=== PATIENT | female | born 1940 | race African-American/Black ===

== ENCOUNTER 2019-07-19 17:11 | Emergency (ER) | payer MEDICARE, OTHER ==
[~2019-07-19] VITALS: Ht 172.7 cm; Wt 99.8 kg
[~2019-07-19 17:11] MED LIST: APIX5TAB PO; ASPI-498 PO; ATOR20TA PO; CHOL400C10 PO; DRON400T PO; FURO1TAB33 PO; GABA300C10 PO; IBUP600T27 PO
[2019-07-19] MEDS ORDERED: cloNIDine HCL 0.1 MG TAB PO ONE (18:45)
[2019-07-19 19:08] LABS: Basophils # (auto) 0 uL; Basophils % (auto) 0.7 % (0.0-2.0); Eosinophils # (auto) 0.1 uL; Eosinophils % (auto) 2.3 % (0.0-7.0); Hematocrit 44.2 % (36.0-46.0); Hemoglobin 14.2 g/dL (12.2-16.2); Lymphocytes # (auto) 1.9 uL; Lymphocytes % (auto) 32.5 % (10.0-50.0); Mean Corpuscular Hemoglobin 28.9 pg (28.0-32.0); Mean Corpuscular Hgb Conc. 32.2 g/dL (32.0-36.0); Mean Corpuscular Volume 89.7 fL (80.0-100.0); Monocytes % (auto) 16.9 % (0.0-12.0); Neutrophils # (auto) 2.8 uL; Neutrophils % (auto) 47.6 % (37.0-80.0); Nucleated Red Blood Cells % 0.1 %; Platelet Count (auto) 178 10^3/uL (140-450); Red Blood Cells 4.92 10^6/uL (4.0-5.20); Red Cell Distribution Width 16.4 % (11.8-14.3)
[2019-07-19 19:22] LABS: Alanine Aminotransferase 14 U/L (13-56); Albumin 3.5 g/dL (3.4-5.0); Anion Gap 5 (5-15); Aspartate Aminotransferase 13 U/L (15-37); BUN/Creatinine Ratio 10.7; Blood Urea Nitrogen 11 mg/dL (7-18); Calcium 8.8 mg/dL (8.5-10.1); Carbon Dioxide 30 mmol/L (21-32); Chloride 104 mmol/L (98-107); GFR African American 67 mL/min; GFR Non-African American 55 mL/min; Glucose 83 mg/dL (74-106); Potassium 3.9 mmol/L (3.5-5.1); Sodium 139 mmol/L (136-145)
[2019-07-19 19:26] LABS: Alkaline Phosphatase 85 U/L (45-117); Bilirubin, Total 0.5 mg/dL (0.2-1.0); Total Protein 8.4 g/dL (6.4-8.2)
[2019-07-19 21:31] VITALS: BP 143/56
== END 2019-07-19 21:53 | disposition home or self-care (01) ==
LOC: ER 17:11
DX: R55 Syncope and collapse (principal); R07.9 Chest pain, unspecified; I10 Essential (primary) hypertension; I67.82 Cerebral ischemia; I48.91 Unspecified atrial fibrillation; E78.00 Pure hypercholesterolemia, unspecified; Z90.710 Acquired absence of both cervix and uterus
CPT/HCPCS: 36415; 70450; 71045; 80053; 83735; 84484; 85025; 93005; 94761

== ENCOUNTER 2020-04-16 15:20 | Inpatient (IN) | payer MEDICARE, OTHER ==
[~2020-04-16] VITALS: Ht 172.7 cm; Wt 96.6 kg
[2020-04-16] MEDS ORDERED: SOTA80TA62 PO (15:28)
[2020-04-16] MEDS ORDERED: IBUP800T24 PO (15:28)
[2020-04-16] MEDS ORDERED: POTA10TA75 PO (15:28)
[2020-04-16] MEDS ORDERED: FUR20T PO (15:28)
[2020-04-16] MEDS ORDERED: HYDR-2691 PO (15:28)
[2020-04-16 15:53] LABS: Basophils # (auto) 0 10 ^3/uL (0-0.2); Basophils % (auto) 0.8 % (0.0-2.0); Eosinophils # (auto) 0.3 10 ^3/uL (0-0.8); Eosinophils % (auto) 7.1 % (0.0-7.0); Hematocrit 41.1 % (36.0-46.0); Hemoglobin 12.9 g/dL (12.2-16.2); Lymphocytes # (auto) 1.5 10 ^3/uL (0.4-5.4); Lymphocytes % (auto) 32.4 % (10.0-50.0); Mean Corpuscular Hgb Conc. 31.5 g/dL (32.0-36.0); Mean Corpuscular Volume 88.9 fL (80.0-100.0); Monocytes # (auto) 0.8 10 ^3/uL (0-1.3); Monocytes % (auto) 17.3 % (0.0-12.0); Neutrophils % (auto) 42.4 % (37.0-80.0); Nucleated Red Blood Cells % 0.1 %; Platelet Count (auto) 204 10^3/uL (140-450); Red Blood Cells 4.62 10^6/uL (4.0-5.20); Red Cell Distribution Width 17.8 % (11.8-14.3); White Blood Cell 4.6 10^3/uL (4.4-10.8)
[2020-04-16 16:07] LABS: Alanine Aminotransferase 15 U/L (13-56); Albumin 3.6 g/dL (3.4-5.0); Anion Gap 7 (5-15); Aspartate Aminotransferase 11 U/L (15-37); BUN/Creatinine Ratio 15.2; Blood Urea Nitrogen 17 mg/dL (7-18); Calcium 8.6 mg/dL (8.5-10.1); Carbon Dioxide 29 mmol/L (21-32); Chloride 106 mmol/L (98-107); GFR African American 61 mL/min; GFR Non-African American 50 mL/min; Glucose 108 mg/dL (74-106); Sodium 142 mmol/L (136-145)
[2020-04-16 16:12] LABS: Alkaline Phosphatase 92 U/L (45-117); Bilirubin, Total 0.4 mg/dL (0.2-1.0); Total Protein 8.2 g/dL (6.4-8.2)
[2020-04-16 16:30] LABS: INR 1.03 (0.9-1.15); Partial Thromboplastin Time 29.7 sec (23.0-31.2)
[2020-04-16] MEDS ORDERED: DOPamine 1600MCG/ML D5W 250 ML IV ONE (17:15)
[2020-04-16] MEDS ORDERED: IBUPROFEN 600 MG TAB PO PRN (18:30)
[2020-04-16] MEDS ORDERED: NITROGLYCERIN 0.4 MG SL TAB SL PRN (18:30)
[2020-04-16] MEDS ORDERED: MORPHINE SULF INJ 2 MG/ML SYRINGE 1ML IV PRN (18:30)
[2020-04-16] MEDS ORDERED: ONDANSETRON HCL 4 MG/2 ML VIAL IV PRN (18:30)
[2020-04-16 19:09] LABS: Urine WBC None Seen /hpf (0 - 5)
[2020-04-16 20:13] LABS: Urine Bacteria NONE SEEN /hpf (None Seen); Urine Blood TRACE /uL (Negative); Urine Specific Gravity 1.011 (1.001-1.035)
[2020-04-16] MEDS ORDERED: DOPamine 1600MCG/ML D5W 250 ML IV SCH (21:10)
--- NOTE | 2020-04-16 22:15 | NUR ---
Telemetry admit from LIZETTE KAUR admitted to Telemetry unit after SBAR received. Patient oriented to Taylor Teresa, primary RN, unit, room, bed, and unit policies regarding patient care and visiting hours. Patient now on continuous telemetry monitoring, tele box # [id number] and telemetry reading on arrival to unit is bradycardia. Patient placed on bedside oxygen, weighed by bedscale and encouraged to call if they need something. All questions and concerns addressed, patient verbalized understanding.
[2020-04-16] MEDS: POTASSIUM CHL 10 Meq TABLET PO SCH (22:44)
[2020-04-16] MEDS: APIXABAN 5 MG TAB PO SCH (22:45)
[2020-04-16] MEDS: GABAPENTIN 300 MG CAP PO SCH (22:45)
[2020-04-16] MEDS: hydrALAZINE HCL 25 MG TAB PO SCH (22:46)
[2020-04-16] MEDS: HYDROcodone-ACET 5/325MG TAB PO PRN (22:46)
--- NOTE | 2020-04-16 22:46 | NUR ---
Patient complains of headache at 03/20, [place] PO given, will continue to monitor.
--- NOTE | 2020-04-16 23:50 | NUR ---
Latest pain level is 3/10, will continue care.
[2020-04-17 05:00] VITALS: BP 116/67
[2020-04-17 06:19] LABS: Hematocrit 41.7 % (36.0-46.0); Hemoglobin 13.1 g/dL (12.2-16.2); Mean Corpuscular Hemoglobin 28.2 pg (28.0-32.0); Mean Corpuscular Hgb Conc. 31.5 g/dL (32.0-36.0); Mean Corpuscular Volume 89.6 fL (80.0-100.0); Platelet Count (auto) 178 10^3/uL (140-450); Red Blood Cells 4.66 10^6/uL (4.0-5.20); Red Cell Distribution Width 17.8 % (11.8-14.3)
[2020-04-17 06:25] LABS: Band Neutrophils % (manual) 0; Basophils % (manual) 0 (0.0-2.0); Blast Cells 0; Metamyelocytes % 0; Myelocytes % 0; Promyelocytes % 0; Reactive Lymphocytes 0
[2020-04-17 06:34] LABS: Albumin 3.2 g/dL (3.4-5.0); Anion Gap 4 (5-15); Blood Urea Nitrogen 14 mg/dL (7-18); Calcium 8.4 mg/dL (8.5-10.1); Carbon Dioxide 28 mmol/L (21-32); Chloride 108 mmol/L (98-107); Glucose 97 mg/dL (74-106); Potassium 3.8 mmol/L (3.5-5.1); Sodium 140 mmol/L (136-145)
[2020-04-17 06:39] LABS: Alanine Aminotransferase 12 U/L (13-56); Alkaline Phosphatase 80 U/L (45-117); Aspartate Aminotransferase 12 U/L (15-37); BUN/Creatinine Ratio 17.5; Bilirubin, Total 0.4 mg/dL (0.2-1.0); GFR African American 89 mL/min; GFR Non-African American 74 mL/min; Total Protein 7.2 g/dL (6.4-8.2)
[2020-04-17 07:21] LABS: Lymphocytes % (manual) 36 (10.0-50.0)
[2020-04-17 07:22] LABS: Eosinophils % (manual) 9 (0-7); Monocytes % (manual) 16 (0-12)
--- NOTE | 2020-04-17 07:30 | NUR ---
Opening shift note Assumed care of patient from NOC RN. Patient is AOx4, no s/s of distress noted. Bed is in lowest locked position, side rails up x2, and call light is within reach. Updated patient on plan of care and patient ,educated patient to call for assistance as needed. verbalized understanding. Will continue to monitor q1hr and PRN.
[2020-04-17 09:00] VITALS: BP 140/80
[2020-04-17] MEDS ORDERED: ATORVASTATIN 20 MG TAB PO SCH (10:00)
[2020-04-17] MEDS ORDERED: CHOLECALCIFEROL (VITD3) 1,000UNIT=25mCg TAB PO SCH (10:00)
[2020-04-17] MEDS ORDERED: ASPirin-EC 81 mg tab PO SCH (10:00)
[2020-04-17] MEDS ORDERED: CHOLECALCIFEROL 1000 UNIT PO SCH (10:00)
[2020-04-17] MEDS ORDERED: FUROSEMIDE 20 MG TAB PO SCH (10:00)
[2020-04-17] MEDS: APIXABAN 5 MG TAB PO SCH (10:21)
[2020-04-17] MEDS: GABAPENTIN 300 MG CAP PO SCH (10:21)
[2020-04-17] MEDS: POTASSIUM CHL 10 Meq TABLET PO SCH (10:22)
[2020-04-17] MEDS: HYDROcodone-ACET 5/325MG TAB PO PRN ×2 (10:23→15:35)
[2020-04-17] MEDS: hydrALAZINE HCL 25 MG TAB PO SCH (10:23)
--- NOTE | 2020-04-17 11:35 | NUR ---
Physician rounding Dr. Turner at bedside. Updated MD on patient status. Per MD patient can be DC/'d if cleared by cardio. No new orders received. Will continue care.
[2020-04-17 12:41] VITALS: BP 136/78
--- NOTE | 2020-04-17 14:24 | NUR ---
Physician rounding Dr. Walker at nurses station. Updated him on patient status, per MD patient can be D/C'd today. Will notify Dr. Turner. Will continue care.
[2020-04-17 16:11] VITALS: BP 138/63
[2020-04-17 17:00] VITALS: BP 142/80
--- NOTE | 2020-04-17 17:00 | NUR ---
Discharge note Discharge instructions given as ordered. Encourage to follow up with PMD as instructed. All questions and concerns addressed. Patient verbalized understanding. IV removed with catheter intact, pressure dressing applied. Telemetry unit returned to ICU. Patient stated "I would like to walk down to the lobby and wait for my ride. Patient ambulated to main lobby with all personal belongings, accompanied by staff member. No distress noted at time of departure.
== END 2020-04-17 17:00 | disposition home or self-care (01) | DRG 311 ==
LOC: ER 15:20 → TELE 15:21 → TELE-WESTW 22:15
PROVIDERS: ADMIT Specialist; ATTEND Specialist
DX: I24.9 Acute ischemic heart disease, unspecified (principal); I25.110 Atherosclerotic heart disease of native coronary artery with unstable angina pectoris; I11.0 Hypertensive heart disease with heart failure; R00.1 Bradycardia, unspecified; E78.5 Hyperlipidemia, unspecified; I27.20 Pulmonary hypertension, unspecified; I48.0 Paroxysmal atrial fibrillation; J43.9 Emphysema, unspecified; Z79.01 Long term (current) use of anticoagulants; Z82.49 Family history of ischemic heart disease and other diseases of the circulatory system; Z90.710 Acquired absence of both cervix and uterus; Z87.891 Personal history of nicotine dependence; Z98.51 Tubal ligation status; I50.9 Heart failure, unspecified
CPT/HCPCS: 36415; 71045; 80053; 81001; 84484; 85007; 85025; 85027; 85610; 85730; 93005; 99291; G0378

== ENCOUNTER 2021-01-21 22:17 | Inpatient (IN) | payer MEDICARE, OTHER ==
[~2021-01-21] VITALS: Ht 172.7 cm; Wt 96.6 kg
[~2021-01-21 22:17] MED LIST changes: +FUR20T PO; +HYDR25TA87 PO; +IBUP800T26 PO; +POTA-264 PO; +SOTA80TA62 PO
[2021-01-21 23:27] LABS: Basophils # (auto) 0 10 ^3/uL (0-0.2); Basophils % (auto) 0.5 % (0.0-2.0); Eosinophils # (auto) 0.3 10 ^3/uL (0-0.8); Eosinophils % (auto) 3.7 % (0.0-7.0); Hematocrit 40.4 % (36.0-46.0); Hemoglobin 13.6 g/dL (12.2-16.2); Lymphocytes # (auto) 1.6 10 ^3/uL (0.4-5.4); Lymphocytes % (auto) 23.7 % (10.0-50.0); Mean Corpuscular Hemoglobin 29.9 pg (28.0-32.0); Mean Corpuscular Hgb Conc. 33.6 g/dL (32.0-36.0); Mean Corpuscular Volume 89.1 fL (80.0-100.0); Monocytes # (auto) 0.7 10 ^3/uL (0-1.3); Monocytes % (auto) 10.4 % (0.0-12.0); Neutrophils # (auto) 4.3 10 ^3/uL (1.6-8.6); Neutrophils % (auto) 61.7 % (37.0-80.0); Nucleated Red Blood Cells % 0.1 %; Platelet Count (auto) 198 10^3/uL (140-450); Red Blood Cells 4.53 10^6/uL (4.0-5.20); Red Cell Distribution Width 17.3 % (11.8-14.3)
[2021-01-21 23:45] LABS: Albumin 3.8 g/dL (3.4-5.0); BUN/Creatinine Ratio 12.5; Calcium 8.7 mg/dL (8.5-10.1); Magnesium 2.1 mg/dL (1.6-2.6); Potassium 3.9 mmol/L (3.5-5.1)
[2021-01-21 23:50] LABS: Bilirubin, Total 0.5 mg/dL (0.2-1.0); Total Protein 8.1 g/dL (6.4-8.2)
[2021-01-21 23:57] LABS: INR 0.99 (0.9-1.15)
[2021-01-22] MEDS ORDERED: ASPirin 81 mg TAB PO ONE (00:30)
[2021-01-22] MEDS ORDERED: ONDANSETRON HCL 4 MG/2 ML VIAL IV ONE (01:00)
[2021-01-22] MEDS ORDERED: MORPHINE SULF INJ 2 MG/ML SYRINGE 1ML IV ONE (01:00)
[2021-01-22] MEDS ORDERED: NITROGLYCERIN 0.4 MG SL TAB SL PRN (03:45)
[2021-01-22] MEDS ORDERED: MORPHINE SULF INJ 2 MG/ML SYRINGE 1ML IV PRN ×2 (03:45)
[2021-01-22] MEDS ORDERED: BACLOFEN 10 MG TAB PO PRN (03:45)
[2021-01-22] MEDS ORDERED: ONDANSETRON HCL 4 MG/2 ML VIAL IV PRN (03:45)
[2021-01-22] MEDS ORDERED: ENOXAPARIN SOD 100 MG/1 ML SYRINGE SC ONE (04:30)
[2021-01-22 05:27] VITALS: BP 156/68
[2021-01-22] MEDS ORDERED: FURO20TA3 PO (06:22)
[2021-01-22] MEDS ORDERED: BACL10TA PO (06:26)
[2021-01-22] MEDS ORDERED: ACET-1156 PO (06:26)
[2021-01-22 07:30] LABS: Basophils # (auto) 0 10 ^3/uL (0-0.2); Basophils % (auto) 0.6 % (0.0-2.0); Eosinophils # (auto) 0 10 ^3/uL (0-0.8); Eosinophils % (auto) 0.6 % (0.0-7.0); Hematocrit 40.7 % (36.0-46.0); Hemoglobin 13.2 g/dL (12.2-16.2); Lymphocytes # (auto) 1.8 10 ^3/uL (0.4-5.4); Mean Corpuscular Hemoglobin 28.8 pg (28.0-32.0); Mean Corpuscular Hgb Conc. 32.4 g/dL (32.0-36.0); Mean Corpuscular Volume 88.9 fL (80.0-100.0); Monocytes # (auto) 0.9 10 ^3/uL (0-1.3); Monocytes % (auto) 12.3 % (0.0-12.0); Neutrophils # (auto) 4.5 10 ^3/uL (1.6-8.6); Neutrophils % (auto) 61.5 % (37.0-80.0); Nucleated Red Blood Cells % 0.1 %; Platelet Count (auto) 187 10^3/uL (140-450); Red Blood Cells 4.58 10^6/uL (4.0-5.20); Red Cell Distribution Width 16.7 % (11.8-14.3); White Blood Cell 7.3 10^3/uL (4.4-10.8)
[2021-01-22 07:47] LABS: Albumin 3.2 g/dL (3.4-5.0); Calcium 8.4 mg/dL (8.5-10.1); Potassium 3.9 mmol/L (3.5-5.1)
[2021-01-22 07:52] LABS: Bilirubin, Total 0.6 mg/dL (0.2-1.0); Total Protein 7.3 g/dL (6.4-8.2)
[2021-01-22 09:00] VITALS: BP 141/68
[2021-01-22] MEDS: SOTALOL HCL 80 MG TAB PO SCH ×2 (09:54→21:53)
[2021-01-22] MEDS: FUROSEMIDE 20 MG TAB PO SCH (09:55)
[2021-01-22] MEDS: GABAPENTIN 300 MG CAP PO SCH ×2 (09:55→21:53)
[2021-01-22] MEDS: ATORVASTATIN 20 MG TAB PO SCH (09:56)
[2021-01-22] MEDS: APIXABAN 5 MG TAB PO SCH ×2 (09:56→21:53)
[2021-01-22] MEDS: hydrALAZINE HCL 25 MG TAB PO SCH ×2 (09:56→21:54)
[2021-01-22] MEDS: POTASSIUM CHL 10 Meq TABLET PO SCH ×2 (09:57→21:54)
[2021-01-22] MEDS ORDERED: ISOSORBIDE MONONITRATE ER 60 MG TAB PO SCH (10:00)
[2021-01-22 13:00] VITALS: BP 115/58
[2021-01-22 16:51] VITALS: BP 92/58
[2021-01-22 21:54] VITALS: BP 113/55
[2021-01-23 05:00] VITALS: BP 103/56
[2021-01-23 05:21] LABS: Basophils # (auto) 0 10 ^3/uL (0-0.2); Basophils % (auto) 0.4 % (0.0-2.0); Eosinophils # (auto) 0.2 10 ^3/uL (0-0.8); Eosinophils % (auto) 3.6 % (0.0-7.0); Hematocrit 37.2 % (36.0-46.0); Hemoglobin 12.6 g/dL (12.2-16.2); Lymphocytes # (auto) 2.6 10 ^3/uL (0.4-5.4); Lymphocytes % (auto) 44.1 % (10.0-50.0); Mean Corpuscular Hemoglobin 29.9 pg (28.0-32.0); Mean Corpuscular Hgb Conc. 33.9 g/dL (32.0-36.0); Mean Corpuscular Volume 88.4 fL (80.0-100.0); Monocytes % (auto) 17.1 % (0.0-12.0); Neutrophils # (auto) 2.1 10 ^3/uL (1.6-8.6); Neutrophils % (auto) 34.8 % (37.0-80.0); Nucleated Red Blood Cells % 0.1 %; Platelet Count (auto) 160 10^3/uL (140-450); Red Blood Cells 4.21 10^6/uL (4.0-5.20); Red Cell Distribution Width 16.7 % (11.8-14.3); White Blood Cell 5.9 10^3/uL (4.4-10.8)
[2021-01-23 05:31] LABS: Calcium 8.2 mg/dL (8.5-10.1); Potassium 4.1 mmol/L (3.5-5.1)
[2021-01-23 05:36] LABS: BUN/Creatinine Ratio 15.7; Bilirubin, Total 0.5 mg/dL (0.2-1.0); Total Protein 6.6 g/dL (6.4-8.2)
[2021-01-23 09:00] VITALS: BP 127/73
[2021-01-23] MEDS: ATORVASTATIN 20 MG TAB PO SCH (09:07)
[2021-01-23] MEDS: APIXABAN 5 MG TAB PO SCH ×2 (09:07→22:27)
[2021-01-23] MEDS: SOTALOL HCL 80 MG TAB PO SCH ×2 (09:07→22:00)
[2021-01-23] MEDS: ISOSORBIDE MONONITRATE ER 60 MG TAB PO SCH (09:09)
[2021-01-23] MEDS: POTASSIUM CHL 10 Meq TABLET PO SCH ×2 (09:10→22:27)
[2021-01-23] MEDS: FUROSEMIDE 20 MG TAB PO SCH (09:11)
[2021-01-23] MEDS: GABAPENTIN 300 MG CAP PO SCH ×2 (09:11→22:28)
[2021-01-23] MEDS: hydrALAZINE HCL 25 MG TAB PO SCH ×2 (09:11→22:26)
[2021-01-23 13:00] VITALS: BP 118/64
[2021-01-23] MEDS: IBUPROFEN 600 MG TAB PO PRN (15:51)
[2021-01-23 16:27] VITALS: BP 139/71
[2021-01-23 22:00] VITALS: BP 142/78
[2021-01-24 05:00] VITALS: BP 126/73
[2021-01-24] MEDS: IBUPROFEN 600 MG TAB PO PRN ×2 (06:47→22:37)
[2021-01-24 08:51] VITALS: BP 127/55
[2021-01-24] MEDS: FUROSEMIDE 20 MG TAB PO SCH (09:19)
[2021-01-24] MEDS: APIXABAN 5 MG TAB PO SCH ×2 (09:20→21:53)
[2021-01-24] MEDS: ATORVASTATIN 20 MG TAB PO SCH (09:20)
[2021-01-24] MEDS: GABAPENTIN 300 MG CAP PO SCH ×2 (09:20→21:54)
[2021-01-24] MEDS: POTASSIUM CHL 10 Meq TABLET PO SCH ×2 (09:20→21:54)
[2021-01-24] MEDS: hydrALAZINE HCL 25 MG TAB PO SCH ×2 (09:21→21:53)
[2021-01-24] MEDS: SOTALOL HCL 80 MG TAB PO SCH ×2 (09:22→22:00)
[2021-01-24] MEDS: ISOSORBIDE MONONITRATE ER 60 MG TAB PO SCH (09:22)
[2021-01-24 12:48] VITALS: BP 117/57
[2021-01-24 16:48] VITALS: BP 103/53
[2021-01-24 22:00] VITALS: BP 124/73
[2021-01-25 05:00] VITALS: BP 122/53
[2021-01-25 08:00] VITALS: BP 124/73
[2021-01-25] MEDS: hydrALAZINE HCL 25 MG TAB PO SCH (08:46)
[2021-01-25] MEDS: SOTALOL HCL 80 MG TAB PO SCH (08:47)
[2021-01-25] MEDS: ISOSORBIDE MONONITRATE ER 60 MG TAB PO SCH (08:47)
[2021-01-25] MEDS: APIXABAN 5 MG TAB PO SCH (08:47)
[2021-01-25] MEDS: POTASSIUM CHL 10 Meq TABLET PO SCH (08:48)
[2021-01-25] MEDS: ATORVASTATIN 20 MG TAB PO SCH (08:48)
[2021-01-25] MEDS: FUROSEMIDE 20 MG TAB PO SCH (08:48)
[2021-01-25] MEDS: GABAPENTIN 300 MG CAP PO SCH (08:48)
[2021-01-25 09:12] VITALS: BP 122/98
[2021-01-25 09:29] VITALS: BP 122/98
== END 2021-01-25 11:47 | disposition home or self-care (01) | DRG 282 ==
LOC: ER 22:18 → TELE 01-22 03:36 → TELE-WESTW 01-22 05:21
PROVIDERS: ADMIT Internal Medicine; ATTEND Internal Medicine
DX: I21.4 Non-ST elevation (NSTEMI) myocardial infarction (principal); I25.110 Atherosclerotic heart disease of native coronary artery with unstable angina pectoris; E78.5 Hyperlipidemia, unspecified; I10 Essential (primary) hypertension; I27.20 Pulmonary hypertension, unspecified; I48.0 Paroxysmal atrial fibrillation; Z20.822 Contact with and (suspected) exposure to COVID-19; J43.9 Emphysema, unspecified; Z79.01 Long term (current) use of anticoagulants; Z79.899 Other long term (current) drug therapy; Z82.49 Family history of ischemic heart disease and other diseases of the circulatory system; Z87.891 Personal history of nicotine dependence; Z90.710 Acquired absence of both cervix and uterus
CPT/HCPCS: 36415; 71045; 80053; 83735; 83880; 84484; 85025; 85610; 87426; 93005; 93306; 96372; 96374; 96375; G0378; J2405

== ENCOUNTER 2023-09-06 13:04 | Inpatient (IN) | payer MEDICARE, OTHER ==
[~2023-09-06] VITALS: Ht 172.7 cm; Wt 72.5 kg
[~2023-09-06 13:04] MED LIST changes: +ACET-1881 PO; -ASPI-498 PO; +BACL10TA PO; -CHOL400C10 PO; -DRON400T PO; -FUR20T PO; -FURO1TAB33 PO; +FURO20TA3 PO; +GABA-1250 PO; -GABA300C10 PO; +IBUP-1454 PO; -IBUP600T27 PO; -IBUP800T26 PO
[2023-09-06 14:05] LABS: Basophils # (auto) 0 10 ^3/uL (0-0.2); Basophils % (auto) 0.7 % (0.0-2.0); Eosinophils # (auto) 0.1 10 ^3/uL (0-0.8); Eosinophils % (auto) 2.1 % (0.0-7.0); Hemoglobin 14.2 g/dL (12.2-16.2); Lymphocytes % (auto) 32.7 % (10.0-50.0); Mean Corpuscular Hemoglobin 29.4 pg (28.0-32.0); Mean Corpuscular Hgb Conc. 32.3 g/dL (32.0-36.0); Mean Corpuscular Volume 90.9 fL (80.0-100.0); Monocytes # (auto) 0.8 10 ^3/uL (0-1.3); Monocytes % (auto) 13.8 % (0.0-12.0); Neutrophils # (auto) 3.1 10 ^3/uL (1.6-8.6); Neutrophils % (auto) 50.7 % (37.0-80.0); Nucleated Red Blood Cells % 0.2 %; Red Blood Cells 4.84 10^6/uL (4.0-5.20)
[2023-09-06 14:10] LABS: Alkaline Phosphatase 84 U/L (46-116); Anion Gap 12 (5-15); Aspartate Aminotransferase 19 U/L (13-40); BUN/Creatinine Ratio 16.3 (10.0-20.0); Bilirubin, Total 0.8 mg/dL (0.2-1.0); Blood Urea Nitrogen 14 mg/dL (9-23); Carbon Dioxide 22 mmol/L (20-30); Chloride 106 mmol/L (98-107); Glucose 121 mg/dL (74-106); Potassium 3.9 mmol/L (3.5-5.1); Sodium 140 mmol/L (136-145); Total Protein 7.1 g/dL (5.7-8.2)
[2023-09-06 14:15] LABS: Alanine Aminotransferase 9 U/L (7-40)
[2023-09-06] MEDS ORDERED: SODIUM CHLORIDE 0.9% 1,000 ML IV ONE ×2 (14:15→18:00)
[2023-09-06 14:17] VITALS: PULSE 122; RESP 19; O2SAT 100
[2023-09-06] MEDS ORDERED: METOPROLOL TARTRATE 1MG/1ML-5ML VIAL IV ONE ×2 (15:00→16:30)
[2023-09-06 15:16] VITALS: PULSE 113; RESP 19; O2SAT 98
[2023-09-06 16:23] LABS: Lactic Acid w/Reflex 2.1 mmol/L (0.4-2.0)
[2023-09-06] MEDS ORDERED: dilTIAZem 125mg/125ml BAG KIT 125 ML IV ONE (17:15)
[2023-09-06] MEDS ORDERED: FUROSEMIDE 40 MG/4 ML VIAL IV ONE (18:00)
[2023-09-06] MEDS ORDERED: PIPERACILLIN-TAZOB 3.375GM 100 ML IV ONE (18:00)
[2023-09-06 18:56] LABS: Urine Bacteria NONE SEEN /hpf (None Seen); Urine Blood 2+ /uL (Negative); Urine Clarity Clear (Clear); Urine Color Yellow (Yellow); Urine Hyaline Cast FEW /lpf (0 - 2); Urine Mucus FEW (None Seen); Urine Protein, UAD 1+ (Negative); Urine Specific Gravity 1.014 (1.001-1.035); Urine Urobilinogen Normal (Negative); Urine WBC 1 /hpf (0 - 5)
[2023-09-06 19:30] VITALS: PULSE 97; RESP 18; O2SAT 98
[2023-09-06] MEDS ORDERED: dilTIAZem 125mg/125ml BAG KIT 125 ML IV SCH (21:00)
[2023-09-06] MEDS ORDERED: MORPHINE SULFATE INJ 2 MG/ml SYRG IV PRN (21:00)
[2023-09-06] MEDS ORDERED: NITROGLYCERIN 0.4 MG SL TAB SL PRN (21:00)
[2023-09-06] MEDS ORDERED: ONDANSETRON HCL 4 MG/2 ML VIAL IV PRN (21:00)
[2023-09-06 21:55] VITALS: PULSE 157; RESP 17; O2SAT 99
[2023-09-06] MEDS: APIXABAN 5 MG TAB PO SCH (22:05)
[2023-09-06] MEDS: ATORVASTATIN 20 MG TAB PO SCH (22:05)
[2023-09-07] VITALS (67 sets, daily range): BP systolic 90–154; BP diastolic 55–97; PULSE 70–160; RESP 13–32; TEMP 97.6–98.5; O2SAT 76–100
[2023-09-07] MEDS ORDERED: ACETAMINOPHEN 325 MG TAB PO ONE (06:00)
[2023-09-07 07:42] LABS: Hematocrit 40.3 % (36.0-46.0); Hemoglobin 12.7 g/dL (12.2-16.2); Mean Corpuscular Hemoglobin 29.4 pg (28.0-32.0); Mean Corpuscular Hgb Conc. 31.6 g/dL (32.0-36.0); Mean Corpuscular Volume 92.9 fL (80.0-100.0); Red Blood Cells 4.33 10^6/uL (4.0-5.20); Red Cell Distribution Width 17.3 % (11.8-14.3); White Blood Cell 5.5 10^3/uL (4.4-10.8)
[2023-09-07 08:01] LABS: Basophils % (manual) 0 (0.0-2.0); Blast Cells 0; Metamyelocytes % 0; Myelocytes % 0; Promyelocytes % 0; Reactive Lymphocytes 0
[2023-09-07 08:07] LABS: Alkaline Phosphatase 73 U/L (46-116); Anion Gap 10 (5-15); Calcium 8.7 mg/dL (8.5-10.1); Carbon Dioxide 26 mmol/L (20-30); Chloride 107 mmol/L (98-107); Glucose 125 mg/dL (74-106); Potassium 3.2 mmol/L (3.5-5.1); Sodium 143 mmol/L (136-145)
[2023-09-07 08:08] LABS: Albumin 3.7 g/dL (3.2-4.8); Aspartate Aminotransferase 14 U/L (13-40); BUN/Creatinine Ratio 11.9 (10.0-20.0); Bilirubin, Total 0.5 mg/dL (0.2-1.0); Blood Urea Nitrogen 10 mg/dL (9-23); Total Protein 6.8 g/dL (5.7-8.2)
[2023-09-07 08:14] LABS: Alanine Aminotransferase < 9 U/L (7-40)
[2023-09-07 08:30] LABS: Band Neutrophils % (manual) 1; Lymphocytes % (manual) 30 (10.0-50.0)
[2023-09-07 08:31] LABS: Anisocytosis Slight; Eosinophils % (manual) 2 (0-7); Hypochromia Slight; Monocytes % (manual) 17 (0-12)
[2023-09-07 08:32] LABS: Platelet Estimate Adequate
[2023-09-07] MEDS: APIXABAN 5 MG TAB PO SCH ×2 (08:54→22:42)
[2023-09-07] MEDS ORDERED: POTASSIUM CHL 20MEQ/100ML 100 ML IV SCH (09:00)
[2023-09-07] MEDS ORDERED: POTASSIUM EFFERVESENT TAB 25 MEQ PO ONE (09:15)
[2023-09-07] MEDS: dilTIAZem HCL 60 MG TAB PO SCH ×3 (09:32→17:37)
[2023-09-07] MEDS: POTASSIUM CHL 10 Meq TABLET PO SCH (10:00)
[2023-09-07] MEDS ORDERED: SOTALOL HCL 80 MG TAB PO SCH ×2 (10:00→22:00)
[2023-09-07] MEDS ORDERED: hydroCHLOROthiazide 25 MG TAB PO SCH (10:00)
[2023-09-07] MEDS ORDERED: DIGOXIN 0.25 MG TAB PO ONE (20:15)
[2023-09-07] MEDS: IBUPROFEN 400 MG TAB PO PRN (20:58)
[2023-09-07] MEDS: ATORVASTATIN 20 MG TAB PO SCH (22:42)
[2023-09-08] VITALS (53 sets, daily range): BP systolic 85–130; BP diastolic 52–72; PULSE 54–109; RESP 11–29; TEMP 97.1–98.4; O2SAT 63–100
[2023-09-08] MEDS ORDERED: DIGOXIN 0.25 MG TAB PO ONE ×3 (02:00→15:00)
[2023-09-08 04:03] LABS: Chloride 108 mmol/L (98-107); Hemoglobin 12.3 g/dL (12.2-16.2); Mean Corpuscular Hgb Conc. 33.1 g/dL (32.0-36.0); Mean Corpuscular Volume 90.7 fL (80.0-100.0); Potassium 3.6 mmol/L (3.5-5.1); Red Blood Cells 4.08 10^6/uL (4.0-5.20); Red Cell Distribution Width 17.2 % (11.8-14.3); Sodium 140 mmol/L (136-145); White Blood Cell 4.6 10^3/uL (4.4-10.8)
[2023-09-08 04:04] LABS: Anion Gap 5 (5-15); Carbon Dioxide 27 mmol/L (20-30)
[2023-09-08 04:05] LABS: Calcium 8.4 mg/dL (8.7-10.4)
[2023-09-08 04:09] LABS: Glucose 93 mg/dL (74-106)
[2023-09-08 04:10] LABS: BUN/Creatinine Ratio 9.7 (10.0-20.0); Blood Urea Nitrogen 7 mg/dL (9-23)
[2023-09-08 04:13] LABS: Basophils % (manual) 0 (0.0-2.0); Blast Cells 0; Promyelocytes % 0; Reactive Lymphocytes 0
[2023-09-08] MEDS: dilTIAZem HCL 60 MG TAB PO SCH ×5 (06:00→23:54)
[2023-09-08 07:48] LABS: Band Neutrophils % (manual) 6; Eosinophils % (manual) 5 (0-7); Lymphocytes % (manual) 26 (10.0-50.0); Metamyelocytes % 7; Monocytes % (manual) 14 (0-12); Myelocytes % 11; Platelet Estimate Adequate
[2023-09-08] MEDS: POTASSIUM CHL 10 Meq TABLET PO SCH (09:31)
[2023-09-08] MEDS: APIXABAN 5 MG TAB PO SCH ×2 (09:31→21:20)
[2023-09-08] MEDS: IBUPROFEN 400 MG TAB PO PRN (11:48)
[2023-09-08] MEDS: SOTALOL HCL 80 MG TAB PO SCH ×2 (13:52→21:20)
[2023-09-08] MEDS: ATORVASTATIN 20 MG TAB PO SCH (21:20)
[2023-09-09] VITALS (10 sets, daily range): BP systolic 95–149; BP diastolic 57–80; PULSE 52–86; RESP 17–22; TEMP 97.5–98.4; O2SAT 94–99
[2023-09-09] MEDS: IBUPROFEN 400 MG TAB PO PRN ×3 (02:02→21:41)
[2023-09-09 05:38] LABS: Hematocrit 37.4 % (36.0-46.0); Hemoglobin 11.9 g/dL (12.2-16.2); Mean Corpuscular Hemoglobin 29.1 pg (28.0-32.0); Mean Corpuscular Hgb Conc. 31.9 g/dL (32.0-36.0); Mean Corpuscular Volume 91.2 fL (80.0-100.0); Red Cell Distribution Width 16.8 % (11.8-14.3); White Blood Cell 5.4 10^3/uL (4.4-10.8)
[2023-09-09 05:39] LABS: Anion Gap 6 (5-15); Carbon Dioxide 25 mmol/L (20-30); Chloride 107 mmol/L (98-107); Potassium 3.6 mmol/L (3.5-5.1); Sodium 138 mmol/L (136-145)
[2023-09-09 05:40] LABS: Calcium 8.4 mg/dL (8.7-10.4)
[2023-09-09 05:45] LABS: BUN/Creatinine Ratio 10.3 (10.0-20.0); Blood Urea Nitrogen 8 mg/dL (9-23); Glucose 95 mg/dL (74-106)
[2023-09-09] MEDS: SOTALOL HCL 80 MG TAB PO SCH ×3 (06:09→21:40)
[2023-09-09] MEDS: dilTIAZem HCL 60 MG TAB PO SCH ×2 (06:09→12:41)
[2023-09-09 06:18] LABS: Basophils % (manual) 0 (0.0-2.0); Blast Cells 0; Metamyelocytes % 0; Myelocytes % 0; Promyelocytes % 0; Reactive Lymphocytes 0
[2023-09-09 08:30] LABS: Band Neutrophils % (manual) 1; Eosinophils % (manual) 3 (0-7); Lymphocytes % (manual) 35 (10.0-50.0); Monocytes % (manual) 19 (0-12)
[2023-09-09 08:31] LABS: Anisocytosis Slight; Hypochromia Slight; Platelet Estimate Adequate
[2023-09-09] MEDS: POTASSIUM CHL 10 Meq TABLET PO SCH (10:08)
[2023-09-09] MEDS: APIXABAN 5 MG TAB PO SCH ×2 (10:08→21:40)
[2023-09-09] MEDS ORDERED: SOTA80TA20 PO (13:05)
[2023-09-09] MEDS ORDERED: DILT180C62 PO (13:05)
[2023-09-09] MEDS ORDERED: DIGO0.12 PO (13:05)
[2023-09-09] MEDS: ATORVASTATIN 20 MG TAB PO SCH (21:40)
[2023-09-10 05:00] VITALS: BP 121/73; PULSE 65; RESP 18; TEMP 98.2; O2SAT 92
[2023-09-10] MEDS: SOTALOL HCL 80 MG TAB PO SCH ×2 (06:08→14:00)
[2023-09-10] MEDS: IBUPROFEN 400 MG TAB PO PRN (06:11)
[2023-09-10 08:00] VITALS: PULSE 87
[2023-09-10 09:00] VITALS: BP 116/71; PULSE 60; RESP 20; TEMP 98.4; O2SAT 94
[2023-09-10] MEDS: POTASSIUM CHL 10 Meq TABLET PO SCH (09:48)
[2023-09-10] MEDS: APIXABAN 5 MG TAB PO SCH (09:50)
[2023-09-10] MEDS ORDERED: DIGOXIN 0.125 MG TAB PO SCH (10:00)
[2023-09-10] MEDS ORDERED: dilTIAZem HCL 180MG ER CAP PO SCH (10:00)
[2023-09-10 13:00] VITALS: BP 119/71; PULSE 73; RESP 16; TEMP 97.9; O2SAT 97
[2023-09-10] MEDS ORDERED: DILT-102 PO (13:14)
[2023-09-10] MEDS ORDERED: SOTA80TA62 PO (13:14)
[2023-09-10] MEDS ORDERED: DIGO1TAB48 PO (13:14)
[2023-09-10] MEDS ORDERED: APIX5TAB PO (13:14)
[2023-09-10] MEDS ORDERED: ATOR20TA50 PO (13:14)
== END 2023-09-10 16:01 | disposition home or self-care (01) | DRG 309 ==
LOC: ER 13:04 → TELE 21:04 → ICU WEST 09-07 04:04 → TELE-WESTW 09-09 01:08
PROVIDERS: ADMIT Internal Medicine; ATTEND Internal Medicine
DX: I48.20 Chronic atrial fibrillation, unspecified (principal); D68.9 Coagulation defect, unspecified; E78.5 Hyperlipidemia, unspecified; J43.9 Emphysema, unspecified; E66.9 Obesity, unspecified; I27.20 Pulmonary hypertension, unspecified; E11.42 Type 2 diabetes mellitus with diabetic polyneuropathy; K21.9 Gastro-esophageal reflux disease without esophagitis; R00.1 Bradycardia, unspecified; I08.1 Rheumatic disorders of both mitral and tricuspid valves; E87.6 Hypokalemia; Z79.899 Other long term (current) drug therapy; Z82.49 Family history of ischemic heart disease and other diseases of the circulatory system; Z87.891 Personal history of nicotine dependence; Z90.710 Acquired absence of both cervix and uterus; Z68.24 Body mass index [BMI] 24.0-24.9, adult; Z98.51 Tubal ligation status
CPT/HCPCS: 36415; 71045; 80048; 80053; 81001; 83036; 83605; 83735; 83880; 84443; 84484; 85007; 85025; 85027; 87040; 87081; 93005; 93306; 97163; 99291; G0378; J2543

== ENCOUNTER 2024-02-20 14:53 | Inpatient (IN) | payer MEDICARE, OTHER ==
[~2024-02-20] VITALS: Ht 172.7 cm; Wt 89.4 kg
[~2024-02-20 14:53] MED LIST changes: +ATOR20TA50 PO; +DIGO0.12 PO; +DIGO1TAB48 PO; +DILT-102 PO; +DILT180C62 PO; -HYDR25TA87 PO; -IBUP-1454 PO; +SOTA80TA20 PO
[2024-02-20 16:00] LABS: Basophils # (auto) 0 10 ^3/uL (0-0.2); Basophils % (auto) 0.6 % (0.0-2.0); Eosinophils # (auto) 0.3 10 ^3/uL (0-0.8); Eosinophils % (auto) 5.1 % (0.0-7.0); Hemoglobin 13.8 g/dL (12.2-16.2); Lymphocytes % (auto) 32.9 % (10.0-50.0); Mean Corpuscular Hgb Conc. 32.1 g/dL (32.0-36.0); Mean Corpuscular Volume 90.3 fL (80.0-100.0); Monocytes # (auto) 0.7 10 ^3/uL (0-1.3); Monocytes % (auto) 11.3 % (0.0-12.0); Neutrophils % (auto) 50.1 % (37.0-80.0); Nucleated Red Blood Cells % 0.1 %; Red Blood Cells 4.77 10^6/uL (4.0-5.20); Red Cell Distribution Width 18.7 % (11.8-14.3)
[2024-02-20 16:11] LABS: Calcium 8.9 mg/dL (8.5-10.1); Carbon Dioxide 26 mmol/L (20-30)
[2024-02-20 16:16] LABS: Blood Urea Nitrogen 13 mg/dL (9-23); Glucose 125 mg/dL (74-106)
[2024-02-20 16:25] LABS: Anion Gap 6 (5-15); Chloride 108 mmol/L (98-107); Potassium 3.9 mmol/L (3.5-5.1); Sodium 140 mmol/L (136-145)
[2024-02-20] MEDS ORDERED: MORPHINE SULFATE INJ 2 MG/ml SYRG IV PRN ×2 (18:00)
[2024-02-20] MEDS: dilTIAZem 25 MG/5 ML VIAL IV ONE (18:00)
[2024-02-20] MEDS: IPRATROPIUM BROM 0.5 MG/2.5ML INH SOL NEB SCH (18:00)
[2024-02-20] MEDS ORDERED: HYDROcodone-ACET 5/325MG TAB PO PRN (18:00)
[2024-02-20] MEDS ORDERED: NITROGLYCERIN 0.4 MG SL TAB SL PRN (18:00)
[2024-02-20] MEDS ORDERED: DOCUSATE SOD 100 MG CAP PO PRN (18:00)
[2024-02-20] MEDS ORDERED: ONDANSETRON HCL 4 MG/2 ML VIAL IV PRN (18:00)
[2024-02-20] MEDS: LEVALBUTEROL HCL 1.25 MG/3 ML NEB NEB SCH (18:00)
[2024-02-20] MEDS ORDERED: SILD20TA41 PO (18:13)
[2024-02-20 19:30] VITALS: PULSE 82; RESP 18; O2SAT 93; O2SAT 98
[2024-02-20] MEDS: methylPREDNISolone SOD SUCC 125 MG/2 ML VL IV ONE (19:37)
[2024-02-20 20:01] LABS: Urine Bacteria None Seen /hpf (None Seen)
[2024-02-20 20:16] LABS: Urine Blood 1+ /uL (Negative); Urine Budding Yeast OCCASIONAL /hpf (None Seen); Urine Clarity Clear (Clear); Urine Color Yellow (Yellow); Urine Mucus FEW (None Seen); Urine Protein, UAD TRACE (Negative); Urine Specific Gravity 1.021 (1.001-1.035); Urine Urobilinogen Normal (Negative); Urine WBC 1 /hpf (0 - 5); Urine pH 5.5 (5.0-9.0)
[2024-02-20 20:34] LABS: COVID19 ANTIGEN SOFIA FIA NEGATIVE (NEGATIVE); Rapid Influenza A Negative (Negative); Rapid Influenza B Negative (Negative)
[2024-02-20] MEDS: ACETAMINOPHEN 325 MG TAB PO PRN (20:42)
[2024-02-20] MEDS: ATORVASTATIN 20 MG TAB PO SCH (22:04)
[2024-02-20] MEDS: APIXABAN 5 MG TAB PO SCH (22:04)
[2024-02-20] MEDS: SOTALOL HCL 80 MG TAB PO SCH (22:06)
[2024-02-20 23:14] VITALS: BP 139/104; PULSE 118; RESP 18; TEMP 97.8; O2SAT 99
[2024-02-20] MEDS ORDERED: BETA0.0534 TOP (23:18)
[2024-02-20] MEDS ORDERED: TACR0.1O7 TOP (23:18)
[2024-02-20] MEDS ORDERED: FUR20T PO (23:18)
[2024-02-20] MEDS ORDERED: CELE1CAP29 PO (23:18)
[2024-02-20] MEDS ORDERED: SOTA80TA PO (23:18)
[2024-02-20] MEDS ORDERED: SILD20TA PO (23:18)
[2024-02-21] VITALS (18 sets, daily range): BP systolic 90–145; BP diastolic 56–90; PULSE 68–124; RESP 16–20; TEMP 97.5–98; O2SAT 94–99
[2024-02-21 07:04] LABS: Basophils # (auto) 0 10 ^3/uL (0-0.2); Basophils % (auto) 0.1 % (0.0-2.0); Eosinophils # (auto) 0 10 ^3/uL (0-0.8); Eosinophils % (auto) 0.1 % (0.0-7.0); Hematocrit 39.9 % (36.0-46.0); Hemoglobin 12.9 g/dL (12.2-16.2); Lymphocytes % (auto) 18.7 % (10.0-50.0); Mean Corpuscular Hemoglobin 29.1 pg (28.0-32.0); Mean Corpuscular Hgb Conc. 32.3 g/dL (32.0-36.0); Monocytes # (auto) 0.1 10 ^3/uL (0-1.3); Monocytes % (auto) 2.5 % (0.0-12.0); Neutrophils # (auto) 4.4 10 ^3/uL (1.6-8.6); Neutrophils % (auto) 78.6 % (37.0-80.0); Red Blood Cells 4.43 10^6/uL (4.0-5.20); Red Cell Distribution Width 18.7 % (11.8-14.3); White Blood Cell 5.6 10^3/uL (4.4-10.8)
[2024-02-21 07:31] LABS: Alanine Aminotransferase 10 U/L (7-40); Alkaline Phosphatase 86 U/L (46-116); Anion Gap 5 (5-15); BUN/Creatinine Ratio 16.7 (10.0-20.0); Blood Urea Nitrogen 15 mg/dL (9-23); Calcium 8.9 mg/dL (8.5-10.1); Carbon Dioxide 28 mmol/L (20-30); Chloride 107 mmol/L (98-107); Glucose 170 mg/dL (74-106); Potassium 3.9 mmol/L (3.5-5.1); Sodium 140 mmol/L (136-145)
[2024-02-21 07:32] LABS: Albumin 3.6 g/dL (3.2-4.8); Aspartate Aminotransferase 11 U/L (13-40); Bilirubin, Total 0.3 mg/dL (0.2-1.0)
[2024-02-21] MEDS: dilTIAZem HCL 180MG ER CAP PO SCH (09:03)
[2024-02-21] MEDS: FUROSEMIDE 20 MG/2 ML VIAL IV SCH (09:04)
[2024-02-21] MEDS ORDERED: DIGOXIN 0.125 MG TAB PO SCH (10:00)
[2024-02-21] MEDS: SILDENAFIL CITRATE 20 MG TAB PO SCH (10:56)
[2024-02-21] MEDS: DIGOXIN 0.125 MG TAB PO SCH (10:57)
[2024-02-21] MEDS: AZITHROMYCIN 500MG/ 250ML 250 ML IV ONE (17:04)
[2024-02-21] MEDS: SODIUM CHLORIDE 0.9% 1,000 ML IV SCH (17:04)
[2024-02-22] VITALS (8 sets, daily range): BP systolic 91–114; BP diastolic 55–69; PULSE 61–117; RESP 16–18; TEMP 36.7; O2SAT 90–100
[2024-02-22 06:49] LABS: Anion Gap 6 (5-15); Carbon Dioxide 24 mmol/L (20-30); Chloride 109 mmol/L (98-107); Potassium 4.1 mmol/L (3.5-5.1); Sodium 139 mmol/L (136-145)
[2024-02-22 06:51] LABS: Calcium 8.9 mg/dL (8.5-10.1)
[2024-02-22 06:55] LABS: Glucose 99 mg/dL (74-106)
[2024-02-22 06:56] LABS: BUN/Creatinine Ratio 15.9 (10.0-20.0); Blood Urea Nitrogen 13 mg/dL (9-23); Magnesium 1.9 mg/dL (1.6-2.6)
[2024-02-22 07:03] LABS: Basophils # (auto) 0 10 ^3/uL (0-0.2); Basophils % (auto) 0.1 % (0.0-2.0); Eosinophils # (auto) 0 10 ^3/uL (0-0.8); Eosinophils % (auto) 0.2 % (0.0-7.0); Hematocrit 39.5 % (36.0-46.0); Hemoglobin 12.4 g/dL (12.2-16.2); Lymphocytes # (auto) 2.5 10 ^3/uL (0.4-5.4); Lymphocytes % (auto) 18.7 % (10.0-50.0); Mean Corpuscular Hemoglobin 29.1 pg (28.0-32.0); Mean Corpuscular Hgb Conc. 31.3 g/dL (32.0-36.0); Mean Corpuscular Volume 92.8 fL (80.0-100.0); Monocytes # (auto) 1.6 10 ^3/uL (0-1.3); Monocytes % (auto) 11.7 % (0.0-12.0); Neutrophils # (auto) 9.2 10 ^3/uL (1.6-8.6); Neutrophils % (auto) 69.3 % (37.0-80.0); Red Blood Cells 4.26 10^6/uL (4.0-5.20); Red Cell Distribution Width 19.1 % (11.8-14.3); White Blood Cell 13.3 10^3/uL (4.4-10.8)
[2024-02-22] MEDS: DIGOXIN 0.125 MG TAB PO SCH (10:00)
[2024-02-22] MEDS: AZITHROMYCIN 500MG/ 250ML 250 ML IV SCH (10:00)
[2024-02-22] MEDS ORDERED: AZIT-74 PO (10:50)
[2024-02-22] MEDS ORDERED: HYD1TP TOP (14:59)
== END 2024-02-22 17:44 | disposition home or self-care (01) | DRG 177 ==
LOC: ER 14:53 → TELE 17:52 → TELE-EAST 23:00
PROVIDERS: ADMIT Nurse Practitioner Family; ATTEND Internal Medicine
DX: J15.69 Pneumonia due to other Gram-negative bacteria (principal); I50.33 Acute on chronic diastolic (congestive) heart failure; J96.01 Acute respiratory failure with hypoxia; D68.9 Coagulation defect, unspecified; D68.69 Other thrombophilia; I48.92 Unspecified atrial flutter; J15.9 Unspecified bacterial pneumonia; I11.0 Hypertensive heart disease with heart failure; I27.20 Pulmonary hypertension, unspecified; E78.5 Hyperlipidemia, unspecified; G35 Multiple sclerosis; I08.1 Rheumatic disorders of both mitral and tricuspid valves; I70.0 Atherosclerosis of aorta; I48.91 Unspecified atrial fibrillation; G62.9 Polyneuropathy, unspecified; Z20.822 Contact with and (suspected) exposure to COVID-19; K21.9 Gastro-esophageal reflux disease without esophagitis; E66.9 Obesity, unspecified; Z90.710 Acquired absence of both cervix and uterus; Z87.891 Personal history of nicotine dependence; Z82.49 Family history of ischemic heart disease and other diseases of the circulatory system; Z79.1 Long term (current) use of non-steroidal anti-inflammatories (NSAID); Z79.899 Other long term (current) drug therapy; Z79.01 Long term (current) use of anticoagulants; Z68.30 Body mass index [BMI] 30.0-30.9, adult
CPT/HCPCS: 36415; 71045; 80048; 80053; 80162; 81001; 83605; 83735; 83880; 84484; 85025; 85379; 87040; 87426; 87804; 93005; 93306; 94640; 96374; G0378

== ENCOUNTER 2024-08-05 11:13 | Inpatient (IN) | payer MEDICARE, OTHER ==
[~2024-08-05] VITALS: Ht 172.7 cm; Wt 89.0 kg
[~2024-08-05 11:13] MED LIST changes: +AMIO100T3 PO; +AUG875T PO; +AZIT-74 PO; +BENZ200C64 PO; +BETA0.0534 TOP; +CELE1CAP29 PO; +CLOB0.055 TOP; -DIGO1TAB48 PO; -DILT180C62 PO; +DOCU-265 PO; -FURO20TA3 PO; +FURO20TA4 PO; +HYD1TP TOP; +KETO2SHA5 EX; +MONT-8 PO; +SILD20TA41 PO; +SOTA80TA PO; -SOTA80TA62 PO; +TACR0.1O7 TOP
--- NOTE | 2024-08-05 11:20 | ECG ---
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
[2024-08-05 11:47] LABS: Hemoglobin 12.8 g/dL (12.2-16.2); Mean Corpuscular Hemoglobin 29.5 pg (28.0-32.0); Mean Corpuscular Volume 92.3 fL (80.0-100.0); Platelet Count (auto) 183 10^3/uL (140-450); Red Blood Cells 4.34 10^6/uL (4.0-5.20); Red Cell Distribution Width 18.3 % (11.8-14.3); White Blood Cell 4.8 10^3/uL (4.4-10.8)
[2024-08-05 11:59] LABS: Band Neutrophils % (manual) 0; Basophils % (manual) 0 (0.0-2.0); Blast Cells 0; Metamyelocytes % 0; Myelocytes % 0; Promyelocytes % 0; Reactive Lymphocytes 0
[2024-08-05 12:04] LABS: Alanine Aminotransferase 11 U/L (7-40); Alkaline Phosphatase 90 U/L (46-116); Anion Gap 6 (5-15); Aspartate Aminotransferase 16 U/L (13-40); BUN/Creatinine Ratio 12.7 (10.0-20.0); Blood Urea Nitrogen 13 mg/dL (9-23); Calcium 9.5 mg/dL (8.7-10.4); Carbon Dioxide 29 mmol/L (20-31); Chloride 107 mmol/L (98-107); Glucose 119 mg/dL (74-106); Magnesium 2.1 mg/dL (1.6-2.6); Potassium 4.2 mmol/L (3.5-5.1); Sodium 142 mmol/L (136-145)
--- NOTE | 2024-08-05 12:04 | ED.PDOC ---
HPI Comments 84-year-old female with past medical history of hypertension and atrial fibrillation presented with complaint of chest pain. Her pain woke her up from the morning, had around 1100 hours, which was substernal, pressure and cramping life, slightly relieved by rest, did not take any medication to relief, not related with activity, not increased on deep inspiration. She mentioned neck pain, that is generalized, but does not mentioned that it is related to chest pain. She mentioned she has been having chest pain on and off for last 10 days, but this time it was severe and woke her from sleep. She also has episodes of epistaxis for last 10 days, last one was yesterday. She has been having symptoms of nasal congestion, cough and sputum for last 10 days, was prescribed Augmentin by Dr. Hernandez but did not relieve her symptoms. She Also mentioned associated diarrhea that started after antibiotics. And also complaints of dizziness. Currently she is not mentioning any chest pain. She did not take any medications today. 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 She denied any complaints of nausea, vomiting, abdominal pain, acid reflux, headache, any motor deficits, any sensory deficit, slurred speech, generalized weakness, fever, chills, shortness of breath, orthopnea Past medical history Atrial fibrillation, hypertension Past surgical history denied Medication history Amiodarone, atorvastatin, betamethasone cream, Eliquis, celecoxib, fish oil, furosemide Social history Quit smoking 20 years ago, smoked for 40 years for that No alcohol intake Occasional marijuana intake Denied any drug intake Family history Not significant Allergic history No known allergies Review of system As described in HPI Examination General Appearance: Alert, Oriented X3, Cooperative, No acute distress Respiratory: Clear to auscultation, Normal air movement Cardiovascular: Regular rate, Normal S1, Normal S2 Abdominal: Soft, nondistended Extremities: No cyanosis, No edema, Normal pulses, No tenderness/swelling Skin: No rashes, No breakdown Neuro: Normal speech and tone Attestation note: Dr. Arteaga: I was the supervising attending for this ED encounter. Please see the resident's notes. I was available for questions and consultations. Differential diagnosis: Ddx include but not limitied to gastritis, musculoskeletal pain, radiculopathy, atypical chest pain, dissection, aneurysm, ACS, unstable angina, hiatal hernia, GERD, anxiety, costochondritis, PE, pneumothroax, neoplasm, cardiac ischemia, drug abuse, anemia. MDM: Patient presented with the above HPI.---cardiac--workup was initiated. patient was found with the above mentioned diagnosis. Patient was given: Aspirin Patient ED course and VS have been stabilized. Patient has been reassessed in the ED and remained in a stable condition. Pertinent incidental findings were discussed with the patient and/or family. Patient/family voices understanding and is agreeable with plan. Patient has been observed in the ED adequate length of time to insure improvement/stability. patient was admitted to the medicine team for further evaluation and treatment of their presentation. All the reports of any imaging studies that were ordered by myself were reviewed by myself. Chief Complaint: Chest Pain Time Seen by MD: 11:26 Primary Care Provider: SAMEER Reviewed Notes: Nurses Notes, Medications, Allergies Allergies: Coded Allergies: NO KNOWN ALLERGIES (Unverified , 07/10/10) Home Meds Active Scripts Diltiazem HCl (Diltiazem Hydrochloride E) 180 Mg Cap, 180 MG PO DAILY for 30 Days, #30 CAP 11 Refills Prov:PRASANTH VELA DO 09/10/23 Digoxin (Digoxin) 125 Mcg Tab, 125 MCG PO DAILY for 30 Days, #30 TAB 2 Refills Prov:KASHMIR SHAW MD 09/09/23 Reported Medications Ketoconazole (Ketoconazole) 2 % Sha, 1 APPLIC EX UD for 30 Days, #120 APPLY TO THE AFFECTED AREA FOR 5 MINUTES THEN WASH OFF. USE 3 TIMES WEEKLY. 08/07/24 Clobetasol Propionate (Clobetasol Propionate) 0.05 % Cre, 1 APPLIC TOP BID for 30 Days, #50 08/07/24 Atorvastatin Calcium (Lipitor) 20 Mg Tab, 1 TAB PO DAILY for 90 Days, #90 08/07/24 Benzonatate (Benzonatate) 200 Mg Cap, 1 CAP PO TID PRN for COUGH for 7 Days, #21 08/07/24 Montelukast Sodium (MONTELUKAST SODIUM) 10 Mg Tab, 1 TAB PO DAILY for 90 Days, #90 08/07/24 Docusate Sodium (Docusate Sodium) 100 Mg Cap, 1 CAP PO BID for 30 Days, #60 08/07/24 Amiodarone Hcl (AMIODARONE HCL) 100 Mg Tab, 1 TAB PO DAILY for 30 Days, #30 08/07/24 Sotalol Hcl (Sotalol Hcl) 80 Mg Tab, 1 TAB PO TID for 90 Days, #270 08/07/24 Celecoxib (Celecoxib) 200 Mg Cap, 1 CAP PO DAILY for 90 Days, #90 02/20/24 Furosemide (Furosemide) 20 Mg Tab, 1 TAB PO BID for 90 Days, #180 02/20/24 Betamethasone Dipropionate (Betamethasone Dipropionat) 0.05 % Oin, 1 APPLIC TOP BID for 20 Days, #45 APPLY TO AFFECTED AREA TWO TIMES A DAY FOR 14 DAYS, THEN 2 WEEKS OFF. 02/20/24 Sildenafil Citrate (Sildenafil Citrate) 20 Mg Tab, 1 TAB PO BID for 90 Days, #180 02/20/24 Acetaminophen (Acetaminophen) 325 Mg Tab, 325 MG PO Q4HP PRN for MILD PAIN for 30 Days, MG 0 Refills 01/22/21 Baclofen (Baclofen) 10 Mg Tab, 10 MG PO BID for 30 Days, MG 01/22/21 Potassium Chloride (K-Tabs) 10 Meq Tab, 1 TAB PO BID for 90 Days, #180 04/16/20 Apixaban Base (ELIQUIS) 5 Mg Tab, 1 TAB PO BID for 90 Days, #180 10/24/18 Gabapentin (Gabapentin) 300 Mg Cap, 1 CAP PO DAILY 10/24/18 Discontinued Reported Medications Amoxicillin & Pot Clavulanate (AUGMENTIN TABLET) 875 Mg Tb, 1 TAB PO BID for 10 Days, #20 08/07/24 Mode of Arrival: Ambulatory Was a procedure done? Was a procedure done?: No CP Differential Dx Differential Diagnosis: Electrolyte Disorder, Heart Failure, AL Differential Diagnosis: HTN Essential Differential Diagnosis: Angina, Aortic dissection, Chest Wall Pain, Costochondritis, Esophageal reflux/spasm, Gastritis, Myocardial Infarction, Pe ricarditis, Pneumonia X-Ray, Labs, Meds, VS Vital Signs Date Time Temp Pulse Resp B/P (MAP) Pulse Ox O2 Delivery O2 Flow Rate FiO2 08/05/24 12:22 98.0 88 16 161/59 (93) 95 98.0 08/05/24 12:22 88 18 95 Room Air* 0 21 08/05/24 12:11 58 08/05/24 11:25 98.4 83 18 155/85 (108) 94 08/05/24 11:18 98 Lab Test 08/05/24 12:23 08/05/24 11:30 Range/Units Magnesium Level 2.1 2.1 1.6-2.6 mg/dL Troponin I High Sensitivity 15 15 </=34 ng/L Thyroid Stimulating Hormone (TSH) 3.07 0.55-4.78 uIU/mL White Blood Count 4.8 4.4-10.8 10^3/uL Red Blood Count 4.34 4.0-5.20 10^6/uL Hemoglobin 12.8 12.2-16.2 g/dL Hematocrit 40.0 36.0-46.0 % Mean Corpuscular Volume 92.3 80.0-100.0 fL Mean Corpuscular Hemoglobin 29.5 28.0-32.0 pg Mean Corpuscular Hemoglobin Concent 32.0 32.0-36.0 g/dL Red Cell Distribution Width 18.3 H 11.8-14.3 % Platelet Count 183 140-450 10^3/uL Mean Platelet Volume 8.6 6.9-10.8 fL Neutrophils (%) (Auto) 37.0-80.0 % Lymphocytes (%) (Auto) 10.0-50.0 % Monocytes (%) (Auto) 0.0-12.0 % Basophils (%) (Auto) 0.0-2.0 % Neutrophils # (Auto) 1.6-8.6 10 ^3/uL Lymphocytes # (Auto) 0.4-5.4 10 ^3/uL Monocytes # (Auto) 0-1.3 10 ^3/uL Differential Total Cells Counted 100.0 100 Neutrophils % (Manual) 49 37.0-80.0 Band Neutrophils % (Manual) 0 Lymphocytes % (Manual) 34 10.0-50.0 Monocytes % (Manual) 13 H 0-12 Eosinophils % (Manual) 4 0-7 Basophils % (Manual) 0 0.0-2.0 Metamyelocytes % (manual) 0 Myelocytes % (Manual) 0 Promyelocytes % (Manual) 0 Blast Cells % (Manual) 0 Reactive Lymphocytes 0 Platelet Estimate Adequate Red Blood Cell Morphology Normal Prothrombin Time 11.3 9.3-11.8 sec Prothrombin Time INR 1.07 0.9-1.15 Activated Partial Thromboplast Time 28.8 24.5-34.5 SEC Sodium Level 142 136-145 mmol/L Potassium Level 4.2 3.5-5.1 mmol/L Chloride Level 107 98-107 mmol/L Carbon Dioxide Level 29 20-31 mmol/L Anion Gap 6 5-15 Blood Urea Nitrogen 13 9-23 mg/dL Creatinine 1.02 0.550-1.02 mg/dL Glomerular Filtration Rate Calc 55 >90 mL/min BUN/Creatinine Ratio 12.7 10.0-20.0 Serum Glucose 119 H 74-106 mg/dL Calcium Level 9.5 8.7-10.4 mg/dL Total Bilirubin 0.7 0.2-1.0 mg/dL Aspartate Amino Transferase (AST) 16 13-40 U/L Alanine Aminotransferase (ALT) 11 7-40 U/L Alkaline Phosphatase 90 46-116 U/L B-Type Natriuretic Peptide 45.95 0-100 pg/mL Total Protein 7.4 5.7-8.2 g/dL Albumin 4.0 3.2-4.8 g/dL [place] [id number] Ph: [phone] DIAGNOSTIC IMAGING Diagnostic Imaging Report : [id number] Signed PATIENT: LIZETTE PATEL ACCT: [id number] UNIT: [id number] : 1940 LOC: [facility] ROOM / BED: [facility] / A AGE / SEX: 84 / F ADM STATUS: ADM IN SERVICE 1134 ORDERING PHYSICIAN: VERNA ARTEAGA DO PROCEDURE(s): CXRP - CHEST PORTABLE REASON: CP ORDER NUMBER(s): [id number], ACCESSION NUMBER(s): [id number] AP portable chest REASON FOR EXAM: CP INDICATION: CP FINDINGS: Heart size is enlarged. Aorta is tortuous. There are no infiltrates or effusions. Degenerative changes in the thoracic spine. IMPRESSION: 1. Cardiomegaly. No acute cardiopulmonary pathology. ATED BY: IRAM HOFFMANN MD DICTATED DATE/TIME: 08/05/241201 SIGNED BY: IRAM HOFFMANN MD SIGNED DATE/TIME: 08/05/241201 CC: Time of 1ST Reevaluation: 12:03 Reevaluation 1ST: Unchanged Patient Education/Counseling: Diagnosis, Treatment Family Education/Counseling: No Family Present Comments MDM Patient presented with the chest pain, dizziness, workup was initiated. Patient was given: Aspirin 325mg once Patient ED course and VS have been stabilized. Patient has been reassessed in the ED and remained in a stable condition. Pertinent incidental findings were discussed with the patient and/or family. Patient/family voices understanding and is agreeable with plan. Patient has been observed in the ED adequate length of time to insure improvement/stability. patient was admitted to the medicine team for further evaluation and treatment of their presentation. All the reports of any imaging studies that were ordered by myself were reviewed by myself. Departure 1 Departure Time of Disposition: 12:03 Impression: Primary Impression: Chest pain Additional Impressions: Atrial fibrillation Hyperlipidemia Dizziness Disposition: 09 ADMITTED INPATIENT Admit to: [facility] Condition: Guarded Discharged With: Self Critical Care Note Critical Care Time?: No Heart Score Heart Score: Heart Score Response (Comments) Value History Moderate Suspicious 1 EKG Normal 0 Age >65 2 Risk Factors >3 or Hx ASHD 2 Troponin Normal limit 0 Total 5 SHAYNA LAU RESIDENT Aug 05, 2024 12:04 VERNA ARTEAGA DO Aug 14, 2024 02:55
[2024-08-05 12:05] LABS: Bilirubin, Total 0.7 mg/dL (0.2-1.0); Total Protein 7.4 g/dL (5.7-8.2)
--- NOTE | 2024-08-05 12:05 | DVH ---
AP portable chest REASON FOR EXAM: CP INDICATION: CP FINDINGS: Heart size is enlarged. Aorta is tortuous. There are no infiltrates or effusions. Degenera tive changes in the thoracic spine. IMPRESSION: 1. Cardiomegaly. No acute cardiopulmonary pathology.
[2024-08-05 12:12] LABS: INR 1.07 (0.9-1.15); Partial Thromboplastin Time 28.8 SEC (24.5-34.5); Prothrombin Time 11.3 sec (9.3-11.8)
[2024-08-05 12:15] LABS: Eosinophils % (manual) 4 (0-7); Lymphocytes % (manual) 34 (10.0-50.0); Monocytes % (manual) 13 (0-12); Platelet Estimate Adequate
[2024-08-05 12:16] LABS: RBC Morphology Normal
[2024-08-05 12:22] VITALS: PULSE 88; RESP 18; O2SAT 95
[2024-08-05] MEDS: ASPirin 325 MG TAB PO ONE (12:23)
--- NOTE | 2024-08-05 12:31 | DVHHP2 ---
History of Present Illness Reason for Visit: Chest pain History of Present Illness 82-year-old female with a past medical history of hypertension AFib comes to the ED with complaints of on and off intermittent chest pain for the past 10 days patient states that the pain was severe enough to wake her up from her sleep while she was trying to rest mid day today the pain proceeded to become worse patient does have a stated history again of hypertension and AFib which are rate controlled and takes medications and follows up on an outpatient basis patient states that her PCP had recently given her antibiotics for the treatment of outpatient walking pneumonia which she took Augmentin for about 10 days after co mpleting the Augmentin she did not note any acute changes at all other than noting that she had chest pain but denies having any type of allergies to any known medications at this point in time patient was recommended by the ED to be admitted for further evaluation and management Cardiovascular: AFIB, HTN Review of Systems Constitutional: Yes: Weakness; No: Fever, Chills, Sweats, Malaise, Other Eyes: No: Pain, Vision change, Conjunctivae inflammation, Eyelid inflammation, Other, Redness ENT: No: Ear pain, Ear discharge, Nose pain, Nose discharge, Nose congestion, Mouth pain, Mouth swelling, Throat pain, Throat swelling, Other Respiratory: No: Cough, Dry, Shortness of breath, SOB with excertion, Wheezing, Hemoptysis, Pleuritic Pain, Sputum, Wheezing, Other Cardiovascular: Chest Pain, Palpitations; No: Orthopnea, Paroxysmal Noc. Dyspnea, Edema, Lt Headedness, Other Gastrointestinal: No: Nausea, Vomiting, Abdominal Pain, Diarrhea, Constipation, Melena, Hematochezia, Other Musculoskeletal: No: other, neck pain, shoulder pain, arm pain, back pain, hand pain, leg pain, foot pain Skin: No: Rash, Lesions, Jaundice, Bruising, Other Neurological: No: Weakness, Numbness, Incoordination, Change in speech, Confusion, Seizures, Other Allergies: Coded Allergies: NO KNOWN ALLERGIES (Unverified , 08/05/24) Exam Vital Signs Vital Signs Date Time Temp Pulse Resp B/P (MAP) Pulse Ox O2 Delivery O2 Flow Rate FiO2 08/05/24 12:22 98.0 88 16 161/59 (93) 95 98.0 08/05/24 12:22 Room Air* 0 21 General Appearance: Alert, Oriented X3, Cooperative, mild distress HEENT: Atraumatic, PERRLA, EOMI Respiratory: Clear to auscultation, Normal air movement Cardiovascular: Regular rate, Normal S1 Abdominal: Normal bowel sounds Extremities: No clubbing, No cyanosis Skin: No rashes, No breakdown Neuro: Normal gait, Normal speech Psych/Mental Status: Mood NL Labs/Xrays Labs Test 08/05/24 11:30 Range/Units White Blood Count 4.8 4.4-10.8 10^3/uL Red Blood Count 4.34 4.0-5.20 10^6/uL Hemoglobin 12.8 12.2-16.2 g/dL Hematocrit 40.0 36.0-46.0 % Mean Corpuscular Volume 92.3 80.0-100.0 fL Mean Corpuscular Hemoglobin 29.5 28.0-32.0 pg Mean Corpuscular Hemoglobin Concent 32.0 32.0-36.0 g/dL Red Cell Distribution Width 18.3 H 11.8-14.3 % Platelet Count 183 140-450 10^3/uL Mean Platelet Volume 8.6 6.9-10.8 fL Neutrophils (%) (Auto) 37.0-80.0 % Lymphocytes (%) (Auto) 10.0-50.0 % Monocytes (%) (Auto) 0.0-12.0 % Basophils (%) (Auto) 0.0-2.0 % Neutrophils # (Auto) 1.6-8.6 10 ^3/uL Lymphocytes # (Auto) 0.4-5.4 10 ^3/uL Monocytes # (Auto) 0-1.3 10 ^3/uL Differential Total Cells Counted 100.0 100 Neutrophils % (Manual) 49 37.0-80.0 Band Neutrophils % (Manual) 0 Lymphocytes % (Manual) 34 10.0-50.0 Monocytes % (Manual) 13 H 0-12 Eosinophils % (Manual) 4 0-7 Basophils % (Manual) 0 0.0-2.0 Metamyelocytes % (manual) 0 Myelocytes % (Manual) 0 Promyelocytes % (Manual) 0 Blast Cells % (Manual) 0 Reactive Lymphocytes 0 Platelet Estimate Adequate Red Blood Cell Morphology Normal Prothrombin Time 11.3 9.3-11.8 sec Prothrombin Time INR 1.07 0.9-1.15 Activated Partial Thromboplast Time 28.8 24.5-34.5 SEC Sodium Level 142 136-145 mmol/L Potassium Level 4.2 3.5-5.1 mmol/L Chloride Level 107 98-107 mmol/L Carbon Dioxide Level 29 20-31 mmol/L Anion Gap 6 5-15 Blood Urea Nitrogen 13 9-23 mg/dL Creatinine 1.02 0.550-1.02 mg/dL Glomerular Filtration Rate Calc 55 >90 mL/min BUN/Creatinine Ratio 12.7 10.0-20.0 Serum Glucose 119 H 74-106 mg/dL Calcium Level 9.5 8.7-10.4 mg/dL Magnesium Level 2.1 1.6-2.6 mg/dL Total Bilirubin 0.7 0.2-1.0 mg/dL Aspartate Amino Transferase (AST) 16 13-40 U/L Alanine Aminotransferase (ALT) 11 7-40 U/L Alkaline Phosphatase 90 46-116 U/L Troponin I High Sensitivity 15 </=34 ng/L B-Type Natriuretic Peptide 45.95 0-100 pg/mL Total Protein 7.4 5.7-8.2 g/dL Albumin 4.0 3.2-4.8 g/dL Assessment/Plan Assessment/Plan To med surge Chest pain With a history of hypertension and AFib Chest pain protocol and evaluation Troponins x3 for evaluation current sharp negative No history of stated congestive heart failure BNP was completed no acute signs of fluid overload at this time Patient's chest x-ray was also completed no acute abnormalities noted at this point in time Patient had labs completed also to rule out acute signs of infection Admit for chest pain evaluation and acute coronary syndrome rule out Continue patient's home medications for the management of AFib and hypertension monitor BP And monitor for acute signs of palpations or arrhythmias as needed Plan discussed with: Patient Date of Service: Aug 05, 2024 Billing Provider: DUKE MORAN MD Common Visit Codes: 12608-[id number] INP/OBS CARE (HIGH) DUKE MORAN MD Aug 05, 2024 12:31
[2024-08-05] MEDS ORDERED: ONDANSETRON HCL 4 MG/2 ML VIAL IV PRN (12:45)
[2024-08-05] MEDS ORDERED: NITROGLYCERIN 0.4 MG SL TAB SL PRN (12:45)
[2024-08-05] MEDS: MAALOX PLUS or MAALOX 30 ML PO ONE (14:46)
[2024-08-05] MEDS: hydrALAZINE HCL 10 MG TAB PO SCH (14:50)
[2024-08-05] MEDS: InsuLIN REG 1unit/0.01ml Soln (100units/ml) SC SCH (16:00)
[2024-08-05] MEDS: ACCU-CHEK COMFORT CURVE STRIP VI SCH (16:19)
[2024-08-05 17:43] VITALS: PULSE 66; RESP 17; O2SAT 97
[2024-08-05] MEDS: DEXTROSE (50%) 50ML SYRG IV PRN (18:23)
[2024-08-05 19:46] VITALS: PULSE 81; RESP 21
[2024-08-05 21:23] VITALS: BP_SYST 133; BP_DIAS 70; BP_DIAS 90; PULSE 56; RESP 17; TEMP 97.5; O2SAT 94
[2024-08-05 21:27] LABS: Urine Bacteria None Seen /hpf (None Seen)
[2024-08-05 21:37] LABS: Urine Blood Negative /uL (Negative); Urine Clarity Clear (Clear); Urine Color Light-Yellow (Yellow); Urine Hyaline Cast FEW /lpf (0 - 2); Urine Protein, UAD Negative (Negative); Urine Specific Gravity 1.015 (1.001-1.035); Urine Urobilinogen Normal (Negative); Urine WBC 1 /hpf (0 - 5); Urine pH 5.5 (5.0-9.0)
[2024-08-05 22:00] VITALS: BP 130/70; PULSE 53; RESP 16; TEMP 97.1; O2SAT 94
[2024-08-05] MEDS: ATORVASTATIN 20 MG TAB PO SCH (22:08)
[2024-08-05] MEDS: CARVEDILOL 3.125 MG TAB PO SCH (22:09)
[2024-08-05] MEDS: ACETAMINOPHEN 325 MG TAB PO PRN (23:35)
[2024-08-06] VITALS (7 sets, daily range): BP systolic 101–124; BP diastolic 51–75; PULSE 50–72; RESP 16–20; TEMP 97.5–98.8; O2SAT 94–100
[2024-08-06 05:35] LABS: Hematocrit 35.5 % (36.0-46.0); Hemoglobin 11.9 g/dL (12.2-16.2); Mean Corpuscular Hemoglobin 30.6 pg (28.0-32.0); Mean Corpuscular Hgb Conc. 33.6 g/dL (32.0-36.0); Mean Corpuscular Volume 91.1 fL (80.0-100.0); Platelet Count (auto) 144 10^3/uL (140-450); Red Blood Cells 3.89 10^6/uL (4.0-5.20); Red Cell Distribution Width 17.5 % (11.8-14.3); White Blood Cell 5.1 10^3/uL (4.4-10.8)
[2024-08-06 05:51] LABS: Basophils % (manual) 0 (0.0-2.0); Blast Cells 0; Metamyelocytes % 0; Myelocytes % 0; Promyelocytes % 0; Reactive Lymphocytes 0
[2024-08-06 05:52] LABS: Anion Gap 6 (5-15); Carbon Dioxide 27 mmol/L (20-31); Chloride 108 mmol/L (98-107); Potassium 4.2 mmol/L (3.5-5.1); Sodium 141 mmol/L (136-145)
[2024-08-06 05:53] LABS: Calcium 8.8 mg/dL (8.7-10.4)
[2024-08-06 05:58] LABS: BUN/Creatinine Ratio 14.4 (10.0-20.0); Blood Urea Nitrogen 13 mg/dL (9-23); Glucose 86 mg/dL (74-106)
--- NOTE | 2024-08-06 07:20 | ECG ---
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
--- NOTE | 2024-08-06 07:20 | ECG ---
[facility] Test Date: 2024-08-05 Test Time: 12:11:22 Pat Name: LIZETTE PATEL Department: er Room: 0239 A Gender: F Optical Assistant: dr ANN: 1940 Requested By: VERNA ARTEAGA Order Number: [id number] Reading MD: Jaylon Partida Measurements Intervals [place] Rate: 58 P: 83 AL: 201 QRS: -74 QRSD: 82 T: 96 QT: 435 QTc: 428 Interpretive Statements Sinus rhythm Multiple premature complexes, vent & supraven Left anterior fascicular block Nonspecific T abnormalities, lateral leads Electronically Signed On 08-06-2024 8:27:41 PST by Jaylon Partida Please click the below link to view image of tracing.
[2024-08-06 08:45] LABS: Eosinophils % (manual) 7 (0-7); Lymphocytes % (manual) 24 (10.0-50.0); Monocytes % (manual) 22 (0-12)
[2024-08-06 08:47] LABS: Platelet Estimate Decreased
[2024-08-06 08:50] LABS: Band Neutrophils % (manual) 0
[2024-08-06] MEDS: ASPirin 81 mg TAB PO SCH (09:02)
[2024-08-06] MEDS: DOCUSATE SOD 100 MG CAP PO SCH (09:03)
[2024-08-06] MEDS: LISINOPRIL 5 MG TAB PO SCH (09:03)
[2024-08-06] MEDS: CLOPIDOGREL BISULFATE 75 MG TAB PO SCH (09:03)
--- NOTE | 2024-08-06 10:25 | DVHINCON2 ---
Date of service: Aug 06, 2024 History of Present Illness HPI Patient is a 84-year-old female who presented with chest discomfort. Chest discomfort started around 10 days ago accompanied with cough/co ngestion/occasional nosebleed. She has been on antibiotics (Augmentin) for URI. She did have occasional diarrhea also. She is known to our practice from outside. Cardiology is involved for cardiac aspects of care. She does have a separate medical record: [id number] Home Meds Active Scripts Azithromycin (Zithromax) 250 Mg Tab, 250 MG PO DAILY for 5 Days, #5 TAB Prov:KASHMIR SHAW MD 02/22/24 Diltiazem HCl (Diltiazem Hydrochloride E) 180 Mg Cap, 180 MG PO DAILY for 30 Days, #30 CAP 11 Refills Prov:PRASANTH VELA DO 09/10/23 Atorvastatin Calcium (ATORVASTATIN CALCIUM) 20 Mg Tab, 20 MG PO HS for 30 Days, #30 TAB 11 Refills Prov:PRASANTH VELA DO 09/10/23 Digoxin (Digoxin) 125 Mcg Tab, 125 MCG PO DAILY for 30 Days, #30 TAB 2 Refills Prov:KASHMIR SHAW MD 09/09/23 Sotalol Hcl (Betapace) 80 Mg Tab, 80 MG PO TID for 30 Days, #90 TAB 2 Refills Prov:KASHMIR SHAW MD 09/09/23 Reported Medications Hydrocortone (Hydrocortisone 1%) 1 Applic Ap, 1 APPLIC TOP BID Apply externally to the affected area twice daily. 02/22/24 Celecoxib (Celecoxib) 200 Mg Cap, 1 CAP PO DAILY 02/20/24 Sotalol Hcl (Sotalol Hcl) 80 Mg Tab, TAB PO 02/20/24 Furosemide (Furosemide) 20 Mg Tab, 1 TAB PO BID 02/20/24 Tacrolimus (Tacrolimus) 0.1 % Oin, TOP BID Apply topically to the affected area twice daily. 02/20/24 Betamethasone Dipropionate (Betamethasone Dipropionat) 0.05 % Oin, TOP 02/20/24 Sildenafil Citrate (Sildenafil Citrate) 20 Mg Tab, 2 TAB PO DAILY 02/20/24 Acetaminophen (Acetaminophen) 325 Mg Tab, 325 MG PO Q4HP PRN for MILD PAIN for 30 Days, MG 0 Refills 01/22/21 Baclofen (Baclofen) 10 Mg Tab, 10 MG PO BID for 30 Days, MG 01/22/21 Potassium Chloride (K-Tabs) 10 Meq Tab, 1 TAB PO BID 04/16/20 Apixaban Base (ELIQUIS) 5 Mg Tab, 5 MG PO BID, TAB 10/24/18 Gabapentin (Gabapentin) 300 Mg Cap, 1 CAP PO DAILY 10/24/18 Past Medical History Others PMH includes hypertension, obesity, hyperlipidemia, paroxysmal a-fib (on Eliquis/digoxin)), peripheral neuropathy, Emphysema, Pulmonary hypertension, diverticulosis, degenerative disc disease of the cervical spine, GERD, valvular heart disease, moderate to severe TR, diverticulosis, kyphosis, spondylosis, hiatal hernia and liver cyst. Had hysterectomy years ago. Quit smoking years ago. No drug/alcohol abuse. Patient Family History: Patient reports no known family medical history. Smoker: No Hx (Negative) Alocohol: None Review of Systems Constitutional: Fever, Weakness Ears, Nose, & Throat: Nose discharge, Nose congestion Pulmonary/Respiratory: Dyspnea, Cough Cardiovascular: Chest Pain, Palpitations Gastrointestinal: Nausea All Other Systems 14 point review of system was performed. Relevant findings as per above and as per HPI. Otherwise negative H&P Exam Vital Signs Vital Signs Date Time Temp Pulse Resp B/P (MAP) Pulse Ox O2 Delivery O2 Flow Rate FiO2 08/06/24 09:03 118/59 08/06/24 09:00 50 08/06/24 08:59 97.8 18 96 97.8 08/06/24 08:00 Nasal Cannula* 3 32 General Appeara: Well developed Head Exam: Normal inspection Eye Exam: bilateral eye PERRL Pulmonary/Respiratory: Rhonci Cardiovascular/Chest: Normal inspection, Normal Rhythm Peripheral Pulses: 2+ carotid (R), 2+ carotid (L), 2+ femoral (R), 2+ femoral (L), 2+ dorsalis pedis (R), 2+ dorsalis pedis (L), 2+ Radial (R), 2+ Radial (L) Abdominal Exam: Normal bowel sounds, Soft, No hepatospenomegaly Neuro/Mental St: Alert, Oriented Appearance: Appropriate appearance Eye contact/ Speech: Cooperative Labs/Xrays Labs Test 08/06/24 08:07 08/06/24 05:11 08/05/24 20:30 08/05/24 14:38 Range/Units POC Glucose 81 70-106 mg/dl White Blood Count 5.1 4.4-10.8 10^3/uL Red Blood Count 3.89 L 4.0-5.20 10^6/uL Hemoglobin 11.9 L 12.2-16.2 g/dL Hematocrit 35.5 #L 36.0-46.0 % Mean Corpuscular Volume 91.1 80.0-100.0 fL Mean Corpuscular Hemoglobin 30.6 28.0-32.0 pg Mean Corpuscular Hemoglobin Concent 33.6 32.0-36.0 g/dL Red Cell Distribution Width 17.5 H 11.8-14.3 % Platelet Count 144 140-450 10^3/uL Mean Platelet Volume 8.6 6.9-10.8 fL Neutrophils (%) (Auto) 37.0-80.0 % Lymphocytes (%) (Auto) 10.0-50.0 % Monocytes (%) (Auto) 0.0-12.0 % Basophils (%) (Auto) 0.0-2.0 % Neutrophils # (Auto) 1.6-8.6 10 ^3/uL Lymphocytes # (Auto) 0.4-5.4 10 ^3/uL Monocytes # (Auto) 0-1.3 10 ^3/uL Differential Total Cells Counted 100.0 100 Neutrophils % (Manual) 47 37.0-80.0 Band Neutrophils % (Manual) 0 Lymphocytes % (Manual) 24 10.0-50.0 Monocytes % (Manual) 22 H 0-12 Eosinophils % (Manual) 7 0-7 Basophils % (Manual) 0 0.0-2.0 Metamyelocytes % (manual) 0 Myelocytes % (Manual) 0 Promyelocytes % (Manual) 0 Blast Cells % (Manual) 0 Reactive Lymphocytes 0 Platelet Estimate Decreased Sodium Level 141 136-145 mmol/L Potassium Level 4.2 3.5-5.1 mmol/L Chloride Level 108 H 98-107 mmol/L Carbon Dioxide Level 27 20-31 mmol/L Anion Gap 6 5-15 Blood Urea Nitrogen 13 9-23 mg/dL Creatinine 0.90 0.550-1.02 mg/dL Glomerular Filtration Rate Calc 64 >90 mL/min BUN/Creatinine Ratio 14.4 10.0-20.0 Serum Glucose 86 74-106 mg/dL Calcium Level 8.8 8.7-10.4 mg/dL Urine Color Light-yellow Yellow Urine Clarity Clear Clear Urine pH 5.5 5.0-9.0 Urine Specific [place] 1.015 1.001-1.035 Urine Protein Negative Negative Urine Ketones Negative Negative Urine Blood Negative Negative /uL Urine Nitrite Negative Negative Urine Bilirubin Negative Negative Urine Urobilinogen Normal Negative mg/dL Urine Leukocyte Esterase Negative Negative /uL Urine RBC 3 0 - 4 /hpf Urine WBC 1 0 - 5 /hpf Urine Squamous Epithelial Cells Few <5 /hpf Urine Bacteria None seen None Seen /hpf Urine Hyaline Casts Few 0 - 2 /lpf Urine Glucose 1+ H Normal mg/dL Troponin I High Sensitivity 13 </=34 ng/L Test 08/05/24 12:23 08/05/24 11:30 Range/Units Magnesium Level 2.1 1.6-2.6 mg/dL Thyroid Stimulating Hormone (TSH) 3.07 0.55-4.78 uIU/mL Red Blood Cell Morphology Normal Prothrombin Time 11.3 9.3-11.8 sec Prothrombin Time INR 1.07 0.9-1.15 Activated Partial Thromboplast Time 28.8 24.5-34.5 SEC Total Bilirubin 0.7 0.2-1.0 mg/dL Aspartate Amino Transferase (AST) 16 13-40 U/L Alanine Aminotransferase (ALT) 11 7-40 U/L Alkaline Phosphatase 90 46-116 U/L B-Type Natriuretic Peptide 45.95 0-100 pg/mL Total Protein 7.4 5.7-8.2 g/dL Albumin 4.0 3.2-4.8 g/dL Assessment/Plan Plan Patient is a 84-year-old female who presented with chest discomfort. Chest discomfort started around 10 days ago accompanied with cough/congestion/occasional nosebleed. She has been on antibiotics (Augmentin) for URI. She did have occasional diarrhea also. She is known to our practice from outside. Cardiology is involved for cardiac aspects of care. No JVD. Mucosa is pink and wet. No carotid bruit. Chest: Scattered rhonchi. No rales. Cardiac: Regular, no thrill/gallop. Systolic murmur 2/6 in apex is heard. Abdomen is soft. Extremities do not reveal edema. PMH includes hypertension, obesity, hyperlipidemia, paroxysmal a-fib (on Eliquis/digoxin)), peripheral neuropathy, Emphysema, Pulmonary hypertension, diverticulosis, degenerative disc disease of the cervical spine, GERD, valvular heart disease, moderate to severe TR, diverticulosis, kyphosis, spondylosis, hiatal hernia and liver cyst. Had hysterectomy years ago. Quit smoking years ago. No drug/alcohol abuse. Had Cardiac cath ([facility]) in 2009: normal coronaries. Had Cardiac Cath ([facility]) in 2019: Normal coronaries and pulmonary hypertension. Echo (office) of : EF of 65 to 70%, mild to moderate TR, moderate pulmonary hypertension Echocardiogram in 2020 revealed ejection fraction of 71%, left ventricle hypertrophy, mild TR, trace MR and right ventricular systolic pressure of 69 mmHg Echocardiogram of March 01, 2022 (performed the office) revealed LVH, LVEF of 60 to 65%, pseudo normal LV filling, moderate right atrial enlargement, aortic scl erosis, moderate to severe TR and right ventricular systolic pressure of 70 mmHg Echocardiogram of September 07, 2023 had revealed mild concentric left ventricular hypertrophy, ejection fraction of 60%, moderate biatrial enlargement, moderate TR and right ventricular systolic pressure of 43 mm Hg Echocardiogram of February 22, 2024 revealed ejection fraction 55%, biatrial enlargement, aortic sclerosis with no stenosis, mitral annular calcification, trace MR, mild TR and right ventricular systolic pressure 41 mm Hg Nuclear stress test of April 23, 2024 (performed in the office) revealed normal perfusion, ejection fraction of 77% WBC: 4.8-4.1 Hemoglobin: 12 0.8-11.9 Creatinine: 1.02-0.90 Potassium: 4.2-4.2 Troponin (high sensitive): 15-15-13 BNP: 45.95 TSH: 3.07 Chest x-ray revealed: 1. Cardiomegaly. No acute cardiopulmonary pathology. EKG revealed sinus rhythm Patient is a 84-year-old female who presented with 1 week of chest discomfort/cough/congestion/nosebleed. Presentation is not in favor of acute coronary syndrome. URI is considered. It is of note that the patient does have history of atrial fibrillation/flutter as outpatient and usually is on Eliquis. Has been having repeated nosebleed. We can decrease the dose of Eliquis at this point recognizing the bleedings. URI Diarrhea Atrial fibrillation/flutter, history of History of pulmonary hypertension Hyperlipidemia Hypertension Cardiac suggestion for management: Manage in tele Follow-up electrolytes and kidney function test and correct abnormalities. Keep potassium above 4 magnesium above 2 Full anticoagulation (on Eliquis): You can have the dose of 2.[address] of the chest without contrast Evaluation and management of URI as per primary team No ischemic workup indicated Thank you for consultation Further evaluation and management depends on the above and clinical course A total of 75 minutes was spent reviewing the patient record, examining the patient, making a diagnostic and therapeutic plan, discussing this plan with medical personnel, following up on diagnostic studies and following the patient for clinical stability excluding any and all procedures. At least 50% of this time was spent in direct, [id number] contact. Thank you for allowing me to participate in this patient's care. Further recommendations will depend on patient's clinical course. Please do not hesitate to contact me if you have any questions or concerns. This medical document was created using electronic medical record system with [employer] computerized dictation system. Although this document has been carefully reviewed, there may still be some phonetic and typographical errors. These areas are purely typographical due to the imperfection of the software programs, and do not reflect any compromise in the patient's medical care. Plan discussed with: Patient, Other (nurse) LEXUS DELATORRE MD Aug 06, 2024 10:25
--- NOTE | 2024-08-06 10:41 | DVHPN2 ---
Subjective 84-year-old female presented to the emergency room with chest pain, she is getting over a upper respiratory infection with cough and congestion and she had an antibiotic for the last 10 days No chest pain now She says the chest pain is mostly in the morning when she wakes up once she is up and walking then it resolves usually Changes from previous H/P or p: Changes Eyes: No Pain, No Vision change, No Conjunctivae inflammation, No Eyelid inflammation, No Other, No Redness ENT: No Ear pain, No Ear discharge, No Nose pain, No Nose discharge, No Nose congestion, No Mouth pain, No Mouth swelling, No Throat pain, No Throat swelling, No Other Cardiovascular: Chest Pain, Palpitations; No Orthopnea, No Paroxysmal Noc. Dyspnea, No Edema, No Lt Headedness, No Other Respiratory: No Cough, No Dry, No Shortness of breath, No SOB with excertion, No Wheezing, No Hemoptysis, No Pleuritic Pain, No Sputum, No Other Gastrointestinal: No Nausea, No Vomiting, No Abdominal Pain, No Diarrhea, No Constipation, No Melena, No Hematochezia, No Other Musculoskeletal: No other, No neck pain, No shoulder pain, No arm pain, No back pain, No hand pain, No leg pain, No foot pain Skin: No Rash, No Lesions, No Jaundice, No Bruising, No Other Objective Vitals Vital Signs Date Time Temp Pulse Resp B/P (MAP) Pulse Ox O2 Delivery O2 Flow Rate FiO2 08/06/24 09:03 118/59 08/06/24 09:00 50 08/06/24 08:59 97.8 18 96 97.8 08/06/24 08:00 Nasal Cannula* 3 32 Intake/Output Intake and Output 08/06/24 07:00 Intake Total 300 ml Balance 300 ml Intake Oral 300 ml # Voids 1 General Appearance: Alert, Oriented X3, Cooperative, No acute distress Lungs: Clear to auscultation, Normal air movement Cardiovascular: Regular rate, Normal S1, Normal S2 Abdomen: Normal bowel sounds, Soft, No tenderness Extremities: No edema Medications Current Medications Medications Dose Ordered Sig/Robi Route Start Time Stop Time Status Last Admin Dose Admin Hydralazine HCl 20 mg TID PO 08/05/24 14:00 08/06/24 06:30 20 MG Aspirin 81 mg DAILY PO 08/06/24 10:00 08/06/24 09:02 81 MG Clopidogrel Bisulfate 75 mg DAILY PO 08/06/24 10:00 08/06/24 09:03 75 MG Atorvastatin Calcium 40 mg HS PO 08/05/24 22:00 08/05/24 22:08 40 MG Carvedilol 6.25 mg Q12HR PO 08/05/24 22:00 08/05/24 22:09 6.25 MG Lisinopril 5 mg DAILY PO 08/06/24 10:00 08/06/24 09:03 5 MG Acetaminophen 650 mg Q6HP PRN PO 08/05/24 12:45 08/05/24 23:35 650 MG Zolpidem Tartrate 5 mg QHSP PRN PO 08/05/24 12:45 Docusate Sodium 100 mg DAILY PO 08/06/24 10:00 08/06/24 09:03 100 MG Ondansetron HCl 4 mg Q4HP PRN IV 08/05/24 12:45 Nitroglycerin 0.4 mg Q5MINP PRN SL 08/05/24 12:45 Morphine Sulfate 2 mg Q30M PRN IV 08/05/24 12:45 Diagnostic Test (Pha) 1 strip IQ4HR 08/05/24 16:00 08/06/24 08:09 1 STRIP Insulin Human Regular IQ4HR SC 08/05/24 16:00 Dextrose 50 ml UD PRN IV 08/05/24 12:45 08/05/24 20:54 50 ML Apixaban 2.5 mg BID PO 08/06/24 22:00 UNV Laboratory Results Laboratory Tests 08/06/24 05:11 Chemistry Test 08/05/24 11:30 08/05/24 12:23 08/06/24 05:11 Albumin 4.0 g/dL (3.2-4.8) Calcium Level 9.5 mg/dL (8.7-10.4) 8.8 mg/dL (8.7-10.4) Magnesium Level 2.1 mg/dL (1.6-2.6) 2.1 mg/dL (1.6-2.6) Total Protein 7.4 g/dL (5.7-8.2) Coagulation Test 08/05/24 11:30 Prothrombin Time 11.3 sec (9.3-11.8) Prothrombin Time INR 1.07 (0.9-1.15) Activated Partial Thromboplast Time 28.8 SEC (24.5-34.5) Cardiac Markers Test 08/05/24 11:30 B-Type Natriuretic Peptide 45.95 pg/mL (0-100) LFT Test 08/05/24 11:30 Alanine Aminotransferase (ALT) 11 U/L (7-40) Alkaline Phosphatase 90 U/L (46-116) Aspartate Amino Transferase (AST) 16 U/L (13-40) Total Bilirubin 0.7 mg/dL (0.2-1.0) HgA1c, TSH Test 08/05/24 12:23 Thyroid Stimulating Hormone (TSH) 3.07 uIU/mL (0.55-4.78) Urinalysis Test 08/05/24 20:30 Urine Color Light-yellow (Yellow) Urine Clarity Clear (Clear) Urine pH 5.5 (5.0-9.0) Urine Specific [place] 1.015 (1.001-1.035) Urine Protein Negative (Negative) Urine Ketones Negative (Negative) Urine Blood Negative /uL (Negative) Urine Nitrite Negative (Negative) Urine Bilirubin Negative (Negative) Urine Urobilinogen Normal mg/dL (Negative) Urine Leukocyte Esterase Negative /uL (Negative) Urine RBC 3 /hpf (0 - 4) Urine WBC 1 /hpf (0 - 5) Urine Squamous Epithelial Cells Few /hpf (<5) Urine Bacteria None seen /hpf (None Seen) Urine Hyaline Casts Few /lpf (0 - 2) Urine Glucose 1+ mg/dL (Normal) H Assessment/Plan Assessment/Plan Chest pain Recent upper respiratory infection Hypertension Paroxysmal atrial fibrillation Hypoglycemia History of pulmonary hypertension Hyperlipidemia Plan Tapered down the oxygen as needed DC the Accu-Cheks, patient is not diabetic Resume the home medication is Cardiology consult CT scan of the chest without contrast, done, result is pending Full code Advance directives discussed for 20 minutes She said she had a recent echocardiogram Plan discussed with: Patient Date of Service: Aug 06, 2024 Billing Provider: ZHANE FELIX MD Common Visit Codes: [id number] INP/OBS CARE(HIGH) Secondary Visit Codes: [id number] CARE PLAN 30 MINUTES ZHANE FELIX MD Aug 06, 2024 10:41
--- NOTE | 2024-08-06 18:47 | DVHINCON2 ---
Date of service: Aug 06, [address] Vidal Reason for Consultation Shortness of breath History of Present Illness 84-year-old woman history of hypertension, atrial fibrillation who presented with chest pain. She was also complaining of shortness of breath. Chest pain is related to activity. Slightly relieved by rest. She describes it as substernal and pressure-like. She has been having this chest pain on and off for the last 10 days. It wakes her up from her sleep. She also notes episodes of epistasis for the last 10 days. She also notes nasal congestion, cough and productive cough for the last 10 days. She recently completed Augmentin course. She also mentioned some diarrhea after antibiotics. Pulmonary consultation is called for evaluation of shortness of breath on exertion and epistasis. Review of systems: 14 point review of systems is negative unless otherwise noted above. Past medical history: Atrial fibrillation, hypertension Past surgical history: None mentioned in prior surgeries. Medications: Amiodarone, atorvastatin, betamethasone cream, Eliquis, celecoxib, fish oil, furosemide Allergies: No known drug allergies. Family history: No family history of premature CAD. No family history of lung disease. Social history: Ex-smoker. Quit smoking over 20 years ago. Smoked for 40 years. Family History: Arthritis G8 MOTHER Blood clots Cardiovascular disease G8 MOTHER FH: multiple sclerosis G8 FATHER Allergies: Coded Allergies: NO KNOWN ALLERGIES (Unverified , 07/10/10) Home Meds Active Scripts Azithromycin (Zithromax) 250 Mg Tab, 250 MG PO DAILY for 5 Days, #5 TAB Prov:KASHMIR SHAW MD 02/22/24 Diltiazem HCl (Diltiazem Hydrochloride E) 180 Mg Cap, 180 MG PO DAILY for 30 Days, #30 CAP 11 Refills Prov:PRASANTH VELA DO 09/10/23 Atorvastatin Calcium (ATORVASTATIN CALCIUM) 20 Mg Tab, 20 MG PO HS for 30 Days, #30 TAB 11 Refills Prov:PRASANTH VELA DO 09/10/23 Digoxin (Digoxin) 125 Mcg Tab, 125 MCG PO DAILY for 30 Days, #30 TAB 2 Refills Prov:KASHMIR SHAW MD 09/09/23 Sotalol Hcl (Betapace) 80 Mg Tab, 80 MG PO TID for 30 Days, #90 TAB 2 Refills Prov:KASHMIR SHAW MD 09/09/23 Reported Medications Hydrocortone (Hydrocortisone 1%) 1 Applic Ap, 1 APPLIC TOP BID Apply externally to the affected area twice daily. 02/22/24 Celecoxib (Celecoxib) 200 Mg Cap, 1 CAP PO DAILY 02/20/24 Sotalol Hcl (Sotalol Hcl) 80 Mg Tab, TAB PO 02/20/24 Furosemide (Furosemide) 20 Mg Tab, 1 TAB PO BID 02/20/24 Tacrolimus (Tacrolimus) 0.1 % Oin, TOP BID Apply topically to the affected area twice daily. 02/20/24 Betamethasone Dipropionate (Betamethasone Dipropionat) 0.05 % Oin, TOP 02/20/24 Sildenafil Citrate (Sildenafil Citrate) 20 Mg Tab, 2 TAB PO DAILY 02/20/24 Acetaminophen (Acetaminophen) 325 Mg Tab, 325 MG PO Q4HP PRN for MILD PAIN for 30 Days, MG 0 Refills 01/22/21 Baclofen (Baclofen) 10 Mg Tab, 10 MG PO BID for 30 Days, MG 01/22/21 Potassium Chloride (K-Tabs) 10 Meq Tab, 1 TAB PO BID 04/16/20 Apixaban Base (ELIQUIS) 5 Mg Tab, 5 MG PO BID, TAB 10/24/18 Gabapentin (Gabapentin) 300 Mg Cap, 1 CAP PO DAILY 10/24/18 Current Medications Current Medications Medications (Trade) Dose Ordered Sig/Robi Route PRN Reason Start Time Stop Time Status Last Admin Aspirin 81 mg DAILY PO 08/06/24 10:00 08/06/24 18:23 DC 08/06/24 09:02 Clopidogrel Bisulfate (Plavix) 75 mg DAILY PO 08/06/24 10:00 08/06/24 18:23 DC 08/06/24 09:03 Atorvastatin Calcium (Lipitor) 40 mg HS PO 08/05/24 22:00 08/05/24 22:08 Carvedilol (Coreg Tablet) 6.25 mg Q12HR PO 08/05/24 22:00 08/05/24 22:09 Lisinopril (Zestril Tablet) 5 mg DAILY PO 08/06/24 10:00 08/06/24 09:03 Docusate Sodium (Colace Capsule) 100 mg DAILY PO 08/06/24 10:00 08/06/24 09:03 Apixaban (Eliquis) 2.5 mg BID PO 08/06/24 22:00 Vital Signs Vital Signs Date Time Temp Pulse Resp B/P (MAP) Pulse Ox O2 Delivery O2 Flow Rate FiO2 08/06/24 16:58 98.8 56 18 107/51 (69) 98 98.8 08/06/24 08:00 Nasal Cannula* 3 32 Physical Exam Gen.: Patient lying in bed in no apparent distress. On supplemental oxygen. Head: Normocephalic, atraumatic Eyes: EOMI/PERRLA. Ears: Normal hearing. Normal anatomy. Neck/trachea: Trachea midline, supple. Nose: Normal external anatomy. Mouth: Moist mucous membranes. Chest: Fair air entry bilaterally. No wheezing or rhonchi. Cardio vascular: Positive S1, positive S2. Regular rate and rhythm. Abdomen: Positive bowel sounds in all 4 quadrants. Soft, non-tender, non- distended. : Deferred. Rectal: Deferred Skin: Warm, dry. Extremities: 2+ radial pulses bilaterally. No lower extremity edema. Neuro: Awake, alert, oriented x3. No gross motor or sensory deficits. Cranial nerves II through XII intact. Gait not assessed. Labs/Diagnostic Data Labs Test 08/06/24 08:07 08/06/24 05:11 08/05/24 20:30 08/05/24 14:38 Range/Units POC Glucose 81 70-106 mg/dl White Blood Count 5.1 4.4-10.8 10^3/uL Red Blood Count 3.89 L 4.0-5.20 10^6/uL Hemoglobin 11.9 L 12.2-16.2 g/dL Hematocrit 35.5 #L 36.0-46.0 % Mean Corpuscular Volume 91.1 80.0-100.0 fL Mean Corpuscular Hemoglobin 30.6 28.0-32.0 pg Mean Corpuscular Hemoglobin Concent 33.6 32.0-36.0 g/dL Red Cell Distribution Width 17.5 H 11.8-14.3 % Platelet Count 144 140-450 10^3/uL Mean Platelet Volume 8.6 6.9-10.8 fL Neutrophils (%) (Auto) 37.0-80.0 % Lymphocytes (%) (Auto) 10.0-50.0 % Monocytes (%) (Auto) 0.0-12.0 % Basophils (%) (Auto) 0.0-2.0 % Neutrophils # (Auto) 1.6-8.6 10 ^3/uL Lymphocytes # (Auto) 0.4-5.4 10 ^3/uL Monocytes # (Auto) 0-1.3 10 ^3/uL Differential Total Cells Counted 100.0 100 Neutrophils % (Manual) 47 37.0-80.0 Band Neutrophils % (Manual) 0 Lymphocytes % (Manual) 24 10.0-50.0 Monocytes % (Manual) 22 H 0-12 Eosinophils % (Manual) 7 0-7 Basophils % (Manual) 0 0.0-2.0 Metamyelocytes % (manual) 0 Myelocytes % (Manual) 0 Promyelocytes % (Manual) 0 Blast Cells % (Manual) 0 Reactive Lymphocytes 0 Platelet Estimate Decreased Sodium Level 141 136-145 mmol/L Potassium Level 4.2 3.5-5.1 mmol/L Chloride Level 108 H 98-107 mmol/L Carbon Dioxide Level 27 20-31 mmol/L Anion Gap 6 5-15 Blood Urea Nitrogen 13 9-23 mg/dL Creatinine 0.90 0.550-1.02 mg/dL Glomerular Filtration Rate Calc 64 >90 mL/min BUN/Creatinine Ratio 14.4 10.0-20.0 Serum Glucose 86 74-106 mg/dL Calcium Level 8.8 8.7-10.4 mg/dL Urine Color Light-yellow Yellow Urine Clarity Clear Clear Urine pH 5.5 5.0-9.0 Urine Specific [place] 1.015 1.001-1.035 Urine Protein Negative Negative Urine Ketones Negative Negative Urine Blood Negative Negative /uL Urine Nitrite Negative Negative Urine Bilirubin Negative Negative Urine Urobilinogen Normal Negative mg/dL Urine Leukocyte Esterase Negative Negative /uL Urine RBC 3 0 - 4 /hpf Urine WBC 1 0 - 5 /hpf Urine Squamous Epithelial Cells Few <5 /hpf Urine Bacteria None seen None Seen /hpf Urine Hyaline Casts Few 0 - 2 /lpf Urine Glucose 1+ H Normal mg/dL Troponin I High Sensitivity 13 </=34 ng/L Test 08/05/24 12:23 08/05/24 11:30 Range/Units Magnesium Level 2.1 1.6-2.6 mg/dL Thyroid Stimulating Hormone (TSH) 3.07 0.55-4.78 uIU/mL Red Blood Cell Morphology Normal Prothrombin Time 11.3 9.3-11.8 sec Prothrombin Time INR 1.07 0.9-1.15 Activated Partial Thromboplast Time 28.8 24.5-34.5 SEC Total Bilirubin 0.7 0.2-1.0 mg/dL Aspartate Amino Transferase (AST) 16 13-40 U/L Alanine Aminotransferase (ALT) 11 7-40 U/L Alkaline Phosphatase 90 46-116 U/L B-Type Natriuretic Peptide 45.95 0-100 pg/mL Total Protein 7.4 5.7-8.2 g/dL Albumin 4.0 3.2-4.8 g/dL Assessment Impression: Chest pain rule out ACS Atrial fibrillation Epistasis Obesity with a BMI of 30 Ex-smoker Dyspnea on exertion Atelectasis Plan: Chest x-ray imaging report reviewed. Cardiomegaly. No acute opacities. Follow up CT chest images and report. Supplemental oxygen keep O2 saturation above 92%. On 3 liters/minute via nasal cannula On Eliquis for atrial fibrillation On Coreg /SUSAN inhibitor. Hydralazine for BP control On statin Incentive spirometry for atelectasis. Accu-Cheks, insulin sliding scale Diet and lifestyle modifications for weight reduction given obesity. Obesity complicates all care. Recommend outpatient follow up for pulmonary function tests and 6 minute walk test. Cardiology recommendations appreciated. DVT prophylaxis-on Eliquis Prognosis: Guarded given multiple comorbidities. Rest of plan per hospitalist and other consultants. Thank you Dr. Vidal for allowing me to participate in this patient's care. Further recommendations will depend on patient's clinical course. Please do not hesitate to contact me if you have any questions or concerns. This medical document was created using an electronic medical record system with [email or web address] dictation system. Although this document has been carefully reviewed, there may still be some phonetic and typographical errors. These areas are purely typographical due to imperfections of the software programs, and do not reflect any compromise in the patient's medical care. Plan discussed with: Patient, Other (KIKI Bee MD) TRICIA PRICE MD Aug 06, 2024 18:47
[2024-08-06] MEDS: APIXABAN 2.5 MG TAB PO SCH (21:20)
[2024-08-07] VITALS (8 sets, daily range): BP systolic 98–112; BP diastolic 54–63; PULSE 51–98; RESP 16–20; TEMP 97.8–98.5; O2SAT 56–98
--- NOTE | 2024-08-07 06:12 | DVHPN2 ---
Progress Note - Dictate Date Seen: Aug 07, 2024 Medical Necessity Reason Pt with a Central, PICC or Fol: No vital signs Vital Sign Date Time Temp Pulse Resp B/P (MAP) Pulse Ox O2 Delivery O2 Flow Rate FiO2 08/07/24 05:16 103/59 08/07/24 05:00 97.9 57 20 97 97.9 08/06/24 20:00 Nasal Cannula* 3 32 Total Intake and Output 08/06/24 08/06/24 08/07/24 15:00 23:00 07:00 Intake Total 525 ml 1695 ml Output Total 1 ml Balance 525 ml 1694 ml medications Current Medications Medications Dose Ordered Sig/Robi Route Start Time Stop Time Status Last Admin Dose Admin Hydralazine HCl 20 mg TID PO 08/05/24 14:00 08/07/24 05:16 20 MG Atorvastatin Calcium 40 mg HS PO 08/05/24 22:00 08/06/24 21:20 40 MG Carvedilol 6.25 mg Q12HR PO 08/05/24 22:00 08/05/24 22:09 6.25 MG Lisinopril 5 mg DAILY PO 08/06/24 10:00 08/06/24 09:03 5 MG Acetaminophen 650 mg Q6HP PRN PO 08/05/24 12:45 08/05/24 23:35 650 MG Zolpidem Tartrate 5 mg QHSP PRN PO 08/05/24 12:45 Docusate Sodium 100 mg DAILY PO 08/06/24 10:00 08/06/24 09:03 100 MG Ondansetron HCl 4 mg Q4HP PRN IV 08/05/24 12:45 Nitroglycerin 0.4 mg Q5MINP PRN SL 08/05/24 12:45 Morphine Sulfate 2 mg Q30M PRN IV 08/05/24 12:45 Dextrose 50 ml UD PRN IV 08/05/24 12:45 08/05/24 20:54 50 ML Apixaban 2.5 mg BID PO 08/06/24 22:00 08/06/24 21:20 2.5 MG laboratory and microbiology Laboratory Tests 08/06/24 05:11 Test 08/06/24 05:11 Range/Units Serum Glucose 86 74-106 mg/dL Assessment/Plan Patient is a 84-year-old female who presented with chest discomfort. Chest discomfort started around 10 days ago accompanied with cough/congestion/occasional nosebleed. She has been on antibiotics (Augmentin) for URI. She did have occasional diarrhea also. She is known to our practice from outside. Cardiology is involved for cardiac aspects of care. No JVD. Mucosa is pink and wet. No carotid bruit. Chest: Scattered rhonchi. No rales. Cardiac: Regular, no thrill/gallop. Systolic murmur 2/6 in apex is heard. Abdomen is soft. Extremities do not reveal edema. PMH includes hypertension, obesity, hyperlipidemia, paroxysmal a-fib (on Eliquis/digoxin), peripheral neuropathy, Emphysema, Pulmonary hypertension, diverticulosis, degenerative disc disease of the cervical spine, GERD, valvular heart disease, moderate to severe TR, diverticulosis, kyphosis, spondylosis, hiatal hernia and liver cyst. Had hysterectomy years ago. Quit smoking years ago. No drug/alcohol abuse. Had Cardiac cath ([facility]) in 2009: normal coronaries. Had Cardiac Cath ([facility]) in 2019: Normal coronaries and pulmonary hypertension. Echo (office) of : EF of 65 to 70%, mild to moderate TR, moderate pulmonary hypertension Echocardiogram in 2020 revealed ejection fraction of 71%, left ventricle hypertrophy, mild TR, trace MR and right ventricular systolic pressure of 69 mmHg Echocardiogram of March 01, 2022 (performed the office) revealed LVH, LVEF of 60 to 65%, pseudo normal LV filling, moderate right atrial enlargement, aortic sclerosis, moderate to severe TR and right ventricular systolic pressure of 70 mmHg Echocardiogram of September 07, 2023 had revealed mild concentric left ventricular hypertrophy, ejection fraction of 60%, moderate biatrial enlargement, moderate TR and right ventricular systolic pressure of 43 mm Hg Echocardiogram of February 22, 2024 revealed ejection fraction 55%, biatrial enlargement, aortic sclerosis with no stenosis, mitral annular calcification, trace MR, mild TR and right ventricular systolic pressure 41 mm Hg Nuclear stress test of April 23, 2024 (performed in the office) revealed normal perfusion, ejection fraction of 77% WBC: 4.8 - 5.1 Hemoglobin: 12.8 - 11.9 Creatinine: 1.02 - 0.90 Potassium: 4.2 - 4.2 Troponin (high sensitive): BNP: 45.95 TSH: 3.07 Chest x-ray revealed: 1. Cardiomegaly. No acute cardiopulmonary pathology. EKG revealed sinus rhythm Patient is a 84-year-old female who presented with 1 week of chest discomfort/cough/congestion/nosebleed. Presentation is not in favor of acute coronary syndrome. URI is considered. It is of note that the patient does have history of atrial fibrillation/flutter as outpatient and usually is on Eliquis. Has been having repeated nosebleed. We can decrease the dose of Eliquis at this point recognizing the bleedings. URI Diarrhea Atrial fibrillation/flutter, history of History of pulmonary hypertension Hyperlipidemia Hypertension Cardiac suggestion for management: Manage in tele Follow-up electrolytes and kidney function test and correct abnormalities. Keep potassium above 4 magnesium above 2 Full anticoagulation (on Eliquis): You can have the dose of 2.[address] of the chest without contrast Evaluation and management of URI as per primary team No ischemic workup indicated Further evaluation and management depends on the above and clinical course A total of 55 minutes was spent reviewing the patient record, examining the patient, making a diagnostic and therapeutic plan, discussing this plan with medical personnel, following up on diagnostic studies and following the patient for clinical stability excluding any and all procedures. At least 50% of this time was spent in direct, [id number] contact. Thank you for allowing me to participate in this patient's care. Further recommendations will depend on patient's clinical course. Please do not hesitate to contact me if you have any questions or concerns. This medical document was created using electronic medical record system with [employer] computerized dictation system. Although this document has been carefully reviewed, there may still be some phonetic and typographical errors. These areas are purely typographical due to the imperfection of the software programs, and do not reflect any compromise in the patient's medical care. Plan discussed with: Other (nurse) LEXUS DELATORRE MD Aug 07, 2024 06:12
--- NOTE | 2024-08-07 14:02 | DVHPN2 ---
Subjective She is feeling better No chest pain but she is complaining of neck pain on the size and the back of her neck CT scan of the chest was done but still pending Changes from previous H/P or p: Changes Eyes: No Pain, No Vision change, No Conjunctivae inflammation, No Eyelid inflammation, No Other, No Redness ENT: No Ear pain, No Ear discharge, No Nose pain, No Nose discharge, No Nose congestion, No Mouth pain, No Mouth swelling, No Throat pain, No Throat swelling, No Other Cardiovascular: Chest Pain, Palpitations; No Orthopnea, No Paroxysmal Noc. Dyspnea, No Edema, No Lt Headedness, No Other Respiratory: No Cough, No Dry, No Shortness of breath, No SOB with excertion, No Wheezing, No Hemoptysis, No Pleuritic Pain, No Sputum, No Other Gastrointestinal: No Nausea, No Vomiting, No Abdominal Pain, No Diarrhea, No Constipation, No Melena, No Hematochezia, No Other Musculoskeletal: No other, No neck pain, No shoulder pain, No arm pain, No back pain, No hand pain, No leg pain, No foot pain Skin: No Rash, No Lesions, No Jaundice, No Bruising, No Other Objective Vitals Vital Signs Date Time Temp Pulse Resp B/P (MAP) Pulse Ox O2 Delivery O2 Flow Rate FiO2 08/07/24 13:53 98/54 08/07/24 13:00 98.5 56 17 90 98.5 08/07/24 08:15 Nasal Cannula* 2 28 Intake/Output Intake and Output 08/07/24 07:00 Intake Total 2220 ml Output Total 1 ml Balance 2219 ml Intake Oral 1420 ml Tube Feeding 800 ml Output Stool Total 1 ml # Voids 3 # Bowel Movements 1 General Appearance: Alert, Oriented X3, Cooperative, No acute distress Lungs: Clear to auscultation, Normal air movement Cardiovascular: Regular rate, Normal S1, Normal S2 Abdomen: Normal bowel sounds, Soft, No tenderness Extremities: No edema Medications Current Medications Medications Dose Ordered Sig/Robi Route Start Time Stop Time Status Last Admin Dose Admin Hydralazine HCl 20 mg TID PO 08/05/24 14:00 08/07/24 05:16 20 MG Atorvastatin Calcium 40 mg HS PO 08/05/24 22:00 08/06/24 21:20 40 MG Carvedilol 6.25 mg Q12HR PO 08/05/24 22:00 08/05/24 22:09 6.25 MG Lisinopril 5 mg DAILY PO 08/06/24 10:00 08/07/24 10:35 5 MG Acetaminophen 650 mg Q6HP PRN PO 08/05/24 12:45 08/07/24 12:37 650 MG Zolpidem Tartrate 5 mg QHSP PRN PO 08/05/24 12:45 Docusate Sodium 100 mg DAILY PO 08/06/24 10:00 08/07/24 10:06 100 MG Ondansetron HCl 4 mg Q4HP PRN IV 08/05/24 12:45 Nitroglycerin 0.4 mg Q5MINP PRN SL 08/05/24 12:45 Morphine Sulfate 2 mg Q30M PRN IV 08/05/24 12:45 Dextrose 50 ml UD PRN IV 08/05/24 12:45 08/05/24 20:54 50 ML Apixaban 2.5 mg BID PO 08/06/24 22:00 08/07/24 10:34 2.5 MG Laboratory Results Laboratory Tests 08/06/24 05:11 Urinalysis Test 08/05/24 20:30 Urine Color Light-yellow (Yellow) Urine Clarity Clear (Clear) Urine pH 5.5 (5.0-9.0) Urine Specific [place] 1.015 (1.001-1.035) Urine Protein Negative (Negative) Urine Ketones Negative (Negative) Urine Blood Negative /uL (Negative) Urine Nitrite Negative (Negative) Urine Bilirubin Negative (Negative) Urine Urobilinogen Normal mg/dL (Negative) Urine Leukocyte Esterase Negative /uL (Negative) Urine RBC 3 /hpf (0 - 4) Urine WBC 1 /hpf (0 - 5) Urine Squamous Epithelial Cells Few /hpf (<5) Urine Bacteria None seen /hpf (None Seen) Urine Hyaline Casts Few /lpf (0 - 2) Urine Glucose 1+ mg/dL (Normal) H Assessment/Plan Assessment/Plan Chest pain Recent upper respiratory infection Hypertension Paroxysmal atrial fibrillation Hypoglycemia History of pulmonary hypertension Hyperlipidemia Plan Tapered down the oxygen as needed DC the Accu-Cheks, patient is not diabetic Resume the home medication is Cardiology consult CT scan of the chest without contrast, done, result is pending Full code Advance directives discussed for 20 minutes She said she had a recent echocardiogram 08/07/2024: Continue Eliquis Cardiology recommended no ischemic workup at this time Check the results of the CT scan Oxygen as needed Check the room air oxygen saturation to assess for the need for possible home O2 Plan discussed with: Patient Date of Service: Aug 07, 2024 Billing Provider: ZHANE FELIX MD Common Visit Codes: [id number] INP/OBS CARE(HIGH) ZHANE FELIX MD Aug 07, 2024 14:02
[2024-08-07] MEDS: ZOLPIDEM TARTRATE 5 MG TAB PO PRN (22:29)
--- NOTE | 2024-08-07 23:29 | DVHPN2 ---
Progress Note - Dictate Date Seen: Aug 07, 2024 Medical Necessity Reason Pt with a Central, PICC or Fol: No Subjective Patient seen and examined at bedside. Remains on supplemental oxygen Overnight events reviewed. vital signs Vital Sign Date Time Temp Pulse Resp B/P (MAP) Pulse Ox O2 Delivery O2 Flow Rate FiO2 08/07/24 22:31 130/70 08/07/24 22:00 52 08/07/24 21:00 98.5 17 98 98.5 08/07/24 20:00 Nasal Cannula* 2 28 Total Intake and Output 08/06/24 08/06/24 08/07/24 15:00 23:00 07:00 Intake Total 525 ml 1695 ml Output Total 1 ml Balance 525 ml 1694 ml medications Current Medications Medications Dose Ordered Sig/Robi Route Start Time Stop Time Status Last Admin Dose Admin Hydralazine HCl 20 mg TID PO 08/05/24 14:00 08/07/24 22:31 20 MG Atorvastatin Calcium 40 mg HS PO 08/05/24 22:00 08/07/24 22:28 40 MG Carvedilol 6.25 mg Q12HR PO 08/05/24 22:00 08/05/24 22:09 6.25 MG Lisinopril 5 mg DAILY PO 08/06/24 10:00 08/07/24 10:35 5 MG Acetaminophen 650 mg Q6HP PRN PO 08/05/24 12:45 08/07/24 22:29 650 MG Zolpidem Tartrate 5 mg QHSP PRN PO 08/05/24 12:45 08/07/24 22:29 5 MG Docusate Sodium 100 mg DAILY PO 08/06/24 10:00 08/07/24 10:06 100 MG Ondansetron HCl 4 mg Q4HP PRN IV 08/05/24 12:45 Nitroglycerin 0.4 mg Q5MINP PRN SL 08/05/24 12:45 Morphine Sulfate 2 mg Q30M PRN IV 08/05/24 12:45 Dextrose 50 ml UD PRN IV 08/05/24 12:45 08/05/24 20:54 50 ML Apixaban 2.5 mg BID PO 08/06/24 22:00 08/07/24 22:29 2.5 MG objective Gen.: Patient lying in bed in no apparent distress. On supplemental oxygen. Head: Normocephalic, atraumatic. Eyes: EOMI/PERRLA. Ears: Normal hearing. Normal anatomy. Neck/trachea: Trachea midline, supple. Nose: Normal external anatomy. Mouth: Moist mucous membranes. Chest: Decreased air entry bilaterally. No wheezing or rhonchi. Cardiovascular: Positive S1, positive S2. Regular rate and rhythm. Abdomen: Positive bowel sounds in all 4 quadrants. Soft, non-tender, non- distended. : Deferred. Rectal: Deferred. Skin: Warm, dry. Intact. Extremities: 2+ radial pulses bilaterally. No lower extremity edema. Neuro: Awake, alert, oriented x3. No gross motor or sensory deficits. Cranial nerves II through XII intact. Gait not assessed. laboratory and microbiology Laboratory Tests 08/06/24 05:11 Test 08/06/24 05:11 Range/Units Serum Glucose 86 74-106 mg/dL Assessment/Plan Impression: Chest pain rule out ACS Atrial fibrillation Epistasis Obesity with a BMI of 30 Ex-smoker Dyspnea on exertion Atelectasis Events: Remains on supplemental oxygen, 2 LPM NC Taper O2 as tolerated Patient desaturated w/ exertion to 84% Arrange for home O2. ABG w/ exertion Recommend outpatient eval in pulmonary clinic for PFTs Incentive spirometry Recommend pulmonary function tests as outpatient. Get echocardiogram from Dr. Hernandez. Consider outpatient Echo. Labs and imaging reviewed. Rest of plan as noted below. Plan: Chest x-ray imaging report reviewed. Cardiomegaly. No acute opacities. Follow up CT chest images and report. Supplemental oxygen keep O2 saturation above 92%. On 2 liters/minute via nasal cannula On Eliquis for atrial fibrillation Coreg /SUSAN inhibitor - on hold Hydralazine for BP control On statin Incentive spirometry for atelectasis. Accu-Cheks, insulin sliding scale Diet and lifestyle modifications for weight reduction given obesity. Obesity complicates all care. Recommend outpatient follow up for pulmonary function tests and 6 minute walk test. Cardiology recommendations appreciated. DVT prophylaxis-on Eliquis Prognosis: Guarded given multiple comorbidities. Rest of plan per hospitalist and other consultants. Thank you Dr. Vidal for allowing me to participate in this patient's care. Further recommendations will depend on patient's clinical course. Please do not hesitate to contact me if you have any questions or concerns. This medical document was created using an electronic medical record system with [employer] dictation system. Although this document has been carefully reviewed, there may still be some phonetic and typographical errors. These areas are purely typographical due to imperfections of the software programs, and do not reflect any compromise in the patient's medical care. Plan discussed with: Patient, Other (KIKI Garibay) TRICIA PRICE MD Aug 07, 2024 23:29
[2024-08-08] VITALS (8 sets, daily range): BP systolic 105–122; BP diastolic 52–64; PULSE 50–58; RESP 14–18; TEMP 98–99.1; O2SAT 90–100
[2024-08-08] MEDS: MORPHINE SULFATE INJ 2 MG/ml SYRG IV PRN (05:22)
--- NOTE | 2024-08-08 07:44 | DVHPN2 ---
Progress Note - Dictate Date Seen: Aug 08, 2024 Medical Necessity Reason Pt with a Central, PICC or Fol: No vital signs Vital Sign Date Time Temp Pulse Resp B/P (MAP) Pulse Ox O2 Delivery O2 Flow Rate FiO2 08/08/24 05:52 51 20 103/59 08/08/24 05:00 98.7 99 98.7 08/07/24 20:00 Nasal Cannula* 2 28 Total Intake and Output 08/07/24 08/07/24 08/08/24 15:00 23:00 07:00 Intake Total 900 ml 750 ml Balance 900 ml 750 ml medications Current Medications Medications Dose Ordered Sig/Robi Route Start Time Stop Time Status Last Admin Dose Admin Hydralazine HCl 20 mg TID PO 08/05/24 14:00 08/08/24 05:03 20 MG Atorvastatin Calcium 40 mg HS PO 08/05/24 22:00 08/07/24 22:28 40 MG Carvedilol 6.25 mg Q12HR PO 08/05/24 22:00 08/05/24 22:09 6.25 MG Lisinopril 5 mg DAILY PO 08/06/24 10:00 08/07/24 10:35 5 MG Acetaminophen 650 mg Q6HP PRN PO 08/05/24 12:45 08/07/24 22:29 650 MG Zolpidem Tartrate 5 mg QHSP PRN PO 08/05/24 12:45 08/07/24 22:29 5 MG Docusate Sodium 100 mg DAILY PO 08/06/24 10:00 08/07/24 10:06 100 MG Ondansetron HCl 4 mg Q4HP PRN IV 08/05/24 12:45 Nitroglycerin 0.4 mg Q5MINP PRN SL 08/05/24 12:45 Morphine Sulfate 2 mg Q30M PRN IV 08/05/24 12:45 08/08/24 05:22 2 MG Dextrose 50 ml UD PRN IV 08/05/24 12:45 08/05/24 20:54 50 ML Apixaban 2.5 mg BID PO 08/06/24 22:00 08/07/24 22:29 2.5 MG laboratory and microbiology Laboratory Tests 08/06/24 05:11 Test 08/06/24 05:11 Range/Units Serum Glucose 86 74-106 mg/dL Assessment/Plan Patient is a 84-year-old female who presented with chest discomfort. Chest discomfort started around 10 days ago accompanied with cough/congestion/occasional nosebleed. She has been on antibiotics (Augmentin) for URI. She did have occasional diarrhea also. She is known to our practice from outside. Cardiology is involved for cardiac aspects of care. No JVD. Mucosa is pink and wet. No carotid bruit. Chest: Scattered rhonchi. No rales. Cardiac: Regular, no thrill/gallop. Systolic murmur 2/6 in apex is heard. Abdomen is soft. Extremities do not reveal edema. PMH includes hypertension, obesity, hyperlipidemia, paroxysmal a-fib (on Eliquis/digoxin), peripheral neuropathy, Emphysema, Pulmonary hypertension, diverticulosis, degenerative disc disease of the cervical spine, GERD, valvular heart disease, moderate to severe TR, diverticulosis, kyphosis, spondylosis, hiatal hernia and liver cyst. Had hysterectomy years ago. Quit smoking years ago. No drug/alcohol abuse. Had Cardiac cath ([facility]) in 2009: normal coronaries. Had Cardiac Cath ([facility]) in 2019: Normal coronaries and pulmonary hypertension. Echo (office) of : EF of 65 to 70%, mild to moderate TR, moderate pulmonary hypertension Echocardiogram in 2020 revealed ejection fraction of 71%, left ventricle hypertrophy, mild TR, trace MR and right ventricular systolic pressure of 69 mmHg Echocardiogram of March 01, 2022 (performed the office) revealed LVH, LVEF of 60 to 65%, pseudo normal LV filling, moderate right atrial enlargement, aortic sclerosis, moderate to severe TR and right ventricular systolic pressure of 70 mmHg Echocardiogram of September 07, 2023 had revealed mild concentric left ventricular hypertrophy, ejection fraction of 60%, moderate biatrial enlargement, moderate TR and right ventricular systolic pressure of 43 mm Hg Echocardiogram of February 22, 2024 revealed ejection fraction 55%, biatrial enlargement, aortic sclerosis with no stenosis, mitral annular calcification, trace MR, mild TR and right ventricular systolic pressure 41 mm Hg Nuclear stress test of April 23, 2024 (performed in the office) revealed normal perfusion, ejection fraction of 77% WBC: 4.8 - 5.1 Hemoglobin: 12.8 - 11.9 Creatinine: 1.02 - 0.90 Potassium: 4.2 - 4.2 Troponin (high sensitive): BNP: 45.95 TSH: 3.07 Chest x-ray revealed: 1. Cardiomegaly. No acute cardiopulmonary pathology. EKG revealed sinus rhythm Patient is a 84-year-old female who presented with 1 week of chest discomfort/cough/congestion/nosebleed. Presentation is not in favor of acute coronary syndrome. URI is considered. It is of note that the patient does have history of atrial fibrillation/flutter as outpatient and usually is on Eliquis. Has been having repeated nosebleed. We can decrease the dose of Eliquis at this point recognizing the bleedings. URI Diarrhea Atrial fibrillation/flutter, history of History of pulmonary hypertension Hyperlipidemia Hypertension Cardiac suggestion for management: Manage in tele Follow-up electrolytes and kidney function test and correct abnormalities. Keep potassium above 4 magnesium above 2 Full anticoagulation (on Eliquis): You can have the dose of 2.[address] of the chest without contrast Evaluation and management of URI as per primary team No ischemic workup indicated Cardiac wellington, stable Further evaluation and management depends on the above and clinical course A total of 55 minutes was spent reviewing the patient record, examining the patient, making a diagnostic and therapeutic plan, discussing this plan with medical personnel, following up on diagnostic studies and following the patient for clinical stability excluding any and all procedures. At least 50% of this time was spent in direct, [id number] contact. Thank you for allowing me to participate in this patient's care. Further recommendations will depend on patient's clinical course. Please do not hesitate to contact me if you have any questions or concerns. This medical document was created using electronic medical record system with [employer] computerized dictation system. Although this document has been carefully reviewed, there may still be some phonetic and typographical errors. These areas are purely typographical due to the imperfection of the software programs, and do not reflect any compromise in the patient's medical care. Plan discussed with: Patient, Other (nurse) LEXUS DELATORRE MD Aug 08, 2024 07:44
--- NOTE | 2024-08-08 12:55 | DVHPN2 ---
Subjective Her only complaint is neck pain She was checked on room air yesterday and she was hypoxic and she needs home O2 Changes from previous H/P or p: Changes Eyes: No Pain, No Vision change, No Conjunctivae inflammation, No Eyelid inflammation, No Other, No Redness ENT: No Ear pain, No Ear discharge, No Nose pain, No Nose discharge, No Nose congestion, No Mouth pain, No Mouth swelling, No Throat pain, No Throat swelling, No Other Cardiovascular: Chest Pain, Palpitations; No Orthopnea, No Paroxysmal Noc. Dyspnea, No Edema, No Lt Headedness, No Other Respiratory: No Cough, No Dry, No Shortness of breath, No SOB with excertion, No Wheezing, No Hemoptysis, No Pleuritic Pain, No Sputum, No Other Gastrointestinal: No Nausea, No Vomiting, No Abdominal Pain, No Diarrhea, No Constipation, No Melena, No Hematochezia, No Other Musculoskeletal: No other, No neck pain, No shoulder pain, No arm pain, No back pain, No hand pain, No leg pain, No foot pain Skin: No Rash, No Lesions, No Jaundice, No Bruising, No Other Objective Vitals Vital Signs Date Time Temp Pulse Resp B/P (MAP) Pulse Ox O2 Delivery O2 Flow Rate FiO2 08/08/24 09:53 50 122/60 08/08/24 09:00 98.0 16 96 98.0 08/08/24 08:10 Nasal Cannula* 2 28 Intake/Output Intake and Output 08/08/24 07:00 Intake Total 1650 ml Balance 1650 ml Intake Oral 1650 ml # Voids 3 # Bowel Movements 1 General Appearance: Alert, Oriented X3, Cooperative, No acute distress Lungs: Clear to auscultation, Normal air movement Cardiovascular: Regular rate, Normal S1, Normal S2 Abdomen: Normal bowel sounds, Soft, No tenderness Extremities: No edema Medications Current Medications Medications Dose Ordered Sig/Robi Route Start Time Stop Time Status Last Admin Dose Admin Hydralazine HCl 20 mg TID PO 08/05/24 14:00 08/08/24 05:03 20 MG Atorvastatin Calcium 40 mg HS PO 08/05/24 22:00 08/07/24 22:28 40 MG Carvedilol 6.25 mg Q12HR PO 08/05/24 22:00 08/05/24 22:09 6.25 MG Lisinopril 5 mg DAILY PO 08/06/24 10:00 08/08/24 09:47 5 MG Acetaminophen 650 mg Q6HP PRN PO 08/05/24 12:45 08/08/24 09:53 650 MG Zolpidem Tartrate 5 mg QHSP PRN PO 08/05/24 12:45 08/07/24 22:29 5 MG Docusate Sodium 100 mg DAILY PO 08/06/24 10:00 08/08/24 09:47 100 MG Ondansetron HCl 4 mg Q4HP PRN IV 08/05/24 12:45 Nitroglycerin 0.4 mg Q5MINP PRN SL 08/05/24 12:45 Morphine Sulfate 2 mg Q30M PRN IV 08/05/24 12:45 08/08/24 05:22 2 MG Dextrose 50 ml UD PRN IV 08/05/24 12:45 08/05/24 20:54 50 ML Apixaban 2.5 mg BID PO 08/06/24 22:00 08/08/24 09:47 2.5 MG Laboratory Results Laboratory Tests 08/06/24 05:11 Urinalysis Test 08/05/24 20:30 Urine Color Light-yellow (Yellow) Urine Clarity Clear (Clear) Urine pH 5.5 (5.0-9.0) Urine Specific [place] 1.015 (1.001-1.035) Urine Protein Negative (Negative) Urine Ketones Negative (Negative) Urine Blood Negative /uL (Negative) Urine Nitrite Negative (Negative) Urine Bilirubin Negative (Negative) Urine Urobilinogen Normal mg/dL (Negative) Urine Leukocyte Esterase Negative /uL (Negative) Urine RBC 3 /hpf (0 - 4) Urine WBC 1 /hpf (0 - 5) Urine Squamous Epithelial Cells Few /hpf (<5) Urine Bacteria None seen /hpf (None Seen) Urine Hyaline Casts Few /lpf (0 - 2) Urine Glucose 1+ mg/dL (Normal) H Blood Gas Results Test 08/07/24 15:21 Arterial Blood pH 7.416 (7.350-7.450) FiO2 % 21.0 Assessment/Plan Assessment/Plan Chest pain Recent upper respiratory infection Hypertension Paroxysmal atrial fibrillation Hypoglycemia History of pulmonary hypertension Hyperlipidemia Plan Tapered down the oxygen as needed DC the Accu-Cheks, patient is not diabetic Resume the home medication is Cardiology consult CT scan of the chest without contrast, done, result is pending Full code Advance directives discussed for 20 minutes She said she had a recent echocardiogram 08/07/2024: Continue Eliquis Cardiology recommended no ischemic workup at this time Check the results of the CT scan Oxygen as needed Check the room air oxygen saturation to assess for the need for possible home O2 08/08/2024: Hypoxemia, she needs home O2 Apply hot packs to the neck muscles Continue Eliquis and carvedilol Lipitor Lisinopril Physical therapy Discharge planning once the home O2 is available Plan discussed with: Patient My Orders Orders - ZHANE FELIX MD Procedure Category Date Status Time Pt Request For Service PT 08/07/24 Logged 13:59 Abg W/ Co-Ox RT 08/07/24 Logged 14:58 * Counselor Manager CONS 08/08/24 Transmitted Consult Date of Service: Aug 08, 2024 Billing Provider: ZHANE FELIX MD Common Visit Codes: [id number] INP/OBS CARE(HIGH) ZHANE FELIX MD Aug 08, 2024 12:55
--- NOTE | 2024-08-08 20:31 | DVHPN2 ---
Progress Note - Dictate Date Seen: Aug 08, 2024 Medical Necessity Reason Pt with a Central, PICC or Fol: No Subjective Patient seen and examined at bedside. Remains on supplemental oxygen Overnight events reviewed. vital signs Vital Sign Date Time Temp Pulse Resp B/P (MAP) Pulse Ox O2 Delivery O2 Flow Rate FiO2 08/08/24 17:00 99.1 53 16 110/59 (76) 97 99.1 08/08/24 08:10 Nasal Cannula* 2 28 Total Intake and Output 08/07/24 08/07/24 08/08/24 15:00 23:00 07:00 Intake Total 900 ml 750 ml Balance 900 ml 750 ml medications Current Medications Medications Dose Ordered Sig/Robi Route Start Time Stop Time Status Last Admin Dose Admin Hydralazine HCl 20 mg TID PO 08/05/24 14:00 08/08/24 05:03 20 MG Atorvastatin Calcium 40 mg HS PO 08/05/24 22:00 08/07/24 22:28 40 MG Carvedilol 6.25 mg Q12HR PO 08/05/24 22:00 08/05/24 22:09 6.25 MG Lisinopril 5 mg DAILY PO 08/06/24 10:00 08/08/24 09:47 5 MG Acetaminophen 650 mg Q6HP PRN PO 08/05/24 12:45 08/08/24 09:53 650 MG Zolpidem Tartrate 5 mg QHSP PRN PO 08/05/24 12:45 08/07/24 22:29 5 MG Docusate Sodium 100 mg DAILY PO 08/06/24 10:00 08/08/24 09:47 100 MG Ondansetron HCl 4 mg Q4HP PRN IV 08/05/24 12:45 Nitroglycerin 0.4 mg Q5MINP PRN SL 08/05/24 12:45 Morphine Sulfate 2 mg Q30M PRN IV 08/05/24 12:45 08/08/24 05:22 2 MG Dextrose 50 ml UD PRN IV 08/05/24 12:45 08/05/24 20:54 50 ML Apixaban 2.5 mg BID PO 08/06/24 22:00 08/08/24 09:47 2.5 MG objective Gen.: Patient lying in bed in no apparent distress. On supplemental oxygen. Head: Normocephalic, atraumatic. Eyes: EOMI/PERRLA. Ears: Normal hearing. Normal anatomy. Neck/trachea: Trachea midline, supple. Nose: Normal external anatomy. Mouth: Moist mucous membranes. Chest: Decreased air entry bilaterally. No wheezing or rhonchi. Cardiovascular: Positive S1, positive S2. Regular rate and rhythm. Abdomen: Positive bowel sounds in all 4 quadrants. Soft, non-tender, non- distended. : Deferred. Rectal: Deferred. Skin: Warm, dry. Intact. Extremities: 2+ radial pulses bilaterally. No lower extremity edema. Neuro: Awake, alert, oriented x3. No gross motor or sensory deficits. Cranial nerves II through XII intact. Gait not assessed. laboratory and microbiology Laboratory Tests 08/06/24 05:11 Test 08/06/24 05:11 Range/Units Serum Glucose 86 74-106 mg/dL Assessment/Plan Impression: Chest pain rule out ACS Atrial fibrillation Epistasis Obesity with a BMI of 30 Ex-smoker Dyspnea on exertion Atelectasis Events: Remains on supplemental oxygen, 2 LPM NC Taper O2 as tolerated Arrange for home O2. Recommend outpatient eval in pulmonary clinic for PFTs Incentive spirometry Continue antihypertensive medication. Eliquis for atrial fibrillation Recommend pulmonary function tests as outpatient. Get echocardiogram from Dr. Hernandez. Consider outpatient Echo. Labs and imaging reviewed. Rest of plan as noted below. Plan: Chest x-ray imaging report reviewed. Cardiomegaly. No acute opacities. Follow up CT chest images and report. Supplemental oxygen keep O2 saturation above 92%. On 2 liters/minute via nasal cannula On Eliquis for atrial fibrillation Coreg /SUSAN inhibitor - on hold Hydralazine for BP control On statin Incentive spirometry for atelectasis. Accu-Cheks, insulin sliding scale PRN. Diet and lifestyle modifications for weight reduction given obesity. Obesity complicates all care. Recommend outpatient follow up for pulmonary function tests and 6 minute walk test. Cardiology recommendations appreciated. DVT prophylaxis-on Eliquis Prognosis: Guarded given multiple comorbidities. Rest of plan per hospitalist and other consultants. Thank you Dr. Vidal for allowing me to participate in this patient's care. Further recommendations will depend on patient's clinical course. Please do not hesitate to contact me if you have any questions or concerns. This medical document was created using an electronic medical record system with Dragon computerized dictation system. Although this document has been carefully reviewed, there may still be some phonetic and typographical errors. These areas are purely typographical due to imperfections of the software programs, and do not reflect any compromise in the patient's medical care. Plan discussed with: Patient, Other (KIKI Garibay) TRICIA PRICE MD Aug 08, 2024 20:31
[2024-08-09] VITALS (8 sets, daily range): BP systolic 116–141; BP diastolic 57–76; PULSE 53–72; RESP 18; TEMP 97.8–98.7; O2SAT 91–100
--- NOTE | 2024-08-09 07:44 | DVHPN2 ---
Progress Note - Dictate Date Seen: Aug 09, 2024 Medical Necessity Reason Pt with a Central, PICC or Fol: No Subjective Patient seen and examined at the bedside. Chart reviewed. vital signs Vital Sign Date Time Temp Pulse Resp B/P (MAP) Pulse Ox O2 Delivery O2 Flow Rate FiO2 08/09/24 05:45 141/68 08/09/24 05:00 98.4 53 18 91 98.4 08/08/24 20:00 Nasal Cannula* 2 28 Total Intake and Output 08/08/24 08/08/24 08/09/24 15:00 23:00 07:00 Intake Total 650 ml 500 ml Output Total 400 ml Balance 650 ml 100 ml medications Current Medications Medications Dose Ordered Sig/Robi Route Start Time Stop Time Status Last Admin Dose Admin Hydralazine HCl 20 mg TID PO 08/05/24 14:00 08/09/24 05:45 20 MG Atorvastatin Calcium 40 mg HS PO 08/05/24 22:00 08/08/24 21:31 40 MG Carvedilol 6.25 mg Q12HR PO 08/05/24 22:00 08/05/24 22:09 6.25 MG Lisinopril 5 mg DAILY PO 08/06/24 10:00 08/08/24 09:47 5 MG Acetaminophen 650 mg Q6HP PRN PO 08/05/24 12:45 08/08/24 21:42 650 MG Zolpidem Tartrate 5 mg QHSP PRN PO 08/05/24 12:45 08/07/24 22:29 5 MG Docusate Sodium 100 mg DAILY PO 08/06/24 10:00 08/08/24 09:47 100 MG Ondansetron HCl 4 mg Q4HP PRN IV 08/05/24 12:45 Nitroglycerin 0.4 mg Q5MINP PRN SL 08/05/24 12:45 Morphine Sulfate 2 mg Q30M PRN IV 08/05/24 12:45 08/08/24 05:22 2 MG Dextrose 50 ml UD PRN IV 08/05/24 12:45 08/05/24 20:54 50 ML Apixaban 2.5 mg BID PO 08/06/24 22:00 08/08/24 21:32 2.5 MG laboratory and microbiology Laboratory Tests 08/06/24 05:11 Test 08/06/24 05:11 Range/Units Serum Glucose 86 74-106 mg/dL Assessment/Plan Assessment/Plan Patient is a 84-year-old female who presented with chest discomfort. Chest discomfort started around 10 days ago accompanied with cough/congestion/occasional nosebleed. She has been on antibiotics (Augmentin) for URI. She did have occasional diarrhea also. She is known to our practice from outside. Cardiology is involved for cardiac aspects of care. No JVD. Mucosa is pink and wet. No carotid bruit. Chest: Scattered rhonchi. No rales. Cardiac: Regular, no thrill/gallop. Systolic murmur 2/6 in apex is heard. Abdomen is soft. Extremities do not reveal edema. PMH includes hypertension, obesity, hyperlipidemia, paroxysmal a-fib (on Eliquis/digoxin), peripheral neuropathy, Emphysema, Pulmonary hypertension, diverticulosis, degenerative disc disease of the cervical spine, GERD, valvular heart disease, moderate to severe TR, diverticulosis, kyphosis, spondylosis, hiatal hernia and liver cyst. Had hysterectomy years ago. Quit smoking years ago. No drug/alcohol abuse. Had Cardiac cath ([facility]) in 2009: normal coronaries. Had Cardiac Cath ([facility]) in 2019: Normal coronaries and pulmonary hypertension. Echo (office) of : EF of 65 to 70%, mild to moderate TR, moderate pulmonary hypertension Echocardiogram in 2020 revealed ejection fraction of 71%, left ventricle hypertrophy, mild TR, trace MR and right ventricular systolic pressure of 69 mmHg Echocardiogram of March 01, 2022 (performed the office) revealed LVH, LVEF of 60 to 65%, pseudo normal LV filling, moderate right atrial enlargement, aortic sclerosis, moderate to severe TR and right ventricular systolic pressure of 70 mmHg Echocardiogram of September 07, 2023 had revealed mild concentric left ventricular hypertrophy, ejection fraction of 60%, moderate biatrial enlargement, moderate TR and right ventricular systolic pressure of 43 mm Hg Echocardiogram of February 22, 2024 revealed ejection fraction 55%, biatrial enlargement, aortic sclerosis with no stenosis, mitral annular calcification, trace MR, mild TR and right ventricular systolic pressure 41 mm Hg Nuclear stress test of April 23, 2024 (performed in the office) revealed normal perfusion, ejection fraction of 77% WBC: 4.8 - 5.1 Hemoglobin: 12.8 - 11.9 Creatinine: 1.02 - 0.90 Potassium: 4.2 - 4.2 Troponin (high sensitive): 15 - 15 - 13 BNP: 45.95 TSH: 3.07 Chest x-ray revealed: 1. Cardiomegaly. No acute cardiopulmonary pathology. EKG revealed sinus rhythm Patient is a 84-year-old female who presented with 1 week of chest discomfort/cough/congestion/nosebleed. Presentation is not in favor of acute coronary syndrome. URI is considered. It is of note that the patient does have history of atrial fibrillation/flutter as outpatient and usually is on Eliquis. Has been having repeated nosebleed. We can decrease the dose of Eliquis at this point recognizing the bleedings. URI Diarrhea Atrial fibrillation/flutter, history of History of pulmonary hypertension Hyperlipidemia Hypertension Cardiac suggestion for management: Manage in tele Follow-up electrolytes and kidney function test and correct abnormalities. Keep potassium above 4 magnesium above 2 Full anticoagulation (on Eliquis): You can have the dose of 2.[address] of the chest without contrast Evaluation and management of URI as per primary team No ischemic workup indicated Cardiac well[place], stable Further evaluation and management depends on the above and clinical course A total of 55 minutes was spent reviewing the patient record, examining the patient, making a diagnostic and therapeutic plan, discussing this plan with medical personnel, following up on diagnostic studies and following the patient for clinical stability excluding any and all procedures. At least 50% of this time was spent in direct, [id number] contact. Thank you for allowing me to participate in this patient's care. Further recommendations will depend on patient's clinical course. Please do not hesitate to contact me if you have any questions or concerns. Plan discussed with: Patient (Patient and Primary RN ) G[facility]HEATHER L [facility] Aug 09, 2024 07:44
--- NOTE | 2024-08-09 12:15 | DVHPN2 ---
Eyes: No Pain, No Vision change, No Conjunctivae inflammation, No Eyelid inflammation, No Other, No Redness ENT: No Ear pain, No Ear discharge, No Nose pain, No Nose discharge, No Nose congestion, No Mouth pain, No Mouth swelling, No Throat pain, No Throat swelling, No Other Cardiovascular: Chest Pain, Palpitations; No Orthopnea, No Paroxysmal Noc. Dyspnea, No Edema, No Lt Headedness, No Other Respiratory: No Cough, No Dry, No Shortness of breath, No SOB with excertion, No Wheezing, No Hemoptysis, No Pleuritic Pain, No Sputum, No Other Gastrointestinal: No Nausea, No Vomiting, No Abdominal Pain, No Diarrhea, No Constipation, No Melena, No Hematochezia, No Other Musculoskeletal: No other, No neck pain, No shoulder pain, No arm pain, No back pain, No hand pain, No leg pain, No foot pain Skin: No Rash, No Lesions, No Jaundice, No Bruising, No Other Objective Vitals Vital Signs Date Time Temp Pulse Resp B/P (MAP) Pulse Ox O2 Delivery O2 Flow Rate FiO2 08/09/24 09:25 57 116/59 08/09/24 08:58 98.7 18 98 98.7 08/08/24 20:00 Nasal Cannula* 2 28 Intake/Output Intake and Output 08/09/24 07:00 Intake Total 1150 ml Output Total 400 ml Balance 750 ml Intake Oral 1150 ml Output Urine Total 400 ml # Voids 2 # Bowel Movements 2 General Appearance: Alert, Oriented X3, Cooperative, No acute distress Lungs: Clear to auscultation, Normal air movement Cardiovascular: Regular rate, Normal S1, Normal S2 Abdomen: Normal bowel sounds, Soft, No tenderness Extremities: No edema Medications Current Medications Medications Dose Ordered Sig/Robi Route Start Time Stop Time Status Last Admin Dose Admin Hydralazine HCl 20 mg TID PO 08/05/24 14:00 08/09/24 05:45 20 MG Atorvastatin Calcium 40 mg HS PO 08/05/24 22:00 08/08/24 21:31 40 MG Carvedilol 6.25 mg Q12HR PO 08/05/24 22:00 08/05/24 22:09 6.25 MG Lisinopril 5 mg DAILY PO 08/06/24 10:00 08/09/24 09:21 5 MG Acetaminophen 650 mg Q6HP PRN PO 08/05/24 12:45 08/08/24 21:42 650 MG Zolpidem Tartrate 5 mg QHSP PRN PO 08/05/24 12:45 08/07/24 22:29 5 MG Docusate Sodium 100 mg DAILY PO 08/06/24 10:00 08/09/24 09:20 100 MG Ondansetron HCl 4 mg Q4HP PRN IV 08/05/24 12:45 Nitroglycerin 0.4 mg Q5MINP PRN SL 08/05/24 12:45 Morphine Sulfate 2 mg Q30M PRN IV 08/05/24 12:45 08/08/24 05:22 2 MG Dextrose 50 ml UD PRN IV 08/05/24 12:45 08/05/24 20:54 50 ML Apixaban 2.5 mg BID PO 08/06/24 22:00 08/09/24 09:21 2.5 MG Laboratory Results Laboratory Tests 08/06/24 05:11 Urinalysis Test 08/05/24 20:30 Urine Color Light-yellow (Yellow) Urine Clarity Clear (Clear) Urine pH 5.5 (5.0-9.0) Urine Specific [place] 1.015 (1.001-1.035) Urine Protein Negative (Negative) Urine Ketones Negative (Negative) Urine Blood Negative /uL (Negative) Urine Nitrite Negative (Negative) Urine Bilirubin Negative (Negative) Urine Urobilinogen Normal mg/dL (Negative) Urine Leukocyte Esterase Negative /uL (Negative) Urine RBC 3 /hpf (0 - 4) Urine WBC 1 /hpf (0 - 5) Urine Squamous Epithelial Cells Few /hpf (<5) Urine Bacteria None seen /hpf (None Seen) Urine Hyaline Casts Few /lpf (0 - 2) Urine Glucose 1+ mg/dL (Normal) DESHAUN ELIZALDE MD Aug 09, 2024 12:15
--- NOTE | 2024-08-09 22:55 | DVHPN2 ---
Progress Note - Dictate Date Seen: Aug 09, 2024 Medical Necessity Reason Pt with a Central, PICC or Fol: No Subjective Patient seen and examined at bedside. Remains on supplemental oxygen Overnight events reviewed. vital signs Vital Sign Date Time Temp Pulse Resp B/P (MAP) Pulse Ox O2 Delivery O2 Flow Rate FiO2 08/09/24 21:03 58 137/64 08/09/24 21:00 98.7 18 98 98.7 08/09/24 20:00 Nasal Cannula* 2 28 Total Intake and Output 08/08/24 08/08/24 08/09/24 15:00 23:00 07:00 Intake Total 650 ml 500 ml Output Total 400 ml Balance 650 ml 100 ml medications Current Medications Medications Dose Ordered Sig/Robi Route Start Time Stop Time Status Last Admin Dose Admin Hydralazine HCl 20 mg TID PO 08/05/24 14:00 08/09/24 21:03 20 MG Atorvastatin Calcium 40 mg HS PO 08/05/24 22:00 08/09/24 21:02 40 MG Carvedilol 6.25 mg Q12HR PO 08/05/24 22:00 08/05/24 22:09 6.25 MG Lisinopril 5 mg DAILY PO 08/06/24 10:00 08/09/24 09:21 5 MG Acetaminophen 650 mg Q6HP PRN PO 08/05/24 12:45 08/09/24 21:08 650 MG Zolpidem Tartrate 5 mg QHSP PRN PO 08/05/24 12:45 08/07/24 22:29 5 MG Docusate Sodium 100 mg DAILY PO 08/06/24 10:00 08/09/24 09:20 100 MG Ondansetron HCl 4 mg Q4HP PRN IV 08/05/24 12:45 Nitroglycerin 0.4 mg Q5MINP PRN SL 08/05/24 12:45 Morphine Sulfate 2 mg Q30M PRN IV 08/05/24 12:45 08/08/24 05:22 2 MG Dextrose 50 ml UD PRN IV 08/05/24 12:45 08/05/24 20:54 50 ML Apixaban 2.5 mg BID PO 08/06/24 22:00 08/09/24 21:04 2.5 MG objective Gen.: Patient lying in bed in no apparent distress. On supplemental oxygen. Head: Normocephalic, atraumatic. Eyes: EOMI/PERRLA. Ears: Normal hearing. Normal anatomy. Neck/trachea: Trachea midline, supple. Nose: Normal external anatomy. Mouth: Moist mucous membranes. Chest: Decreased air entry bilaterally. No wheezing or rhonchi. Cardiovascular: Positive S1, positive S2. Regular rate and rhythm. Abdomen: Positive bowel sounds in all 4 quadrants. Soft, non-tender, non- distended. : Deferred. Rectal: Deferred. Skin: Warm, dry. Intact. Extremities: 2+ radial pulses bilaterally. No lower extremity edema. Neuro: Awake, alert, oriented x3. No gross motor or sensory deficits. Cranial nerves II through XII intact. Gait not assessed. laboratory and microbiology Laboratory Tests 08/06/24 05:11 Test 08/06/24 05:11 Range/Units Serum Glucose 86 74-106 mg/dL Assessment/Plan Impression: Chest pain rule out ACS Atrial fibrillation Epistasis Obesity with a BMI of 30 Ex-smoker Dyspnea on exertion Atelectasis Events: Remains on supplemental oxygen, 2 LPM NC Taper O2 as tolerated Arrange for home O2. Recommend outpatient eval in pulmonary clinic for PFTs Incentive spirometry Continue antihypertensive medication. Eliquis for atrial fibrillation Patient is stable for discharge from the pulmonary standpoint once home O2 is arranged. Recommend pulmonary function tests as outpatient. Get echocardiogram from Dr. Hernandez. Consider outpatient Echo. Labs and imaging reviewed. Rest of plan as noted below. Plan: Chest x-ray imaging report reviewed. Cardiomegaly. No acute opacities. Follow up CT chest images and report. Supplemental oxygen keep O2 saturation above 92%. On 2 liters/minute via nasal cannula On Eliquis for atrial fibrillation Coreg /SUSAN inhibitor - on hold Hydralazine for BP control On statin Incentive spirometry for atelectasis. Accu-Cheks, insulin sliding scale PRN. Diet and lifestyle modifications for weight reduction given obesity. Obesity complicates all care. Recommend outpatient follow up for pulmonary function tests and 6 minute walk test. Cardiology recommendations appreciated. DVT prophylaxis-on Eliquis Prognosis: Guarded given multiple comorbidities. Rest of plan per hospitalist and other consultants. Thank you Dr. Vidal for allowing me to participate in this patient's care. Further recommendations will depend on patient's clinical course. Please do not hesitate to contact me if you have any questions or concerns. This medical document was created using an electronic medical record system with [employer] computerized dictation system. Although this document has been carefully reviewed, there may still be some phonetic and typographical errors. These areas are purely typographical due to imperfections of the software programs, and do not reflect any compromise in the patient's medical care. Plan discussed with: Patient, Other (KIKI Sellersi) TRICIA PRICE MD Aug 09, 2024 22:55
[2024-08-10] VITALS (8 sets, daily range): BP systolic 123–145; BP diastolic 67–81; PULSE 52–92; RESP 14–20; TEMP 97.7–98.4; O2SAT 65–98
--- NOTE | 2024-08-10 08:13 | DVHPN2 ---
Progress Note - Dictate Date Seen: Aug 10, 2024 Medical Necessity Reason Pt with a Central, PICC or Fol: No Subjective Patient seen and examined at the bedside. Chart reviewed. vital signs Vital Sign Date Time Temp Pulse Resp B/P (MAP) Pulse Ox O2 Delivery O2 Flow Rate FiO2 08/10/24 05:44 98.1 57 18 145/81 (102) 94 98.1 08/09/24 20:00 Nasal Cannula* 2 28 Total Intake and Output 08/09/24 08/09/24 08/10/24 15:00 23:00 07:00 Intake Total 400 ml 1250 ml 600 ml Output Total 2 ml Balance 400 ml 1248 ml 600 ml medications Current Medications Medications Dose Ordered Sig/Robi Route Start Time Stop Time Status Last Admin Dose Admin Hydralazine HCl 20 mg TID PO 08/05/24 14:00 08/10/24 05:42 20 MG Atorvastatin Calcium 40 mg HS PO 08/05/24 22:00 08/09/24 21:02 40 MG Carvedilol 6.25 mg Q12HR PO 08/05/24 22:00 08/05/24 22:09 6.25 MG Lisinopril 5 mg DAILY PO 08/06/24 10:00 08/09/24 09:21 5 MG Acetaminophen 650 mg Q6HP PRN PO 08/05/24 12:45 08/09/24 21:08 650 MG Zolpidem Tartrate 5 mg QHSP PRN PO 08/05/24 12:45 08/07/24 22:29 5 MG Docusate Sodium 100 mg DAILY PO 08/06/24 10:00 08/09/24 09:20 100 MG Ondansetron HCl 4 mg Q4HP PRN IV 08/05/24 12:45 Nitroglycerin 0.4 mg Q5MINP PRN SL 08/05/24 12:45 Morphine Sulfate 2 mg Q30M PRN IV 08/05/24 12:45 08/08/24 05:22 2 MG Dextrose 50 ml UD PRN IV 08/05/24 12:45 08/05/24 20:54 50 ML Apixaban 2.5 mg BID PO 08/06/24 22:00 08/09/24 21:04 2.5 MG laboratory and microbiology Laboratory Tests 08/06/24 05:11 Test 08/06/24 05:11 Range/Units Serum Glucose 86 74-106 mg/dL Assessment/Plan Assessment/Plan Patient is a 84-year-old female who presented with chest discomfort. Chest discomfort started around 10 days ago accompanied with cough/congestion/occasional nosebleed. She has been on antibiotics (Augmentin) for URI. She did have occasional diarrhea also. She is known to our practice from outside. Cardiology is involved for cardiac aspects of care. No JVD. Mucosa is pink and wet. No carotid bruit. Chest: Scattered rhonchi. No rales. Cardiac: Regular, no thrill/gallop. Systolic murmur 2/6 in apex is heard. Abdomen is soft. Extremities do not reveal edema. PMH includes hypertension, obesity, hyperlipidemia, paroxysmal a-fib (on Eliquis/digoxin), peripheral neuropathy, Emphysema, Pulmonary hypertension, diverticulosis, degenerative disc disease of the cervical spine, GERD, valvular heart disease, moderate to severe TR, diverticulosis, kyphosis, spondylosis, hiatal hernia and liver cyst. Had hysterectomy years ago. Quit smoking years ago. No drug/alcohol abuse. Had Cardiac cath ([facility]) in 2009: normal coronaries. Had Cardiac Cath ([facility]) in 2019: Normal coronaries and pulmonary hypertension. Echo (office) of : EF of 65 to 70%, mild to moderate TR, moderate pulmonary hypertension Echocardiogram in 2020 revealed ejection fraction of 71%, left ventricle hypertrophy, mild TR, trace MR and right ventricular systolic pressure of 69 mmHg Echocardiogram of March 01, 2022 (performed the office) revealed LVH, LVEF of 60 to 65%, pseudo normal LV filling, moderate right atrial enlargement, aortic sclerosis, moderate to severe TR and right ventricular systolic pressure of 70 mmHg Echocardiogram of September 07, 2023 had revealed mild concentric left ventricular hypertrophy, ejection fraction of 60%, moderate biatrial enlargement, moderate TR and right ventricular systolic pressure of 43 mm Hg Echocardiogram of February 22, 2024 revealed ejection fraction 55%, biatrial enlargement, aortic sclerosis with no stenosis, mitral annular calcification, trace MR, mild TR and right ventricular systolic pressure 41 mm Hg Nuclear stress test of April 23, 2024 (performed in the office) revealed normal perfusion, ejection fraction of 77% WBC: 4.8 - 5.1 Hemoglobin: 12.8 - 11.9 Creatinine: 1.02 - 0.90 Potassium: 4.2 - 4.2 Troponin (high sensitive): 15 - 15 - 13 BNP: 45.95 TSH: 3.07 Chest x-ray revealed: 1. Cardiomegaly. No acute cardiopulmonary pathology. EKG revealed sinus rhythm Patient is a 84-year-old female who presented with 1 week of chest discomfort/cough/congestion/nosebleed. Presentation is not in favor of acute coronary syndrome. URI is considered. It is of note that the patient does have history of atrial fibrillation/flutter as outpatient and usually is on Eliquis. Has been having repeated nosebleed. We can decrease the dose of Eliquis at this point recognizing the bleedings. URI Diarrhea Atrial fibrillation/flutter, history of History of pulmonary hypertension Hyperlipidemia Hypertension Cardiac suggestion for management: Manage in tele Follow-up electrolytes and kidney function test and correct abnormalities. Keep potassium above 4 magnesium above 2 Full anticoagulation (on Eliquis): You can have the dose of 2.[address] of the chest without contrast Evaluation and management of URI as per primary team No ischemic workup indicated Cardiac wellington, stable Further evaluation and management depends on the above and clinical course A total of 55 minutes was spent reviewing the patient record, examining the patient, making a diagnostic and therapeutic plan, discussing this plan with medical personnel, following up on diagnostic studies and following the patient for clinical stability excluding any and all procedures. At least 50% of this time was spent in direct, [id number] contact. Thank you for allowing me to participate in this patient's care. Further recommendations will depend on patient's clinical course. Please do not hesitate to contact me if you have any questions or concerns. Plan discussed with: Patient (Patient and Primary RN ) GERHEATHERYUMIKO PEDRAZA Aug 10, 2024 08:13
--- NOTE | 2024-08-10 14:08 | DVHPN2 ---
Eyes: No Pain, No Vision change, No Conjunctivae inflammation, No Eyelid inflammation, No Other, No Redness ENT: No Ear pain, No Ear discharge, No Nose pain, No Nose discharge, No Nose congestion, No Mouth pain, No Mouth swelling, No Throat pain, No Throat swelling, No Other Cardiovascular: Chest Pain, Palpitations; No Orthopnea, No Paroxysmal Noc. Dyspnea, No Edema, No Lt Headedness, No Other Respiratory: No Cough, No Dry, No Shortness of breath, No SOB with excertion, No Wheezing, No Hemoptysis, No Pleuritic Pain, No Sputum, No Other Gastrointestinal: No Nausea, No Vomiting, No Abdominal Pain, No Diarrhea, No Constipation, No Melena, No Hematochezia, No Other Musculoskeletal: No other, No neck pain, No shoulder pain, No arm pain, No back pain, No hand pain, No leg pain, No foot pain Skin: No Rash, No Lesions, No Jaundice, No Bruising, No Other Objective Vitals Vital Signs Date Time Temp Pulse Resp B/P (MAP) Pulse Ox O2 Delivery O2 Flow Rate FiO2 08/10/24 13:00 97.9 63 14 135/73 (93) 93 97.9 08/10/24 08:00 Nasal Cannula* 2 28 Intake/Output Intake and Output 08/10/24 07:00 Intake Total 2250 ml Output Total 2 ml Balance 2248 ml Intake Oral 2250 ml Stool Total 2 ml # Voids 5 # Bowel Movements 1 General Appearance: Alert, Oriented X3, Cooperative, No acute distress Lungs: Clear to auscultation, Normal air movement Cardiovascular: Regular rate, Normal S1, Normal S2 Abdomen: Normal bowel sounds, Soft, No tenderness Extremities: No edema Medications Current Medications Medications Dose Ordered Sig/Robi Route Start Time Stop Time Status Last Admin Dose Admin Hydralazine HCl 20 mg TID PO 08/05/24 14:00 08/10/24 05:42 20 MG Atorvastatin Calcium 40 mg HS PO 08/05/24 22:00 08/09/24 21:02 40 MG Carvedilol 6.25 mg Q12HR PO 08/05/24 22:00 08/05/24 22:09 6.25 MG Lisinopril 5 mg DAILY PO 08/06/24 10:00 08/10/24 09:11 5 MG Acetaminophen 650 mg Q6HP PRN PO 08/05/24 12:45 08/09/24 21:08 650 MG Zolpidem Tartrate 5 mg QHSP PRN PO 08/05/24 12:45 08/07/24 22:29 5 MG Docusate Sodium 100 mg DAILY PO 08/06/24 10:00 08/10/24 09:09 100 MG Ondansetron HCl 4 mg Q4HP PRN IV 08/05/24 12:45 Nitroglycerin 0.4 mg Q5MINP PRN SL 08/05/24 12:45 Morphine Sulfate 2 mg Q30M PRN IV 08/05/24 12:45 08/08/24 05:22 2 MG Dextrose 50 ml UD PRN IV 08/05/24 12:45 08/05/24 20:54 50 ML Apixaban 2.5 mg BID PO 08/06/24 22:00 08/10/24 09:10 2.5 MG Laboratory Results Laboratory Tests 08/06/24 05:11 Urinalysis Test 08/05/24 20:30 Urine Color Light-yellow (Yellow) Urine Clarity Clear (Clear) Urine pH 5.5 (5.0-9.0) Urine Specific Warner 1.015 (1.001-1.035) Urine Protein Negative (Negative) Urine Ketones Negative (Negative) Urine Blood Negative /uL (Negative) Urine Nitrite Negative (Negative) Urine Bilirubin Negative (Negative) Urine Urobilinogen Normal mg/dL (Negative) Urine Leukocyte Esterase Negative /uL (Negative) Urine RBC 3 /hpf (0 - 4) Urine WBC 1 /hpf (0 - 5) Urine Squamous Epithelial Cells Few /hpf (<5) Urine Bacteria None seen /hpf (None Seen) Urine Hyaline Casts Few /lpf (0 - 2) Urine Glucose 1+ mg/dL (Normal) DESHAUN ELIZALDE MD Aug 10, 2024 14:08
--- NOTE | 2024-08-10 23:42 | DVHPN2 ---
Progress Note - Dictate Date Seen: Aug 10, 2024 Medical Necessity Reason Pt with a Central, PICC or Fol: No Subjective Patient seen and examined at bedside. Remains on supplemental oxygen Overnight events reviewed. vital signs Vital Sign Date Time Temp Pulse Resp B/P (MAP) Pulse Ox O2 Delivery O2 Flow Rate FiO2 08/10/24 21:27 123/69 08/10/24 21:26 68 08/10/24 21:00 98.2 18 98 98.2 08/10/24 08:00 Nasal Cannula* 2 28 Total Intake and Output 08/09/24 08/09/24 08/10/24 15:00 23:00 07:00 Intake Total 400 ml 1250 ml 600 ml Output Total 2 ml Balance 400 ml 1248 ml 600 ml medications Current Medications Medications Dose Ordered Sig/Robi Route Start Time Stop Time Status Last Admin Dose Admin Hydralazine HCl 20 mg TID PO 08/05/24 14:00 08/10/24 21:27 20 MG Atorvastatin Calcium 40 mg HS PO 08/05/24 22:00 08/10/24 21:27 40 MG Carvedilol 6.25 mg Q12HR PO 08/05/24 22:00 08/10/24 21:26 6.25 MG Lisinopril 5 mg DAILY PO 08/06/24 10:00 08/10/24 09:11 5 MG Acetaminophen 650 mg Q6HP PRN PO 08/05/24 12:45 08/10/24 21:26 650 MG Zolpidem Tartrate 5 mg QHSP PRN PO 08/05/24 12:45 08/07/24 22:29 5 MG Docusate Sodium 100 mg DAILY PO 08/06/24 10:00 08/10/24 09:09 100 MG Ondansetron HCl 4 mg Q4HP PRN IV 08/05/24 12:45 Nitroglycerin 0.4 mg Q5MINP PRN SL 08/05/24 12:45 Morphine Sulfate 2 mg Q30M PRN IV 08/05/24 12:45 08/08/24 05:22 2 MG Dextrose 50 ml UD PRN IV 08/05/24 12:45 08/05/24 20:54 50 ML Apixaban 2.5 mg BID PO 08/06/24 22:00 08/10/24 21:26 2.5 MG objective Gen.: Patient lying in bed in no apparent distress. On supplemental oxygen. Head: Normocephalic, atraumatic. Eyes: EOMI/PERRLA. Ears: Normal hearing. Normal anatomy. Neck/trachea: Trachea midline, supple. Nose: Normal external anatomy. Mouth: Moist mucous membranes. Chest: Decreased air entry bilaterally. No wheezing or rhonchi. Cardiovascular: Positive S1, positive S2. Regular rate and rhythm. Abdomen: Positive bowel sounds in all 4 quadrants. Soft, non-tender, non- distended. : Deferred. Rectal: Deferred. Skin: Warm, dry. Intact. Extremities: 2+ radial pulses bilaterally. No lower extremity edema. Neuro: Awake, alert, oriented x3. No gross motor or sensory deficits. Cranial nerves II through XII intact. Gait not assessed. laboratory and microbiology Laboratory Tests 08/06/24 05:11 Test 08/06/24 05:11 Range/Units Serum Glucose 86 74-106 mg/dL Assessment/Plan Impression: Chest pain rule out ACS Atrial fibrillation Epistasis Obesity with a BMI of 30 Ex-smoker Dyspnea on exertion Atelectasis Events: Remains on supplemental oxygen, 2 LPM NC Started humidifier for O2. Pt has received concentrator and portable O2. Recommend outpatient eval in pulmonary clinic for PFTs Incentive spirometry Continue antihypertensive medication. Eliquis for atrial fibrillation Patient is stable for discharge from the pulmonary standpoint. Disposition per hospitalist. Recommend pulmonary function tests as outpatient. Get echocardiogram from Dr. Hernandez. Consider outpatient Echo. Labs and imaging reviewed. Rest of plan as noted below. Plan: Chest x-ray imaging report reviewed. Cardiomegaly. No acute opacities. Follow up CT chest images and report. Supplemental oxygen keep O2 saturation above 92%. On 2 liters/minute via nasal cannula On Eliquis for atrial fibrillation Coreg /SUSAN inhibitor - on hold Hydralazine for BP control On statin Incentive spirometry for atelectasis. Accu-Cheks, insulin sliding scale PRN. Diet and lifestyle modifications for weight reduction given obesity. Obesity complicates all care. Recommend outpatient follow up for pulmonary function tests and 6 minute walk test. Cardiology recommendations appreciated. DVT prophylaxis-on Eliquis Prognosis: Guarded given multiple comorbidities. Rest of plan per hospitalist and other consultants. Thank you Dr. Vidal for allowing me to participate in this patient's care. Further recommendations will depend on patient's clinical course. Please do not hesitate to contact me if you have any questions or concerns. This medical document was created using an electronic medical record system with [employer] dictation system. Although this document has been carefully reviewed, there may still be some phonetic and typographical errors. These areas are purely typographical due to imperfections of the software programs, and do not reflect any compromise in the patient's medical care. Plan discussed with: Patient, Other (KIKI Zuñiga) TRICIA PRICE MD Aug 10, 2024 23:42
[2024-08-11] VITALS (7 sets, daily range): BP systolic 109–138; BP diastolic 59–78; PULSE 48–61; RESP 16–18; TEMP 97.5–98.5; O2SAT 91–100
--- NOTE | 2024-08-11 07:09 | DVHPN2 ---
Progress Note - Dictate Date Seen: Aug 11, 2024 Medical Necessity Reason Pt with a Central, PICC or Fol: No Subjective Patient seen and examined at the bedside. Chart reviewed. vital signs Vital Sign Date Time Temp Pulse Resp B/P (MAP) Pulse Ox O2 Delivery O2 Flow Rate FiO2 08/11/24 06:08 138/67 08/11/24 05:00 97.9 49 17 100 97.9 08/10/24 20:00 Nasal Cannula* 2 28 Total Intake and Output 08/10/24 08/10/24 08/11/24 15:00 23:00 07:00 Intake Total 450 ml 900 ml 700 ml Output Total 1 ml Balance 450 ml 899 ml 700 ml medications Current Medications Medications Dose Ordered Sig/Robi Route Start Time Stop Time Status Last Admin Dose Admin Hydralazine HCl 20 mg TID PO 08/05/24 14:00 08/11/24 06:08 20 MG Atorvastatin Calcium 40 mg HS PO 08/05/24 22:00 08/10/24 21:27 40 MG Carvedilol 6.25 mg Q12HR PO 08/05/24 22:00 08/10/24 21:26 6.25 MG Lisinopril 5 mg DAILY PO 08/06/24 10:00 08/10/24 09:11 5 MG Acetaminophen 650 mg Q6HP PRN PO 08/05/24 12:45 08/10/24 21:26 650 MG Zolpidem Tartrate 5 mg QHSP PRN PO 08/05/24 12:45 08/07/24 22:29 5 MG Docusate Sodium 100 mg DAILY PO 08/06/24 10:00 08/10/24 09:09 100 MG Ondansetron HCl 4 mg Q4HP PRN IV 08/05/24 12:45 Nitroglycerin 0.4 mg Q5MINP PRN SL 08/05/24 12:45 Morphine Sulfate 2 mg Q30M PRN IV 08/05/24 12:45 08/08/24 05:22 2 MG Dextrose 50 ml UD PRN IV 08/05/24 12:45 08/05/24 20:54 50 ML Apixaban 2.5 mg BID PO 08/06/24 22:00 08/10/24 21:26 2.5 MG laboratory and microbiology Laboratory Tests 08/06/24 05:11 Test 08/06/24 05:11 Range/Units Serum Glucose 86 74-106 mg/dL Assessment/Plan Assessment/Plan Patient is a 84-year-old female who presented with chest discomfort. Chest discomfort started around 10 days ago accompanied with cough/congestion/occasional nosebleed. She has been on antibiotics (Augmentin) for URI. She did have occasional diarrhea also. She is known to our practice from outside. Cardiology is involved for cardiac aspects of care. No JVD. Mucosa is pink and wet. No carotid bruit. Chest: Scattered rhonchi. No rales. Cardiac: Regular, no thrill/gallop. Systolic murmur 2/6 in apex is heard. Abdomen is soft. Extremities do not reveal edema. PMH includes hypertension, obesity, hyperlipidemia, paroxysmal a-fib (on Eliquis/digoxin), peripheral neuropathy, Emphysema, Pulmonary hypertension, diverticulosis, degenerative disc disease of the cervical spine, GERD, valvular heart disease, moderate to severe TR, diverticulosis, kyphosis, spondylosis, hiatal hernia and liver cyst. Had hysterectomy years ago. Quit smoking years ago. No drug/alcohol abuse. Had Cardiac cath ([facility]) in 2009: normal coronaries. Had Cardiac Cath ([facility]) in 2019: Normal coronaries and pulmonary hypertension. Echo (office) of : EF of 65 to 70%, mild to moderate TR, moderate pulmonary hypertension Echocardiogram in 2020 revealed ejection fraction of 71%, left ventricle hypertrophy, mild TR, trace MR and right ventricular systolic pressure of 69 mmHg Echocardiogram of March 01, 2022 (performed the office) revealed LVH, LVEF of 60 to 65%, pseudo normal LV filling, moderate right atrial enlargement, aortic sclerosis, moderate to severe TR and right ventricular systolic pressure of 70 mmHg Echocardiogram of September 07, 2023 had revealed mild concentric left ventricular hypertrophy, ejection fraction of 60%, moderate biatrial enlargement, moderate TR and right ventricular systolic pressure of 43 mm Hg Echocardiogram of February 22, 2024 revealed ejection fraction 55%, biatrial enlargement, aortic sclerosis with no stenosis, mitral annular calcification, trace MR, mild TR and right ventricular systolic pressure 41 mm Hg Nuclear stress test of April 23, 2024 (performed in the office) revealed normal perfusion, ejection fraction of 77% WBC: 4.8 - 5.1 Hemoglobin: 12.8 - 11.9 Creatinine: 1.02 - 0.90 Potassium: 4.2 - 4.2 Troponin (high sensitive): 15 - 15 - 13 BNP: 45.95 TSH: 3.07 Chest x-ray revealed: 1. Cardiomegaly. No acute cardiopulmonary pathology. EKG revealed sinus rhythm Patient is a 84-year-old female who presented with 1 week of chest discomfort/cough/congestion/nosebleed. Presentation is not in favor of acute coronary syndrome. URI is considered. It is of note that the patient does have history of atrial fibrillation/flutter as outpatient and usually is on Eliquis. Has been having repeated nosebleed. We can decrease the dose of Eliquis at this point recognizing the bleedings. URI Diarrhea Atrial fibrillation/flutter, history of History of pulmonary hypertension Hyperlipidemia Hypertension Cardiac suggestion for management: Manage in tele Follow-up electrolytes and kidney function test and correct abnormalities. Keep potassium above 4 magnesium above 2 Full anticoagulation (on Eliquis): You can have the dose of 2.[address] of the chest without contrast Evaluation and management of URI as per primary team No ischemic workup indicated Cardiac well[place], stable Further evaluation and management depends on the above and clinical course A total of 55 minutes was spent reviewing the patient record, examining the patient, making a diagnostic and therapeutic plan, discussing this plan with medical personnel, following up on diagnostic studies and following the patient for clinical stability excluding any and all procedures. At least 50% of this time was spent in direct, [id number] contact. Thank you for allowing me to participate in this patient's care. Further recommendations will depend on patient's clinical course. Please do not hesitate to contact me if you have any questions or concerns. Plan discussed with: Patient (Patient and Primary RN ) HEATHER CYR Aug 11, 2024 07:09
--- NOTE | 2024-08-11 08:32 | DVHPN2 ---
Eyes: No Pain, No Vision change, No Conjunctivae inflammation, No Eyelid inflammation, No Other, No Redness ENT: No Ear pain, No Ear discharge, No Nose pain, No Nose discharge, No Nose congestion, No Mouth pain, No Mouth swelling, No Throat pain, No Throat swelling, No Other Cardiovascular: Chest Pain, Palpitations; No Orthopnea, No Paroxysmal Noc. Dyspnea, No Edema, No Lt Headedness, No Other Respiratory: No Cough, No Dry, No Shortness of breath, No SOB with excertion, No Wheezing, No Hemoptysis, No Pleuritic Pain, No Sputum, No Other Gastrointestinal: No Nausea, No Vomiting, No Abdominal Pain, No Diarrhea, No Constipation, No Melena, No Hematochezia, No Other Musculoskeletal: No other, No neck pain, No shoulder pain, No arm pain, No back pain, No hand pain, No leg pain, No foot pain Skin: No Rash, No Lesions, No Jaundice, No Bruising, No Other Objective Vitals Vital Signs Date Time Temp Pulse Resp B/P (MAP) Pulse Ox O2 Delivery O2 Flow Rate FiO2 08/11/24 06:08 138/67 08/11/24 05:00 97.9 49 17 100 97.9 08/10/24 20:00 Nasal Cannula* 2 28 Intake/Output Intake and Output 08/11/24 07:00 Intake Total 2050 ml Output Total 1 ml Balance 2049 ml Intake Oral 2050 ml Stool Total 1 ml # Voids 5 # Bowel Movements 1 General Appearance: Alert, Oriented X3, Cooperative, No acute distress Lungs: Clear to auscultation, Normal air movement Cardiovascular: Regular rate, Normal S1, Normal S2 Abdomen: Normal bowel sounds, Soft, No tenderness Extremities: No edema Medications Current Medications Medications Dose Ordered Sig/Robi Route Start Time Stop Time Status Last Admin Dose Admin Hydralazine HCl 20 mg TID PO 08/05/24 14:00 08/11/24 06:08 20 MG Atorvastatin Calcium 40 mg HS PO 08/05/24 22:00 08/10/24 21:27 40 MG Carvedilol 6.25 mg Q12HR PO 08/05/24 22:00 08/10/24 21:26 6.25 MG Lisinopril 5 mg DAILY PO 08/06/24 10:00 08/10/24 09:11 5 MG Acetaminophen 650 mg Q6HP PRN PO 08/05/24 12:45 08/10/24 21:26 650 MG Zolpidem Tartrate 5 mg QHSP PRN PO 08/05/24 12:45 08/07/24 22:29 5 MG Docusate Sodium 100 mg DAILY PO 08/06/24 10:00 08/10/24 09:09 100 MG Ondansetron HCl 4 mg Q4HP PRN IV 08/05/24 12:45 Nitroglycerin 0.4 mg Q5MINP PRN SL 08/05/24 12:45 Morphine Sulfate 2 mg Q30M PRN IV 08/05/24 12:45 08/08/24 05:22 2 MG Dextrose 50 ml UD PRN IV 08/05/24 12:45 08/05/24 20:54 50 ML Apixaban 2.5 mg BID PO 08/06/24 22:00 08/10/24 21:26 2.5 MG Laboratory Results Laboratory Tests 08/06/24 05:11 Urinalysis Test 08/05/24 20:30 Urine Color Light-yellow (Yellow) Urine Clarity Clear (Clear) Urine pH 5.5 (5.0-9.0) Urine Specific [place] 1.015 (1.001-1.035) Urine Protein Negative (Negative) Urine Ketones Negative (Negative) Urine Blood Negative /uL (Negative) Urine Nitrite Negative (Negative) Urine Bilirubin Negative (Negative) Urine Urobilinogen Normal mg/dL (Negative) Urine Leukocyte Esterase Negative /uL (Negative) Urine RBC 3 /hpf (0 - 4) Urine WBC 1 /hpf (0 - 5) Urine Squamous Epithelial Cells Few /hpf (<5) Urine Bacteria None seen /hpf (None Seen) Urine Hyaline Casts Few /lpf (0 - 2) Urine Glucose 1+ mg/dL (Normal) DESHAUN ELIZALDE MD Aug 11, 2024 08:32
--- NOTE | 2024-08-11 09:08 | ECG ---
[facility] Test Date: 2024-08-08 Test Time: 05:34:02 Pat Name: LIEZTTE PATEL Department: Respiratoy Room: [address] [place] [address] 3 Gender: F Gate Keeper: : 1940 Requested By: LEXUS DELATORRE Order Number: [id number] Reading MD: Kian Lujan Measurements Intervals [place] Rate: 47 P: 34 [place]: 199 QRS: -54 QRSD: 91 T: 50 QT: 452 QTc: 400 Interpretive Statements Sinus rhythm Atrial premature complexes Inferior infarct, old Baseline wander in lead(s) V6 Electronically Signed On 08-12-2024 9:08:44 PST by Kian Lujan Please click the below link to view image of tracing.
[2024-08-11] MEDS: guaiFENesin-DM 100/10mg/5ml SYR PO PRN (17:47)
[2024-08-11] MEDS: CARVEDILOL 3.125 MG TAB PO SCH (21:13)
--- NOTE | 2024-08-11 23:29 | DVHPN2 ---
Progress Note - Dictate Date Seen: Aug 11, 2024 Medical Necessity Reason Pt with a Central, PICC or Fol: No Subjective Patient seen and examined at bedside. Remains on supplemental oxygen Overnight events reviewed. vital signs Vital Sign Date Time Temp Pulse Resp B/P (MAP) Pulse Ox O2 Delivery O2 Flow Rate FiO2 08/11/24 21:13 55 122/78 08/11/24 21:00 97.8 18 96 97.8 08/11/24 08:00 Nasal Cannula* 2 28 Total Intake and Output 08/10/24 08/10/24 08/11/24 15:00 23:00 07:00 Intake Total 450 ml 900 ml 700 ml Output Total 1 ml Balance 450 ml 899 ml 700 ml medications Current Medications Medications Dose Ordered Sig/Robi Route Start Time Stop Time Status Last Admin Dose Admin Hydralazine HCl 20 mg TID PO 08/05/24 14:00 08/11/24 21:13 20 MG Atorvastatin Calcium 40 mg HS PO 08/05/24 22:00 08/11/24 21:14 40 MG Lisinopril 5 mg DAILY PO 08/06/24 10:00 08/11/24 11:54 5 MG Acetaminophen 650 mg Q6HP PRN PO 08/05/24 12:45 08/11/24 21:11 650 MG Zolpidem Tartrate 5 mg QHSP PRN PO 08/05/24 12:45 08/07/24 22:29 5 MG Docusate Sodium 100 mg DAILY PO 08/06/24 10:00 08/11/24 11:54 100 MG Ondansetron HCl 4 mg Q4HP PRN IV 08/05/24 12:45 Nitroglycerin 0.4 mg Q5MINP PRN SL 08/05/24 12:45 Morphine Sulfate 2 mg Q30M PRN IV 08/05/24 12:45 08/08/24 05:22 2 MG Dextrose 50 ml UD PRN IV 08/05/24 12:45 08/05/24 20:54 50 ML Apixaban 2.5 mg BID PO 08/06/24 22:00 08/11/24 21:13 2.5 MG Guaifenesin/ Dextromethorphan 10 ml Q4HP PRN PO 08/11/24 12:00 08/11/24 17:47 10 ML Carvedilol 3.125 mg Q12HR PO 08/11/24 22:00 08/11/24 21:13 3.125 MG objective Gen.: Patient lying in bed in no apparent distress. On supplemental oxygen. Head: Normocephalic, atraumatic. Eyes: EOMI/PERRLA. Ears: Normal hearing. Normal anatomy. Neck/trachea: Trachea midline, supple. Nose: Normal external anatomy. Mouth: Moist mucous membranes. Chest: Decreased air entry bilaterally. No wheezing or rhonchi. Cardiovascular: Positive S1, positive S2. Regular rate and rhythm. Abdomen: Positive bowel sounds in all 4 quadrants. Soft, non-tender, non- distended. : Deferred. Rectal: Deferred. Skin: Warm, dry. Intact. Extremities: 2+ radial pulses bilaterally. No lower extremity edema. Neuro: Awake, alert, oriented x3. No gross motor or sensory deficits. Cranial nerves II through XII intact. Gait not assessed. laboratory and microbiology Laboratory Tests 08/06/24 05:11 Test 08/06/24 05:11 Range/Units Serum Glucose 86 74-106 mg/dL Assessment/Plan Impression: Chest pain rule out ACS Atrial fibrillation Epistasis Obesity with a BMI of 30 Ex-smoker Dyspnea on exertion Atelectasis Events: Remains on supplemental oxygen, 2 LPM NC Started humidifier for O2. Arranged for home O2- Pt has received concentrator and portable O2. Recommend outpatient eval in pulmonary clinic for PFTs Incentive spirometry Antitussive PRN cough. Continue antihypertensive medication. Eliquis for atrial fibrillation Patient is stable for discharge from the pulmonary standpoint. Disposition per hospitalist. Recommend pulmonary function tests as outpatient. Get echocardiogram from Dr. Hernandez. Consider outpatient Echo. Labs and imaging reviewed. Rest of plan as noted below. Plan: Chest x-ray imaging report reviewed. Cardiomegaly. No acute opacities. Follow up CT chest images and report. Supplemental oxygen keep O2 saturation above 92%. On 2 liters/minute via nasal cannula On Eliquis for atrial fibrillation Coreg /SUSAN inhibitor - on hold Hydralazine for BP control On statin Incentive spirometry for atelectasis. Accu-Cheks, insulin sliding scale PRN. Diet and lifestyle modifications for weight reduction given obesity. Obesity complicates all care. Recommend outpatient follow up for pulmonary function tests and 6 minute walk test. Cardiology recommendations appreciated. DVT prophylaxis-on Eliquis Prognosis: Guarded given multiple comorbidities. Rest of plan per hospitalist and other consultants. Thank you Dr. Vidal for allowing me to participate in this patient's care. Further recommendations will depend on patient's clinical course. Please do not hesitate to contact me if you have any questions or concerns. This medical document was created using an electronic medical record system with [employer] dictation system. Although this document has been carefully reviewed, there may still be some phonetic and typographical errors. These areas are purely typographical due to imperfections of the software programs, and do not reflect any compromise in the patient's medical care. Dietary Evaluation Review Comments: 1) Continue current plan of care Expected Outcomes/Goals: F/U in 3-5 days Plan discussed with: Patient, Other (RN) TRICIA PRICE MD Aug 11, 2024 23:29
[2024-08-12 00:51] VITALS: BP 108/53; PULSE 45; RESP 18; TEMP 99.1; O2SAT 98
[2024-08-12 04:49] VITALS: BP 116/44; PULSE 42; RESP 19; TEMP 98; O2SAT 99
[2024-08-12 08:00] VITALS: PULSE 47; PULSE 54
[2024-08-12 09:01] VITALS: BP 139/77; PULSE 55; RESP 16; TEMP 97.5; O2SAT 100
--- NOTE | 2024-08-12 10:56 | DVHPN2 ---
Progress Note - Dictate Date Seen: Aug 12, 2024 Medical Necessity Reason Pt with a Central, PICC or Fol: No Subjective Patient seen and evaluated in telemetry. NAD noted. No labs today. VSS. Pt remains cardiac stable. No changes in cardiac management. She is cleared for discharge from cardiac perspective. Chart reviewed. vital signs Vital Sign Date Time Temp Pulse Resp B/P (MAP) Pulse Ox O2 Delivery O2 Flow Rate FiO2 08/12/24 09:35 55 139/79 08/12/24 09:01 97.5 16 100 97.5 08/12/24 08:00 Nasal Cannula* 2 28 Total Intake and Output 08/11/24 08/11/24 08/12/24 15:00 23:00 07:00 Intake Total 200 ml 680 ml 650 ml Balance 200 ml 680 ml 650 ml medications Current Medications Medications Dose Ordered Sig/Robi Route Start Time Stop Time Status Last Admin Dose Admin Hydralazine HCl 20 mg TID PO 08/05/24 14:00 08/12/24 05:28 20 MG Atorvastatin Calcium 40 mg HS PO 08/05/24 22:00 08/11/24 21:14 40 MG Lisinopril 5 mg DAILY PO 08/06/24 10:00 08/12/24 09:34 5 MG Acetaminophen 650 mg Q6HP PRN PO 08/05/24 12:45 08/11/24 21:11 650 MG Zolpidem Tartrate 5 mg QHSP PRN PO 08/05/24 12:45 08/07/24 22:29 5 MG Docusate Sodium 100 mg DAILY PO 08/06/24 10:00 08/12/24 09:34 100 MG Ondansetron HCl 4 mg Q4HP PRN IV 08/05/24 12:45 Nitroglycerin 0.4 mg Q5MINP PRN SL 08/05/24 12:45 Morphine Sulfate 2 mg Q30M PRN IV 08/05/24 12:45 08/08/24 05:22 2 MG Dextrose 50 ml UD PRN IV 08/05/24 12:45 08/05/24 20:54 50 ML Apixaban 2.5 mg BID PO 08/06/24 22:00 08/12/24 09:34 2.5 MG Guaifenesin/ Dextromethorphan 10 ml Q4HP PRN PO 08/11/24 12:00 08/11/24 17:47 10 ML Carvedilol 3.125 mg Q12HR PO 08/11/24 22:00 08/12/24 09:35 3.125 MG laboratory and microbiology Laboratory Tests 08/06/24 05:11 Test 08/06/24 05:11 Range/Units Serum Glucose 86 74-106 mg/dL Assessment/Plan Patient is a 84-year-old female who presented with chest discomfort. Chest discomfort started around 10 days ago accompanied with cough/congestion/occasional nosebleed. She has been on antibiotics (Augmentin) for URI. She did have occasional diarrhea also. She is known to our practice from outside. Cardiology is involved for cardiac aspects of care. No JVD. Mucosa is pink and wet. No carotid bruit. Chest: Scattered rhonchi. No rales. Cardiac: Regular, no thrill/gallop. Systolic murmur 2/6 in apex is heard. Abdomen is soft. Extremities do not reveal edema. PMH includes hypertension, obesity, hyperlipidemia, paroxysmal a-fib (on Eliquis/digoxin), peripheral neuropathy, Emphysema, Pulmonary hypertension, diverticulosis, degenerative disc disease of the cervical spine, GERD, valvular heart disease, moderate to severe TR, diverticulosis, kyphosis, spondylosis, hiatal hernia and liver cyst. Had hysterectomy years ago. Quit smoking years ago. No drug/alcohol abuse. Had Cardiac cath ([facility]) in 2009: normal coronaries. Had Cardiac Cath ([facility] [place]) in 2019: Normal coronaries and pulmonary hypertension. Echo (office) of : EF of 65 to 70%, mild to moderate TR, moderate pulmonary hypertension Echocardiogram in 2020 revealed ejection fraction of 71%, left ventricle hypertrophy, mild TR, trace MR and right ventricular systolic pressure of 69 mmHg Echocardiogram of March 01, 2022 (performed the office) revealed LVH, LVEF of 60 to 65%, pseudo normal LV filling, moderate right atrial enlargement, aortic sclerosis, moderate to severe TR and right ventricular systolic pressure of 70 mmHg Echocardiogram of September 07, 2023 had revealed mild concentric left ventricular hypertrophy, ejection fraction of 60%, moderate biatrial enlargement, moderate TR and right ventricular systolic pressure of 43 mm Hg Echocardiogram of February 22, 2024 revealed ejection fraction 55%, biatrial enlargement, aortic sclerosis with no stenosis, mitral annular calcification, trace MR, mild TR and right ventricular systolic pressure 41 mm Hg Nuclear stress test of April 23, 2024 (performed in the office) revealed normal perfusion, ejection fraction of 77% WBC: 4.8 - 5.1 Hemoglobin: 12.8 - 11.9 Creatinine: 1.02 - 0.90 Potassium: 4.2 - 4.2 Troponin (high sensitive): 15 - 15 - 13 BNP: 45.95 TSH: 3.07 Chest x-ray revealed: 1. Cardiomegaly. No acute cardiopulmonary pathology. EKG revealed sinus rhythm Patient is a 84-year-old female who presented with 1 week of chest discomfort/cough/congestion/nosebleed. Presentation is not in favor of acute coronary syndrome. URI is considered. It is of note that the patient does have history of atrial fibrillation/flutter as outpatient and usually is on Eliquis. Has been having repeated nosebleed. We can decrease the dose of Eliquis at this point recognizing the bleedings. URI Diarrhea Atrial fibrillation/flutter, history of History of pulmonary hypertension Hyperlipidemia Hypertension Cardiac suggestion for management: Manage in tele Follow-up electrolytes and kidney function test and correct abnormalities. Keep potassium above 4 magnesium above 2 Full anticoagulation (on Eliquis): You can have the dose of 2.[address] of the chest without contrast- results remain unavailable in EMR Evaluation and management of URI as per primary team No ischemic workup indicated Cardiac [place], stable Further evaluation and management depends on the above and clinical course A total of 55 minutes was spent reviewing the patient record, examining the patient, making a diagnostic and therapeutic plan, discussing this plan with medical personnel, following up on diagnostic studies and following the patient for clinical stability excluding any and all procedures. At least 50% of this time was spent in direct, [id number] contact. Thank you for allowing me to participate in this patient's care. Further recommendations will depend on patient's clinical course. Please do not hesitate to contact me if you have any questions or concerns. Dietary Evaluation Review Comments: 1) Continue current plan of care Expected Outcomes/Goals: F/U in 3-5 days Plan discussed with: Patient, Other (RN) Provider Statement: I have reviewed the case with my supervising physician. We have agreed with the plan of care. ADALID JANG Aug 12, 2024 10:56
[2024-08-12 13:00] VITALS: BP 110/67; PULSE 51; RESP 17; TEMP 97.6; O2SAT 92
--- NOTE | 2024-08-12 14:03 | DVHDS2 ---
Discharge Summary Date of Admission Aug 05, 2024 at 12:31 Date of Discharge: Aug 12, 2024 Labs/Diagnostic Data: Laboratory Results Test 08/07/24 15:21 08/06/24 08:07 08/06/24 05:11 08/05/24 20:30 Blood Gas Specimen Type Arterial Blood Gas Sample Site Right radial Blood Gas Patient Temperature 37.0 Arterial Blood Date Drawn [id number] Arterial Blood pH 7.416 (7.350-7.450) Arterial Blood Partial Pressure CO2 42.7 mmHg (32.0-45.0) Arterial Blood Partial Pressure O2 52.3 mmHg (83.0-108.0) Arterial Blood HCO3 26.8 mmol/L (21.0-28.0) Arterial Blood Oxygen Saturation 87.3 % (94.0-98.0) Arterial Blood Base Excess 2.0 mmol/L (-2.0-3.0) Arterial Blood Oxyhemoglobin 85.8 % (94.0-98.0) Arterial Blood Carboxyhemoglobin 1.3 % (0.5-1.5) Arterial Blood Methemoglobin 0.4 % (0.0-1.5) Kenn Test Yes Blood Gas Total Hemoglobin 12.70 g/dL (12.0-16.0) Blood Gas Liter Flow 0.00 Blood Gas Modality Room air FiO2 % 21.0 Blood Gas Critical Value Read Back Yes Blood Gas Notified Whom Young hoyt. Blood Gas Notified Time [id number] Blood Gas Notified By Juan wright rrt POC Glucose 81 mg/dl (70-106) White Blood Count 5.1 10^3/uL (4.4-10.8) Red Blood Count 3.89 10^6/uL (4.0-5.20) Hemoglobin 11.9 g/dL (12.2-16.2) Hematocrit 35.5 % (36.0-46.0) Mean Corpuscular Volume 91.1 fL (80.0-100.0) Mean Corpuscular Hemoglobin 30.6 pg (28.0-32.0) Mean Corpuscular Hemoglobin Concent 33.6 g/dL (32.0-36.0) Red Cell Distribution Width 17.5 % (11.8-14.3) Platelet Count 144 10^3/uL (140-450) Mean Platelet Volume 8.6 fL (6.9-10.8) Neutrophils (%) (Auto) % (37.0-80.0) Lymphocytes (%) (Auto) % (10.0-50.0) Monocytes (%) (Auto) % (0.0-12.0) Basophils (%) (Auto) % (0.0-2.0) Neutrophils # (Auto) 10 ^3/uL (1.6-8.6) Lymphocytes # (Auto) 10 ^3/uL (0.4-5.4) Monocytes # (Auto) 10 ^3/uL (0-1.3) Differential Total Cells Counted 100.0 (100) Neutrophils % (Manual) 47 (37.0-80.0) Band Neutrophils % (Manual) 0 Lymphocytes % (Manual) 24 (10.0-50.0) Monocytes % (Manual) 22 (0-12) Eosinophils % (Manual) 7 (0-7) Basophils % (Manual) 0 (0.0-2.0) Metamyelocytes % (manual) 0 Myelocytes % (Manual) 0 Promyelocytes % (Manual) 0 Blast Cells % (Manual) 0 Reactive Lymphocytes 0 Platelet Estimate Decreased Sodium Level 141 mmol/L (136-145) Potassium Level 4.2 mmol/L (3.5-5.1) Chloride Level 108 mmol/L (98-107) Carbon Dioxide Level 27 mmol/L (20-31) Anion Gap 6 (5-15) Blood Urea Nitrogen 13 mg/dL (9-23) Creatinine 0.90 mg/dL (0.550-1.02) Glomerular Filtration Rate Calc 64 mL/min (>90) BUN/Creatinine Ratio 14.4 (10.0-20.0) Serum Glucose 86 mg/dL (74-106) Calcium Level 8.8 mg/dL (8.7-10.4) Urine Color Light-yellow (Yellow) Urine Clarity Clear (Clear) Urine pH 5.5 (5.0-9.0) Urine Specific [place] 1.015 (1.001-1.035) Urine Protein Negative (Negative) Urine Ketones Negative (Negative) Urine Blood Negative /uL (Negative) Urine Nitrite Negative (Negative) Urine Bilirubin Negative (Negative) Urine Urobilinogen Normal mg/dL (Negative) Urine Leukocyte Esterase Negative /uL (Negative) Urine RBC 3 /hpf (0 - 4) Urine WBC 1 /hpf (0 - 5) Urine Squamous Epithelial Cells Few /hpf (<5) Urine Bacteria None seen /hpf (None Seen) Urine Hyaline Casts Few /lpf (0 - 2) Urine Glucose 1+ mg/dL (Normal) Test 08/05/24 14:38 08/05/24 12:23 08/05/24 11:30 Troponin I High Sensitivity 13 ng/L (</=34) Magnesium Level 2.1 mg/dL (1.6-2.6) Thyroid Stimulating Hormone (TSH) 3.07 uIU/mL (0.55-4.78) Red Blood Cell Morphology Normal Prothrombin Time 11.3 sec (9.3-11.8) Prothrombin Time INR 1.07 (0.9-1.15) Activated Partial Thromboplast Time 28.8 SEC (24.5-34.5) Total Bilirubin 0.7 mg/dL (0.2-1.0) Aspartate Amino Transferase (AST) 16 U/L (13-40) Alanine Aminotransferase (ALT) 11 U/L (7-40) Alkaline Phosphatase 90 U/L (46-116) B-Type Natriuretic Peptide 45.95 pg/mL (0-100) Total Protein 7.4 g/dL (5.7-8.2) Albumin 4.0 g/dL (3.2-4.8) Other Laboratory Tests 08/06/24 05:11 Brief Hx & Hospital Course: Final diagnoses: Chest pain due to musculoskeletal origin Recent upper respiratory infection Hypertension Paroxysmal atrial fibrillation Hypoglycemia History of pulmonary hypertension Hyperlipidemia Hypoxemia Chronic respiratory failure 84-year-old female presented to the emergency room with chest pain, she is getting over a upper respiratory infection with cough and congestion and she had an antibiotic for the last 10 days She was ruled out for myocardial infarction Her pain was most likely musculoskeletal She has a normal echocardiogram recently in February of this year Cardiology cleared her Her pain resolved No pneumonia She remained hypoxic however and therefore she needed home O2 which was arranged over the weekend. She is doing well now. She is on 1-2 L nasal cannula Discharged home and use the oxygen from 1-2 L nasal cannula at home Follow up with the primary care physician as soon as possible Condition at Discharge: Stable Final Diagnosis/Problems List Chest pain, noncardiac, most likely musculoskeletal pain Recent upper respiratory infection Hypertension Paroxysmal atrial fibrillation Hypoglycemia History of pulmonary hypertension Hyperlipidemia Hypoxemia Chronic respiratory failure Discharge Disposition: Home SNF Discharge Will this Physician continue t: No Discharge Instruct/Medications Diet: Cardiac 2g Na,low cholest Activity: No Restrictions, As Tolerated Follow Up/Referral: PCP as Soon as possible Medications: Same home medications Discharge Statement: "Patient was advised to return to the ER or call 911 if any headaches, dizziness, shortness of breath, chest pain, abdominal pain, bleeding, fevers, or worsening of medical condition. Patient was counseled about treatment plan, medications, possible side effects, patientverbalized understanding. All questions were answered to the best of my ability. This discharge took greater then 30 minutes in planning, reviewing documentation, counseling the patient, and discussing with other team members." ASSESSMENT ASSESSMENT Assessment Chest pain, noncardiac, most likely musculoskeletal pain Recent upper respiratory infection Hypertension Paroxysmal atrial fibrillation Hypoglycemia History of pulmonary hypertension Hyperlipidemia Hypoxemia Chronic respiratory failure Date of Service: Aug 12, 2024 Billing Provider: ZHANE FELIX MD Common Visit Codes: 81144-UUI/OBS DISCH DAY >30min ZHANE FELIX MD Aug 12, 2024 14:03
--- NOTE | 2024-08-12 21:49 | DVHPN2 ---
Progress Note - Dictate Date Seen: Aug 12, 2024 Medical Necessity Reason Pt with a Central, PICC or Fol: No Subjective Patient seen and examined at bedside. Remains on supplemental oxygen Overnight events reviewed. vital signs Vital Sign Date Time Temp Pulse Resp B/P (MAP) Pulse Ox O2 Delivery O2 Flow Rate FiO2 08/12/24 14:00 110/61 08/12/24 13:00 97.6 51 17 92 97.6 08/12/24 08:00 Nasal Cannula* 2 28 Total Intake and Output 08/11/24 08/11/24 08/12/24 15:00 23:00 07:00 Intake Total 200 ml 680 ml 650 ml Balance 200 ml 680 ml 650 ml objective Gen.: Patient lying in bed in no apparent distress. On supplemental oxygen. Head: Normocephalic, atraumatic. Eyes: EOMI/PERRLA. Ears: Normal hearing. Normal anatomy. Neck/trachea: Trachea midline, supple. Nose: Normal external anatomy. Mouth: Moist mucous membranes. Chest: Decreased air entry bilaterally. No wheezing or rhonchi. Cardiovascular: Positive S1, positive S2. Regular rate and rhythm. Abdomen: Positive bowel sounds in all 4 quadrants. Soft, non-tender, non- distended. : Deferred. Rectal: Deferred. Skin: Warm, dry. Intact. Extremities: 2+ radial pulses bilaterally. No lower extremity edema. Neuro: Awake, alert, oriented x3. No gross motor or sensory deficits. Cranial nerves II through XII intact. Gait not assessed. laboratory and microbiology Laboratory Tests 08/06/24 05:11 Test 08/06/24 05:11 Range/Units Serum Glucose 86 74-106 mg/dL Assessment/Plan Impression: Chest pain rule out ACS Atrial fibrillation Epistasis Obesity with a BMI of 30 Ex-smoker Dyspnea on exertion Atelectasis Events: Remains on supplemental oxygen, 2 LPM NC Started humidifier for O2. Arranged for home O2- Pt has received concentrator and portable O2. Pt with episodes of epistaxis. Recommend outpatient eval in pulmonary clinic for PFTs Incentive spirometry Antitussive PRN cough. Continue antihypertensive medication. Eliquis for atrial fibrillation Patient is stable for discharge from the pulmonary standpoint. Disposition per hospitalist. Recommend pulmonary function tests as outpatient. Get echocardiogram from Dr. Hernandez. Consider outpatient Echo. Labs and imaging reviewed. Rest of plan as noted below. Plan: Chest x-ray imaging report reviewed. Cardiomegaly. No acute opacities. Follow up CT chest images and report. Supplemental oxygen keep O2 saturation above 92%. On 2 liters/minute via nasal cannula On Eliquis for atrial fibrillation Coreg /SUSAN inhibitor - on hold Hydralazine for BP control On statin Incentive spirometry for atelectasis. Accu-Cheks, insulin sliding scale PRN. Diet and lifestyle modifications for weight reduction given obesity. Obesity complicates all care. Recommend outpatient follow up for pulmonary function tests and 6 minute walk test. Cardiology recommendations appreciated. DVT prophylaxis-on Eliquis Prognosis: Guarded given multiple comorbidities. Rest of plan per hospitalist and other consultants. Thank you Dr. Vidal for allowing me to participate in this patient's care. Further recommendations will depend on patient's clinical course. Please do not hesitate to contact me if you have any questions or concerns. This medical document was created using an electronic medical record system with [employer] computerized dictation system. Although this document has been carefully reviewed, there may still be some phonetic and typographical errors. These areas are purely typographical due to imperfections of the software programs, and do not reflect any compromise in the patient's medical care. Dietary Evaluation Review Comments: 1) Continue current plan of care Expected Outcomes/Goals: F/U in 3-5 days Plan discussed with: Patient, Other ([place]) TRICIA PRICE MD Aug 12, 2024 21:49
== END 2024-08-12 16:42 | disposition home or self-care (01) | DRG 641 ==
LOC: ER 11:13 → EDUNIT# 12:31 → OVERFLOW 12:31 → EAST 21:22 → TELE-EAST 08-06 10:19 → TELE-E-ADS 08-09 21:00
PROVIDERS: ADMIT Hospitalist; ATTEND Internal Medicine Geriatric Medicine
DX: E16.2 Hypoglycemia, unspecified (principal); J98.11 Atelectasis; I48.92 Unspecified atrial flutter; J96.11 Chronic respiratory failure with hypoxia; R07.89 Other chest pain; I48.0 Paroxysmal atrial fibrillation; E78.5 Hyperlipidemia, unspecified; I10 Essential (primary) hypertension; R04.0 Epistaxis; E66.9 Obesity, unspecified; I07.1 Rheumatic tricuspid insufficiency; G62.9 Polyneuropathy, unspecified; J43.9 Emphysema, unspecified; K21.9 Gastro-esophageal reflux disease without esophagitis; Z82.49 Family history of ischemic heart disease and other diseases of the circulatory system; Z82.0 Family history of epilepsy and other diseases of the nervous system; Z68.30 Body mass index [BMI] 30.0-30.9, adult; Z79.01 Long term (current) use of anticoagulants; Z79.899 Other long term (current) drug therapy; Z87.891 Personal history of nicotine dependence; Z90.710 Acquired absence of both cervix and uterus
CPT/HCPCS: 36415; 36600; 71045; 80048; 80053; 81001; 82805; 82962; 83735; 83880; 84443; 84484; 85007; 85027; 85610; 85730; 93005; 96374; 97163; G0378

== ENCOUNTER 2025-06-07 16:39 | Inpatient (IN) | payer MEDICARE, OTHER ==
[~2025-06-07] VITALS: Ht 172.7 cm; Wt 85.7 kg
[2025-06-07 03:28] VITALS: BP 111/72; PULSE 51; RESP 19; O2SAT 90
[~2025-06-07 16:39] MED LIST changes: +AMIO200T13 PO; +APIX2.5T PO; -ATOR20TA50 PO; -AUG875T PO; -AZIT-74 PO; +FLUT1AER3 INH; -HYD1TP TOP; +MET25T PO; +METH-1181 PO; +POTA-228 PO; -SOTA80TA20 PO; -TACR0.1O7 TOP
[2025-06-07 17:43] LABS: Hematocrit 40.4 % (36.0-46.0); Hemoglobin 13.0 g/dL (12.2-16.2); Mean Corpuscular Hemoglobin 29.3 pg (28.0-32.0); Mean Corpuscular Volume 90.8 fL (80.0-100.0); Nucleated Red Blood Cells % 0.3 %
[2025-06-07 18:05] LABS: Albumin 3.9 g/dL (3.2-4.8); Alkaline Phosphatase 74 U/L (46-116); Anion Gap 12 (5-15); BUN/Creatinine Ratio 11.7 (10.0-20.0); Bilirubin, Total 0.5 mg/dL (0.2-1.0); Blood Urea Nitrogen 15 mg/dL (9-23); Calcium 9.1 mg/dL (8.7-10.4); Carbon Dioxide 25 mmol/L (20-31); Chloride 102 mmol/L (98-107); Glucose 87 mg/dL (74-106); Potassium 4.3 mmol/L (3.5-5.1); Sodium 139 mmol/L (136-145); Total Protein 8.0 g/dL (5.7-8.2)
[2025-06-07 18:30] LABS: Alanine Aminotransferase < 9 U/L (7-40)
[2025-06-07] MEDS: SODIUM CHLORIDE 0.9% 1,000 ML IV ONE (18:45)
--- NOTE | 2025-06-07 18:52 | ED.PDOC ---
HPI Comments 85-year-old female who came to ER for syncope. Patient has a history of hypertension dyslipidemia and AFib. Has been complaining of chest pains for over a month. Chest pains described to right-sided, aching, radiating to her neck. Patient was admitted at [facility], was discharged this morning, patient is still complaining of chest pains but lesser in intensity. A she got home, she stepped out of the car, she had a witnessed syncopal attack by family members. No head trauma noted. On scene sugar levels was 89, upon arrival to the ER it went down to 61 REVIEW OF SYSTEMS: General: No fever, no chills, or fatigue HEENT: No sore throat, no earache, no congestion, no neck pain. Cardiac: (+) chest pain. (+) syncope, No palpitations. Lungs: No shortness of breath, no cough. GI: No nausea, no vomiting, no diarrhea, no constipation, no abdominal pain : No dysuria, frequency, or urgency. No hematuria. Musculoskeletal: No joint pain , no joint swelling, no extremity edema. Skin: No rash, no itching. Neuro: No headache, no dizziness, no weakness EXAM: General: Awake, alert and oriented. No acute distress. Skin: Skin in warm, dry and intact. Appropriate color for ethnicity. HEENT: The head is normocephalic and atraumatic. Conjunctivae are clear without exudates or hemorrhage. Sclera is non-icteric. EOM are intact. No signs of nystagmus. Eyelids are normal in appearance without swelling or lesions. Oral mucosa is pink and moist Neck: The neck is supple with normal range of motion. No JVD. Cardiac: Heart rate and rhythm are normal. No murmurs, gallops, or rubs are auscultated. Respiratory: No signs of respiratory distress. Lung sounds are clear in all lobes bilaterally without rales, rhonchi, or wheezes. Abdominal: Abdomen is soft, non-tender without distention. Bowel sounds are present and normoactive in all four quadrants. Extremities: Upper and lower extremities are atraumatic in appearance without deformity or edema. Neurological: The patient is awake, alert and oriented to person, place, and time with normal speech. Speech is clear. There is no facial asymmetry. Psychiatric: Appropriate mood and affect. Good judgement and insight Chief Complaint: Syncope Time Seen by MD: 18:51 Primary Care Provider: SAMEER Reviewed Notes: Parachute Marker Notes Allergies: Coded Allergies: NO KNOWN ALLERGIES (Unverified , 07/10/10) Home Meds Active Scripts Diltiazem HCl (Diltiazem Hydrochloride E) 180 Mg Cap, 180 MG PO DAILY for 30 Days, #30 CAP 11 Refills Prov:PRASANTH VELA DO 09/10/23 Digoxin (Digoxin) 125 Mcg Tab, 125 MCG PO DAILY for 30 Days, #30 TAB 2 Refills Prov:KASHMIR SHAW MD 09/09/23 Reported Medications Ketoconazole (Ketoconazole) 2 % Sha, 1 APPLIC EX UD for 30 Days, #120 APPLY TO THE AFFECTED AREA FOR 5 MINUTES THEN WASH OFF. USE 3 TIMES WEEKLY. 08/07/24 Clobetasol Propionate (Clobetasol Propionate) 0.05 % Cre, 1 APPLIC TOP BID for 3 0 Days, #50 08/07/24 Atorvastatin Calcium (Lipitor) 20 Mg Tab, 1 TAB PO DAILY for 90 Days, #90 08/07/24 Benzonatate (Benzonatate) 200 Mg Cap, 1 CAP PO TID PRN for COUGH for 7 Days, #21 08/07/24 Montelukast Sodium (MONTELUKAST SODIUM) 10 Mg Tab, 1 TAB PO DAILY for 90 Days, #90 08/07/24 Docusate Sodium (Docusate Sodium) 100 Mg Cap, 1 CAP PO BID for 30 Days, #60 08/07/24 Amiodarone Hcl (AMIODARONE HCL) 100 Mg Tab, 1 TAB PO DAILY for 30 Days, #30 08/07/24 Sotalol Hcl (Sotalol Hcl) 80 Mg Tab, 1 TAB PO TID for 90 Days, #270 08/07/24 Celecoxib (Celecoxib) 200 Mg Cap, 1 CAP PO DAILY for 90 Days, #90 02/20/24 Furosemide (Furosemide) 20 Mg Tab, 1 TAB PO BID for 90 Days, #180 02/20/24 Betamethasone Dipropionate (Betamethasone Dipropionat) 0.05 % Oin, 1 APPLIC TOP BID for 20 Days, #45 APPLY TO AFFECTED AREA TWO TIMES A DAY FOR 14 DAYS, THEN 2 WEEKS OFF. 02/20/24 Sildenafil Citrate (Sildenafil Citrate) 20 Mg Tab, 1 TAB PO BID for 90 Days, #180 02/20/24 Acetaminophen (Acetaminophen) 325 Mg Tab, 325 MG PO Q4HP PRN for MILD PAIN for 30 Days, MG 0 Refills 01/22/21 Baclofen (Baclofen) 10 Mg Tab, 10 MG PO BID for 30 Days, MG 01/22/21 Potassium Chloride (K-Tabs) 10 Meq Tab, 1 TAB PO BID for 90 Days, #180 04/16/20 Apixaban Base (ELIQUIS) 5 Mg Tab, 1 TAB PO BID for 90 Days, #180 10/24/18 Gabapentin (Gabapentin) 300 Mg Cap, 1 CAP PO DAILY 10/24/18 Information Source: Patient Mode of Arrival: EMS Past Medical History PAST MEDICAL HISTORY: AFIB, High Lipids, HTN Surgical History: Hysterectomy, Tonsillectomy, Tubal Ligation [employer] WORK[employer] History: No Pertinent [employer]ER History Family History Family History: Family hx of heart leonid, Family hx of HTN Social History Smoker: Non-Smoker, Quit Greater Than 1 Year Alcohol: Occasionally Drugs: Denies Drug Use Lives In: Home EKG EKG : Pulse Rate (adult): 95 Cardiac Rhythm: NSR Was a procedure done? Was a procedure done?: No CP Differential Dx Differential Diagnosis: A-fib, Angina, Anxiety / Panic Attack, Electrolyte Disorder, Hyperventilation, Hypoxia Differential Diagnosis: Angina, Chest Wall Pain, Costochondritis, Esophageal reflux/spasm, Gastritis, Myocardial Infarction X-Ray, Labs, Meds, VS Vital Signs Date Time Temp Pulse Resp B/P (MAP) Pulse Ox O2 Delivery O2 Flow Rate FiO2 06/07/25 22:35 98.1 77 18 152/98 (116) 97 98.1 06/07/25 20:35 95 06/07/25 19:29 95 20 97 Room Air* 0 21 06/07/25 19:29 98.1 95 20 128/81 (97) 97 98.1 06/07/25 18:52 95 06/07/25 16:50 97.8 100 20 110/68 92 97.8 06/07/25 16:46 98 Lab Test 06/07/25 20:33 06/07/25 18:26 06/07/25 17:26 Range/Units Troponin I High Sensitivity 8 7 8 </=34 ng/L Triglycerides Level 100 < 150 mg/dL Cholesterol Level 162 < 200 mg/dL LDL Cholesterol 107 H < 100 mg/dL HDL Cholesterol 41 40-59 mg/dL White Blood Count 4.8 4.4-10.8 10^3/uL Red Blood Count 4.44 4.0-5.20 10^6/uL Hemoglobin 13.0 12.2-16.2 g/dL Hematocrit 40.4 36.0-46.0 % Mean Corpuscular Volume 90.8 80.0-100.0 fL Mean Corpuscular Hemoglobin 29.3 28.0-32.0 pg Mean Corpuscular Hemoglobin Concent 32.2 32.0-36.0 g/dL Red Cell Distribution Width 19.9 H 11.8-14.3 % Platelet Count 138 L 140-450 10^3/uL Mean Platelet Volume 9.3 6.9-10.8 fL Neutrophils (%) (Auto) 57.4 37.0-80.0 % Lymphocytes (%) (Auto) 21.5 10.0-50.0 % Monocytes (%) (Auto) 17.8 H 0.0-12.0 % Eosinophils (%) (Auto) 2.8 0.0-7.0 % Basophils (%) (Auto) 0.5 0.0-2.0 % Neutrophils # (Auto) 2.7 1.6-8.6 10 ^3/uL Lymphocytes # (Auto) 1.0 0.4-5.4 10 ^3/uL Monocytes # (Auto) 0.9 0-1.3 10 ^3/uL Eosinophils # (Auto) 0.1 0-0.8 10 ^3/uL Basophils # (Auto) 0 0-0.2 10 ^3/uL Nucleated Red Blood Cells 0.3 % Sodium Level 139 136-145 mmol/L Potassium Level 4.3 3.5-5.1 mmol/L Chloride Level 102 98-107 mmol/L Carbon Dioxide Level 25 20-31 mmol/L Anion Gap 12 5-15 Blood Urea Nitrogen 15 9-23 mg/dL Creatinine 1.28 H 0.550-1.02 mg/dL Glomerular Filtration Rate Calc 42 >90 mL/min BUN/Creatinine Ratio 11.7 10.0-20.0 Serum Glucose 87 74-106 mg/dL Hemoglobin A1c 5.6 <5.7 % A1C Calcium Level 9.1 8.7-10.4 mg/dL Total Bilirubin 0.5 0.2-1.0 mg/dL Aspartate Amino Transferase (AST) 24 13-40 U/L Alanine Aminotransferase (ALT) < 9 7-40 U/L Alkaline Phosphatase 74 46-116 U/L B-Type Natriuretic Peptide 103.76 0-100 pg/mL Total Protein 8.0 5.7-8.2 g/dL Albumin 3.9 3.2-4.8 g/dL Current Medications Medications (Trade) Dose Ordered Sig/Robi Route Start Time Stop Time Status Last Admin Sodium Chloride 1,000 ml @ 1,000 mls/hr Q1H ONCE IV 06/07/25 18:45 06/07/25 19:44 DC 06/07/25 18:45 Acetaminophen (Tylenol Tablet) 650 mg ONCE ONCE PO 06/07/25 21:15 06/07/25 21:16 DC 06/07/25 21:08 EXAM: XY CHEST XRAY 1 VIEW CLINICAL HISTORY: cp TECHNIQUE: Single AP view of the chest WID: COMPARISON: XY CHEST TWO VIEWS ROUTINE on DOS: 12/12/24, CT CHEST WITHOUT CONTRAST on DOS: 08/06/24 FINDINGS: Lines and tubes: None Chest: Mild cardiomegaly with mild prominence of the central pulmonary vasculature. Fibrotic projects over the aortic arch. No pleural effusion, pneumothorax, or consolidation. The osseous structures are grossly intact. IMPRESSION: 1. Mild cardiomegaly with mild prominence of the central pulmonary vasculature. Time of 1ST Reevaluation: 18:47 Reevaluation 1ST: Unchanged Patient Education/Counseling: Other (Need for admission) Family Education/Counseling: No Family Present SEPSIS Sepsis Screen Date sepsis recognized/suspect: Jun 07, 2025 Time Sepsis recognized/suspect: 1634 Recent Procedure: No On Antibiotic Therapy: No Respiratory Rate >20: No Heart Rate >90: Yes Temp<36 C (96.8 F) or >38.3 C: No SBP <90 or MAP <65 mmHG: No New Acute Mental Status Change: No Is the patient on CPAP, BIPAP,: No Physician Orders Electrocardigram (06/07/25 18:35) Fly Worker (06/07/25 ) Orthostatic Vital Signs (06/07/25 ) Saline Lock (06/07/25 18:35) Fall Precautions Initiated (06/07/25 18:35) Chest Xray 1 View (06/07/25 18:35) Saline Lock (06/07/25 18:35) Fly Worker (06/07/25 ) Vital Signs Date Time Temp Pulse Resp B/P (MAP) Pulse Ox O2 Delivery O2 Flow Rate FiO2 06/07/25 22:35 98.1 77 18 152/98 (116) 97 98.1 06/07/25 20:35 95 06/07/25 19:29 95 20 97 Room Air* 0 21 06/07/25 19:29 98.1 95 20 128/81 (97) 97 98.1 06/07/25 18:52 95 06/07/25 16:50 97.8 100 20 110/68 92 97.8 06/07/25 16:46 98 Laboratory Tests Test 06/07/25 17:26 White Blood Count 4.8 10^3/uL (4.4-10.8) Medications Medications Dose Ordered Sig/Robi Route Start Time Stop Time Status Last Admin Dose Admin Acetaminophen 650 mg ONCE ONCE PO 06/07/25 21:15 06/07/25 21:16 DC 06/07/25 21:08 Sodium Chloride 1,000 ml @ 1,000 mls/hr Q1H ONCE IV 06/07/25 18:45 06/07/25 19:44 DC 06/07/25 18:45 Departure 1 Departure Time of Disposition: 20:43 Impression: Primary Impression: Syncope Additional Impressions: History of atrial fibrillation Chest pain Disposition: HOME / SELF CARE / HOMELESS Condition: Stable Comments 85-year-old female with multiple risk factors with syncopal episode. Patient admitted to hospitalist service for further treatment, evaluation and monitoring. Extensive evaluation was performed in attempt to identify or rule out: (See differential diagnosis section) The following tests were ordered, and results were reviewed by me and discussed with patient: (See diagnostic results section) The following test were independently interpreted by me: EKG I reviewed and agreed with the following test results read by other providers: Chest x-ray Additional information was gathered from interviewing the following independent historians: EMS personnel Decision regarding hospitalization or escalation of hospital level of care: Risk and benefits of admission for further treatment of patient's condition was considered. Due to patient's current clinical condition, high risk of decline and poor outcome if discharged and need for further inpatient management and monitoring, patient will be admitted to the hospital. Discussed with patient. Critical Care Note Critical Care Time?: Yes (35 min-critical care time only) Critical care comment: Syncope Stability Stability form required: No Heart Score Heart Score: Heart Score Response (Comments) Value History Moderate Suspicious 1 EKG Repolarization Disturb 1 Age >65 2 Risk Factors >3 or Hx ASHD 2 Troponin Normal limit 0 Total 6 I personally scribed for THALIA VELÁSQUEZ MD ([email or web address]) on 06/07/25 at 18:52. Electronically submitted by Aaron Teresa ([employer] I personally scribed for THALIA VELÁSQUEZ MD ([email or web address]) on 06/07/25 at 20:35. Electronically submitted by Aaron Teresa ([employer] THALIA VELÁSQUEZ MD Jun 07, 2025 18:52
[2025-06-07 19:29] VITALS: PULSE 95; RESP 20; O2SAT 97
--- NOTE | 2025-06-07 20:24 | DVH ---
EXAM: XY CHEST XRAY 1 VIEW CLINICAL HISTORY: cp TECHNIQUE: Single AP view of the chest WID: COMPARISON: XY CHEST TWO VIEWS ROUTINE on DOS: 12/12/24, CT CHEST WITHOUT CONTRAST on DOS: 08/06/24 FINDINGS: Lines and tubes: None Chest: Mild cardiomegaly with mild prominence of the central pulmonary vasculature. Fibrotic projects over t he aortic arch. No pleural effusion, pneumothorax, or consolidation. The osseous structures are grossly intact. IMPRESSION: 1. Mild cardiomegaly with mild prominence of the central pulmonary vasculature.
[2025-06-07] MEDS: ACETAMINOPHEN 325 MG TAB PO ONE (21:08)
--- NOTE | 2025-06-07 21:51 | ECG ---
[facility] Test Date: 2025-06-07 Test Time: 16:46:37 Pat Name: LIZETTE PATEL Department: [facility] ED Patient ID: [facility]-[id number] Room: 0277T Gender: F Bronzer: : 1940 Requested By: VERNA ARTEAGA Order Number: [id number] Reading MD: Jaylon Partida Measurements Intervals [place] Rate: 98 P: 90 ND: 216 QRS: -87 QRSD: 73 T: 65 QT: 387 QTc: 495 Interpretive Statements Sinus rhythm Prolonged ND interval Inferior infarct, old Consider anterior infarct Electronically Signed On 06-12-2025 21:59:45 PDT by Jaylon Partida Please click the below link to view image of tracing.
[2025-06-07 23:46] LABS: Triglycerides 100 mg/dL (< 150)
[2025-06-07 23:48] LABS: Cholesterol 162 mg/dL (< 200); HDL Cholesterol 41 mg/dL (40-59)
--- NOTE | 2025-06-07 23:52 | DVHHPRES ---
History of Present Illness Resident Creating Document: ASMITA CHAMORRO RESIDENT History of Present Illness This is an 85-year-old female with past medical history of hypertension, dyslipidemia, AFib, pulmonary hypertension who presented to the ED with chief complaint of syncope and recurrent chest pain. Patient reports that she was recently hospitalized at [facility] and was currently released today. Patient was hospitalized for acute chest pain/unstable angina for which workup was done and apparently everything was unremarkable. Patient states that when she was released from the hospital and arrived at home she experienced worsening chest pain and had a syncopal episode with loss of consciousness that was witnessed by her daughter. Patient was brought to the ED at that time. Upon arrival to the ED CBC and CMP were grossly unremarkable, troponins were negative and BNP was 103.76. EKG at that time showed sinus rhythm with no ST segment elevation or T- wave inversion. Upon my examination, patient goes to a paroxysmal AFib and comes back to normal sinus rhythm. There is no bilateral lower extremity swelling at this time and there is no additional positive signs on physical examination. Patient states that he is taking amiodarone 200 mg daily and metoprolol tartrate 12.5 mg b.i.d.. Patient states that she is not able to take lung walks due to need to stop to catch her breath. We will order an echocardiogram, place patient on cardiac diet and do a cardio consult for further assessment and management. Surgical history: Varicose vein surgery on bilateral lower extremities and tubal ligation Social history: Denies smoking, we did 10 years ago, reports no alcohol or drug intake. Medication history: Amiodarone 200 mg daily, Eliquis5 mg b.i.d., furosemide 20 mg b.i.d., metoprolol tartrate 12.5 mg b.i.d., montelukast 10 mg daily, sildenafil 20 mg b.i.d. Cardiovascular: AFIB, HTN, hyperipidemia Past Surgical History: Tubal Ligation Family History: None Smoke: Quit ALCOHOL: none Drugs: None Lives: with Family Domestic Violence: Neg Review of Systems Constitutional: No: Fever, Chills, Sweats, Weakness, Malaise, Other Eyes: No: Pain, Vision change, Conjunctivae inflammation, Eyelid inflammation, Other, Redness ENT: No: Ear pain, Ear discharge, Nose pain, Nose discharge, Nose congestion, Mouth pain, Mouth swelling, Throat pain, Throat swelling, Other Respiratory: Shortness of breath, SOB with excertion; No: Cough, Dry, Wheezing, Hemoptysis, Pleuritic Pain, Sputum, Wheezing, Other Cardiovascular: Chest Pain, Palpitations; No: Orthopnea, Paroxysmal Noc. Dyspnea, Edema, Lt Headedness, Other Gastrointestinal: No: Nausea, Vomiting, Abdominal Pain, Diarrhea, Constipation, Melena, Hematochezia, Other Genitourinary: No Dysuria, No Frequency, No Incontinence, No Hematuria, No Retention, No Other Musculoskeletal: No: other, neck pain, shoulder pain, arm pain, back pain, hand pain, leg pain, foot pain Skin: No: Rash, Lesions, Jaundice, Bruising, Other Neurological: No: Weakness, Numbness, Incoordination, Change in speech, Confusion, Seizures, Other Allergies: Coded Allergies: NO KNOWN ALLERGIES (Unverified , 07/10/10) Exam Vital Signs Vital Signs Date Time Temp Pulse Resp B/P (MAP) Pulse Ox O2 Delivery O2 Flow Rate FiO2 06/07/25 22:35 98.1 77 18 152/98 (116) 97 98.1 06/07/25 19:29 Room Air* 0 21 General Appearance: Alert, Oriented X3, Cooperative, mild distress HEENT: Atraumatic, PERRLA, EOMI, Mucous membr. moist/pink Respiratory: Clear to auscultation, Normal air movement Cardiovascular: Regular rate, Normal S1, Normal S2, No murmurs Abdominal: Normal bowel sounds, Soft, No tenderness, No hepatospenomegaly, No masses Extremities: No clubbing, No cyanosis, No edema, Normal pulses, No tenderness/swelling Skin: No rashes, No breakdown, No significant lesion Neuro: Normal gait, Normal speech, Strength at 5/5 X4 ext, Normal tone, Sensation intact, Cranial nerves 3-12 NL, Reflexes 2+ Psych/Mental Status: Mental status NL, Mood NL Labs/Xrays Labs Test 06/07/25 20:33 06/07/25 17:26 Range/Units Troponin I High Sensitivity 8 </=34 ng/L White Blood Count 4.8 4.4-10.8 10^3/uL Red Blood Count 4.44 4.0-5.20 10^6/uL Hemoglobin 13.0 12.2-16.2 g/dL Hematocrit 40.4 36.0-46.0 % Mean Corpuscular Volume 90.8 80.0-100.0 fL Mean Corpuscular Hemoglobin 29.3 28.0-32.0 pg Mean Corpuscular Hemoglobin Concent 32.2 32.0-36.0 g/dL Red Cell Distribution Width 19.9 H 11.8-14.3 % Platelet Count 138 L 140-450 10^3/uL Mean Platelet Volume 9.3 6.9-10.8 fL Neutrophils (%) (Auto) 57.4 37.0-80.0 % Lymphocytes (%) (Auto) 21.5 10.0-50.0 % Monocytes (%) (Auto) 17.8 H 0.0-12.0 % Eosinophils (%) (Auto) 2.8 0.0-7.0 % Basophils (%) (Auto) 0.5 0.0-2.0 % Neutrophils # (Auto) 2.7 1.6-8.6 10 ^3/uL Lymphocytes # (Auto) 1.0 0.4-5.4 10 ^3/uL Monocytes # (Auto) 0.9 0-1.3 10 ^3/uL Eosinophils # (Auto) 0.1 0-0.8 10 ^3/uL Basophils # (Auto) 0 0-0.2 10 ^3/uL Nucleated Red Blood Cells 0.3 % Sodium Level 139 136-145 mmol/L Potassium Level 4.3 3.5-5.1 mmol/L Chloride Level 102 98-107 mmol/L Carbon Dioxide Level 25 20-31 mmol/L Anion Gap 12 5-15 Blood Urea Nitrogen 15 9-23 mg/dL Creatinine 1.28 H 0.550-1.02 mg/dL Glomerular Filtration Rate Calc 42 >90 mL/min BUN/Creatinine Ratio 11.7 10.0-20.0 Serum Glucose 87 74-106 mg/dL Calcium Level 9.1 8.7-10.4 mg/dL Total Bilirubin 0.5 0.2-1.0 mg/dL Aspartate Amino Transferase (AST) 24 13-40 U/L Alanine Aminotransferase (ALT) < 9 7-40 U/L Alkaline Phosphatase 74 46-116 U/L B-Type Natriuretic Peptide 103.76 0-100 pg/mL Total Protein 8.0 5.7-8.2 g/dL Albumin 3.9 3.2-4.8 g/dL SEPSIS Sepsis Screen Date sepsis recognized/suspect: Jun 07, 2025 Time Sepsis recognized/suspect: 1931 Recent Procedure: No On Antibiotic Therapy: No Respiratory Rate >20: No Heart Rate >90: No Temp<36 C (96.8 F) or >38.3 C: No SBP <90 or MAP <65 mmHG: No New Acute Mental Status Change: No Is the patient on CPAP, BIPAP,: No Physician Orders Electrocardigram (06/07/25 18:35) Certified Indoor Environmentalist (06/07/25 ) Orthostatic Vital Signs (06/07/25 ) Saline Lock (06/07/25 18:35) Fall Precautions Initiated (06/07/25 18:35) Chest Xray 1 View (06/07/25 18:35) Vital Signs Q1HR (06/07/25 18:35) Saline Lock (06/07/25 18:35) Certified Indoor Environmentalist (06/07/25 ) Admit (06/07/25 23:28) Code Status (06/07/25 23:) Vital Signs .PER UNIT PROTOCOL (06/07/25 23:28) Review Orders With Adm.Md (06/07/25 23:28) Encourage Activity As Tolerate (06/07/25 23:28) Acetaminophen Tablet (Tylenol Tablet) (06/07/25 23:30) Notify Md Of Changes From Base (06/07/25 23:28) Advance Directive (06/07/25 23:28) Basic Metabolic Panel (06/08/25 04:00) Urinalysis (06/07/25 23:28) Complete Blood Count (06/08/25 04:00) Lipid Panel (06/07/25 23:28) Patient Condition (06/07/25 23:28) Allergies (06/07/25 23:28) Drug Screen (06/07/25 23:28) Hemoglobin A1c (06/07/25 23:28) Echo 2d Mode Cardiac Dop (06/07/25 23:31) Cardiac Diet-2gna,Lofat,Lochol (06/08/25 Breakfast) * Cardiology Consult (06/07/25 23:31) Amiodarone Tablet (Cordarone Tablet) (06/08/25 10:00) Apixaban (Eliquis) (06/08/25 10:00) Metoprolol Tartrate Tablet (Lopressor Ta (06/08/25 10:00) Montelukast Tablet (Singulair Tablet) (06/08/25 10:00) Sildenafil Citrate (Revatio) (06/08/25 10:00) Covid19 Antigen Liss (06/07/25 ) Rapid Influenza A&B (06/07/25 23:36) Orthostatic Vital Signs (06/07/25 23:38) Communication Order (06/07/25 23:38) Vital Signs Date Time Temp Pulse Resp B/P (MAP) Pulse Ox O2 Delivery O2 Flow Rate FiO2 06/07/25 22:35 98.1 77 18 152/98 (116) 97 98.1 06/07/25 20:35 95 06/07/25 19:29 95 20 97 Room Air* 0 21 06/07/25 19:29 98.1 95 20 128/81 (97) 97 98.1 06/07/25 18:52 95 06/07/25 16:50 97.8 100 20 110/68 92 97.8 06/07/25 16:46 98 Laboratory Tests Test 06/07/25 17:26 White Blood Count 4.8 10^3/uL (4.4-10.8) Medications Medications Dose Ordered Sig/Robi Route Start Time Stop Time Status Last Admin Dose Admin Acetaminophen 650 mg ONCE ONCE PO 06/07/25 21:15 06/07/25 21:16 DC 06/07/25 21:08 650 MG Sodium Chloride 1,000 ml @ 1,000 mls/hr Q1H ONCE IV 06/07/25 18:45 06/07/25 19:44 DC 06/07/25 18:45 1,000 MLS/HR Assessment/Plan Assessment/Plan Assessment/plan Acute chest pain, rule out ACS Syncopal episode with loss of consciousness, possible cardiac etiology Pulmonary hypertension Paroxysmal atrial fibrillation Primary hypertension Dyslipidemia Plan -EKG showed sinus rhythm with no ST segment elevation or T-wave inversion, actual monitor shows paroxysmal atrial fib converting back to normal sinus rhythm -ordered echocardiogram -troponins are negative -start cardiac diet -orthostatic vitals checked -consulted cardiology for evaluation of possible cardiac etiology of syncope, unstable angina and possible need of stress test -resume sildenafil 20 mg b.i.d. -resume metoprolol tartrate 12.5 mg b.i.d. -resume amiodarone 200 mg daily p.o. -resume Eliquis 5 mg b.i.d. -currently patient on2 L of oxygen through nasal cannula saturating above 98% Goals of care discussed with the patient at bedside, full code Plan discussed with Dr. Purcell Plan discussed with: Patient My Orders Orders - ASMITA CHAMORRO Procedure Category Date Status Time Admit ADMIT 06/07/25 Transmitted 23:28 Code Status CODE 06/07/25 Transmitted 23:28 Vital Signs [facility] 06/07/25 In Process 23:28 Review Orders With [facility] 06/07/25 In Process Adm. 23:28 Encourage Activity As [facility] 06/07/25 In Process Tolerate 23:28 Acetaminophen Tablet [facility] 06/07/25 In Process (Tylenol Tablet) 23:30 Notify Of Changes [facility] 06/07/25 In Process From Base 23:28 Advance Directive [facility] 06/07/25 In Process 23:28 Basic Metabolic Panel LAB 06/08/25 Verified 04:00 Urinalysis LAB 06/07/25 Logged 23:28 Complete Blood Count LAB 06/08/25 Verified 04:00 Lipid Panel LAB 06/07/25 In Process 23:28 Patient Condition ORDERS 06/07/25 Transmitted 23:28 Allergies [facility] 06/07/25 In Process 23:28 Drug Screen LAB 06/07/25 Logged 23:28 Hemoglobin A1c LAB 06/07/25 In Process 23:28 Echo 2d Mode Cardiac US 06/07/25 Logged DOP 23:31 Cardiac DIET 06/08/25 Transmitted Diet-2gna,Lofat,Lochol Breakfast * Cardiology Consult CONS 06/07/25 Transmitted 23:31 Amiodarone Tablet PHA 06/08/25 Logged (Cordarone Tablet) 10:00 Apixaban (Eliquis) PHA 06/08/25 Logged 10:00 Metoprolol Tartrate PHA 06/08/25 Logged Tablet (Lopressor Ta 10:00 Montelukast Tablet PHA 06/08/25 Logged (Singulair Tablet) 10:00 Sildenafil Citrate PHA 06/08/25 Logged (Revatio) 10:00 Covid19 Antigen Liss LAB 06/07/25 Logged Rapid Influenza A&B LAB 06/07/25 Logged 23:36 Orthostatic Vital ORDERS 06/07/25 Verified Signs 23:38 Communication Order ORDERS 06/07/25 Verified 23:38 Date of Service: Jun 07, 2025 ([place] Patient ) Billing Provider: BRIGID PURCELL MD Common Visit Codes: [id number] INP/OBS CARE (HIGH) Secondary Visit Codes: [id number] CARE PLAN 30 MINUTES ASMITA CHAMORRO RESIDENT Jun 07, 2025 23:52 BRIGID PURCELL MD Jun 08, 2025 13:38
[2025-06-08] VITALS (12 sets, daily range): BP systolic 90–140; BP diastolic 53–90; PULSE 57–106; RESP 15–20; TEMP 97.5–98.3; O2SAT 90–100
[2025-06-08 03:48] LABS: Chloride 103 mmol/L (98-107); Potassium 4.3 mmol/L (3.5-5.1); Sodium 140 mmol/L (136-145)
[2025-06-08 03:49] LABS: Anion Gap 10 (5-15); Carbon Dioxide 27 mmol/L (20-31)
[2025-06-08 03:50] LABS: Calcium 8.9 mg/dL (8.7-10.4)
[2025-06-08 03:54] LABS: Glucose 89 mg/dL (74-106)
[2025-06-08 03:55] LABS: BUN/Creatinine Ratio 12.7 (10.0-20.0); Blood Urea Nitrogen 14 mg/dL (9-23)
[2025-06-08 05:04] LABS: Hematocrit 36.5 % (36.0-46.0); Hemoglobin 12.1 g/dL (12.2-16.2); Mean Corpuscular Hemoglobin 29.8 pg (28.0-32.0); Mean Corpuscular Volume 89.9 fL (80.0-100.0)
[2025-06-08 05:14] LABS: Urine Budding Yeast OCCASIONAL /hpf (None Seen); Urine Protein, UAD Negative (Negative)
[2025-06-08 05:16] LABS: Amphetamine Screen, Urine Neg (NEGATIVE); Barbiturate Scree,Urine Neg (NEGATIVE); Benzodiazephine Screen, Urine Neg (NEGATIVE); Cannabinoid Screen, Urine Neg (NEGATIVE); Cocaine Screen, Urine Neg (NEGATIVE); Opiate Scree,Urine Neg (NEGATIVE); Phencyclidine Screen, Urine Neg (NEGATIVE)
[2025-06-08 05:41] LABS: COVID19 ANTIGEN SOFIA FIA NEGATIVE (NEGATIVE)
[2025-06-08 07:54] LABS: Total Cells Counted 100.0 (100)
[2025-06-08] MEDS: AMIODARONE HCL 200 MG TAB PO SCH (08:34)
[2025-06-08] MEDS: APIXABAN 5 MG TAB PO SCH (08:34)
[2025-06-08] MEDS: SILDENAFIL CITRATE 20 MG TAB PO SCH (08:34)
[2025-06-08] MEDS: MONTELUKAST SODIUM 10 MG TAB PO SCH (08:35)
[2025-06-08] MEDS: METOPROLOL TARTRATE 25 MG TAB PO SCH (08:36)
--- NOTE | 2025-06-08 12:04 | DVHINCON2 ---
Date of service: Jun 08, 2025 Reason for Consultation Chest pain, syncope History of Present Illness History Source: Patient HPI The patient is an 85-year-old female who initially presented to the emergency department on 06/07/2025 with syncope and recurrent chest pain. She reported a recent hospitalization at [facility] for acute chest pain and unstable angina. After discharge, she experienced worsening chest pain and a syncopal episode with loss of consciousness, witnessed by her daughter. Initial electrocardiogram demonstrated sinus rhythm with a ventricular rate of 98 bpm, TX interval prolonged at 216 ms, and no acute ST changes. Laboratory results were notable for hemoglobin 12.1, D-dimer 0.32, potassium 4.3, creatinine 1.1 (GFR 50), serial high-sensitivity troponin 7 - 8 - 7, BNP 103. Toxicology screen was negative. Influenza and COVID testing were negative. Chest X-ray revealed mild cardiomegaly with mild prominence of the central pulmonary vasculature. Past medical history includes hypertension, hyperlipidemia, atrial fibrillation, pulmonary hypertension, and COPD. Cardiac Imaging: Echocardiogram (06/2024): Mild concentric left ventricular hypertrophy with LVEF 6065%, no regional wall motion abnormalities, normal right ventricular size and systolic function. Left atrium mildly dilated, right atrium mildly enlarged. Aortic valve poorly visualized; bicuspid aortic valve cannot be ruled out. Mild aortic valve sclerosis without stenosis or regurgitation. Mild mitral annular calcification with mild mitral regurgitation. Moderate tricuspid regurgitation. Moderate pulmonary hypertension (RVSP 56 mmHg). Pulmonic valve and IVC not well visualized. No pericardial effusion. Echocardiogram (06/06/2025 [place]): Right ventricle mildly dilated with normal wall thickness and normal systolic function. Left ventricle with normal wall motion and diastolic dysfunction; EF 70%. Left atrium mildly dilated; right atrium mildly dilated. [id number] tricuspid regurgitation with possible tricuspid stenosis. Severe pulmonary hypertension with estimated RVSP 77 mmHg. No pericardial effusion reported. Echocardiogram (06/08/2025): Mild concentric left ventricular hypertrophy with LVEF ~60%, no gross wall motion abnormality. Left atrium mildly dilated; right ventricle mildly dilated with reduced systolic function; right atrium moderately dilated. Aortic valve poorly visualized with aortic sclerosis and no stenosis or insufficiency. Mitral valve with posterior leaflet annular calcification and minimal prolapse; mild mitral regurgitation. Moderate tricuspid regurgitation. Mild pulmonic insufficiency. Pulmonary hypertension with RVSP 60 mmHg. No pericardial effusion. Home Meds Active Scripts Diltiazem HCl (Diltiazem Hydrochloride E) 180 Mg Cap, 180 MG PO DAILY for 30 Days, #30 CAP 11 Refills Prov:PRASANTH VELA 09/10/23 Digoxin (Digoxin) 125 Mcg Tab, 125 MCG PO DAILY for 30 Days, #30 TAB 2 Refills Prov:KASHMIR SHAW MD 09/09/23 Reported Medications Ketoconazole (Ketoconazole) 2 % Sha, 1 APPLIC EX UD for 30 Days, #120 APPLY TO THE AFFECTED AREA FOR 5 MINUTES THEN WASH OFF. USE 3 TIMES WEEKLY. 08/07/24 Clobetasol Propionate (Clobetasol Propionate) 0.05 % Cre, 1 APPLIC TOP BID for 30 Days, #50 08/07/24 Atorvastatin Calcium (Lipitor) 20 Mg Tab, 1 TAB PO DAILY for 90 Days, #90 08/07/24 Benzonatate (Benzonatate) 200 Mg Cap, 1 CAP PO TID PRN for COUGH for 7 Days, #21 08/07/24 Montelukast Sodium (MONTELUKAST SODIUM) 10 Mg Tab, 1 TAB PO DAILY for 90 Days, #90 08/07/24 Docusate Sodium (Docusate Sodium) 100 Mg Cap, 1 CAP PO BID for 30 Days, #60 08/07/24 Amiodarone Hcl (AMIODARONE HCL) 100 Mg Tab, 1 TAB PO DAILY for 30 Days, #30 08/07/24 Sotalol Hcl (Sotalol Hcl) 80 Mg Tab, 1 TAB PO TID for 90 Days, #270 08/07/24 Celecoxib (Celecoxib) 200 Mg Cap, 1 CAP PO DAILY for 90 Days, #90 02/20/24 Furosemide (Furosemide) 20 Mg Tab, 1 TAB PO BID for 90 Days, #180 02/20/24 Betamethasone Dipropionate (Betamethasone Dipropionat) 0.05 % Oin, 1 APPLIC TOP BID for 20 Days, #45 APPLY TO AFFECTED AREA TWO TIMES A DAY FOR 14 DAYS, THEN 2 WEEKS OFF. 02/20/24 Sildenafil Citrate (Sildenafil Citrate) 20 Mg Tab, 1 TAB PO BID for 90 Days, #180 02/20/24 Acetaminophen (Acetaminophen) 325 Mg Tab, 325 MG PO Q4HP PRN for MILD PAIN for 30 Days, MG 0 Refills 01/22/21 Baclofen (Baclofen) 10 Mg Tab, 10 MG PO BID for 30 Days, MG 01/22/21 Potassium Chloride (K-Tabs) 10 Meq Tab, 1 TAB PO BID for 90 Days, #180 04/16/20 Apixaban Base (ELIQUIS) 5 Mg Tab, 1 TAB PO BID for 90 Days, #180 10/24/18 Gabapentin (Gabapentin) 300 Mg Cap, 1 CAP PO DAILY 10/24/18 Past Medical History Patient Family History: Arthritis G8 MOTHER Blood clots Cardiovascular disease G8 MOTHER FH: multiple sclerosis G8 FATHER Review of Systems Comments A 14-point review of systems is negative unless otherwise noted in HPI H&P Exam Vital Signs Vital Signs Date Time Temp Pulse Resp B/P (MAP) Pulse Ox O2 Delivery O2 Flow Rate FiO2 06/08/25 08:55 98.3 100 16 98/63 (75) 94 98.3 06/08/25 07:40 Nasal Cannula* 3 32 Comments Heart: S1 and S2 present. The patient is in sinus rhythm. Lungs: Scattered rhonchi. Abdomen: Benign. Extremities: Distal pulses palpable, 2+. No evidence for peripheral edema Labs/Xrays Labs Test 06/08/25 06:17 06/08/25 04:30 06/08/25 03:35 06/08/25 03:15 Range/Units Urine Color Light-yellow Yellow Urine Clarity Clear Clear Urine pH 5.5 5.0-9.0 Urine Specific [place] 1.009 1.001-1.035 Urine Protein Negative Negative Urine Ketones Negative Negative Urine Blood Negative Negative /uL Urine Nitrite Negative Negative Urine Bilirubin Negative Negative Urine Urobilinogen Normal Negative mg/dL Urine Leukocyte Esterase Negative Negative /uL Urine RBC 1 0 - 4 /hpf Urine Microscopic WBC 2 0-5 /HPF Urine Squamous Epithelial Cells Few <5 /hpf Urine Renal Epithelial Cells Few None Seen /hpf Urine Bacteria Few H None Seen /hpf Urine Yeast (Budding) Occasional None Seen /hpf Urine Glucose Normal Normal mg/dL Urine Opiates Screen Neg NEGATIVE Urine Fentanyl Screen Neg NEGATIVE Urine Barbiturates Screen Neg NEGATIVE Urine Phencyclidine Screen Neg NEGATIVE Urine Amphetamines Screen Neg NEGATIVE Urine Benzodiazepines Screen Neg NEGATIVE Urine Cocaine Screen Neg NEGATIVE Urine Cannabinoids Screen Neg NEGATIVE Influenza Type A Antigen Negative Negative Influenza Type B Antigen Negative Negative SARS-CoV-2 Antigen (Rapid) Negative NEGATIVE White Blood Count 4.6 4.4-10.8 10^3/uL Red Blood Count 4.07 4.0-5.20 10^6/uL Hemoglobin 12.1 L 12.2-16.2 g/dL Hematocrit 36.5 36.0-46.0 % Mean Corpuscular Volume 89.9 80.0-100.0 fL Mean Corpuscular Hemoglobin 29.8 28.0-32.0 pg Mean Corpuscular Hemoglobin Concent 33.2 32.0-36.0 g/dL Red Cell Distribution Width 19.6 H 11.8-14.3 % Platelet Count 142 140-450 10^3/uL Mean Platelet Volume 9.7 6.9-10.8 fL Neutrophils (%) (Auto) 37.0-80.0 % Lymphocytes (%) (Auto) 10.0-50.0 % Monocytes (%) (Auto) 0.0-12.0 % Basophils (%) (Auto) 0.0-2.0 % Neutrophils # (Auto) 1.6-8.6 10 ^3/uL Lymphocytes # (Auto) 0.4-5.4 10 ^3/uL Monocytes # (Auto) 0-1.3 10 ^3/uL Differential Total Cells Counted 100.0 100 Neutrophils % (Manual) 60 37.0-80.0 Band Neutrophils % (Manual) 4 Lymphocytes % (Manual) 20 10.0-50.0 Monocytes % (Manual) 16 H 0-12 Eosinophils % (Manual) 0 0-7 Basophils % (Manual) 0 0.0-2.0 Metamyelocytes % (manual) 0 Myelocytes % (Manual) 0 Promyelocytes % (Manual) 0 Blast Cells % (Manual) 0 Reactive Lymphocytes 0 Platelet Estimate Adequate Sodium Level 140 136-145 mmol/L Potassium Level 4.3 3.5-5.1 mmol/L Chloride Level 103 98-107 mmol/L Carbon Dioxide Level 27 20-31 mmol/L Anion Gap 10 5-15 Blood Urea Nitrogen 14 9-23 mg/dL Creatinine 1.10 H 0.550-1.02 mg/dL Glomerular Filtration Rate Calc 50 >90 mL/min BUN/Creatinine Ratio 12.7 10.0-20.0 Serum Glucose 89 74-106 mg/dL Calcium Level 8.9 8.7-10.4 mg/dL Test 06/07/25 20:33 06/07/25 17:26 Range/Units Troponin I High Sensitivity 8 </=34 ng/L Triglycerides Level 100 < 150 mg/dL Cholesterol Level 162 < 200 mg/dL LDL Cholesterol 107 H < 100 mg/dL HDL Cholesterol 41 40-59 mg/dL Eosinophils (%) (Auto) 2.8 0.0-7.0 % Eosinophils # (Auto) 0.1 0-0.8 10 ^3/uL Basophils # (Auto) 0 0-0.2 10 ^3/uL Nucleated Red Blood Cells 0.3 % Hemoglobin A1c 5.6 <5.7 % A1C Total Bilirubin 0.5 0.2-1.0 mg/dL Aspartate Amino Transferase (AST) 24 13-40 U/L Alanine Aminotransferase (ALT) < 9 7-40 U/L Alkaline Phosphatase 74 46-116 U/L B-Type Natriuretic Peptide 103.76 0-100 pg/mL Total Protein 8.0 5.7-8.2 g/dL Albumin 3.9 3.2-4.8 g/dL Assessment/Plan Admitting Diagnosis: Heart failure with preserved ejection fraction Pulmonary hypertension Atrial fibrillation Chest pain COPD Plan Recognizing presentation ACS at this point is not considered As ACS is not considered, no indication warranted for ischemic workup at present time Continuation of full-dose halfway anticoagulation for CVA prophylaxis atrial fibrillation is advised Proceed with close observation for overt signs of fluid overload Proceed with strict intakes, outputs, and daily weights Proceed with close rate and rhythm surveillance Proceed with close hemodynamic surveillance Proceed with optimized blood pressure control Transfuse to sustain HGB levels above 7.0 Sustain Magnesium level greater than 2.0 Sustain Potassium level greater than 4.0 Follow up renal function and electrolytes Management in Telemetry Will proceed to follow from a cardiac perspective Further recommendations per clinical progression All available labs, EKGs, and images were personally reviewed Patient's status, findings, and plan of care was discussed and reviewed with supervising physician Dr. Hernandez, who is in agreement with current plan of care. Plan of care discussed with and agreed upon by patient/family/Primary RN. Prognosis: Guarded Thank you for allowing me to participate in the care of this patient. Further recommendations will depend on clinical progression, hospitalist, and other consultants. Will continue to follow with Primary. If you have any questions, please do not hesitate to contact me. A total of 75 minutes was spent reviewing the patient record, examining the patient, making a diagnostic and therapeutic plan, discussing this plan with medical personnel, following up on diagnostic studies and following the patient for clinical stability excluding any and all procedures. At least 50% of this time was spent in direct, [id number] contact. Plan discussed with: Patient BRANDON MARTIN NP Jun 08, 2025 12:04
[2025-06-08] MEDS: ACETAMINOPHEN 325 MG TAB PO PRN (16:36)
--- NOTE | 2025-06-08 17:28 | DVHPN2 ---
Subjective better Reviewed: Care Plan, H&P, Labs, Medications, Previous Orders, Radiology Changes from previous H/P or p: No Changes Objective Vitals Vital Signs Date Time Temp Pulse Resp B/P (MAP) Pulse Ox O2 Delivery O2 Flow Rate FiO2 06/08/25 16:56 57 104/76 (85) 93 06/08/25 16:55 97.5 16 97.5 06/08/25 07:40 Nasal Cannula* 3 32 Intake/Output Intake and Output 06/08/25 07:00 Intake Total 0 ml Balance 0 ml Intake Oral 0 ml General Appearance: Alert, Oriented X3, Cooperative, No acute distress HEENT: Atraumatic Lungs: Clear to auscultation Cardiovascular: Regular rate Medications Current Medications Medications Dose Ordered Sig/Robi Route Start Time Stop Time Status Last Admin Dose Admin Acetaminophen 650 mg Q6HP PRN PO 06/07/25 23:30 06/08/25 16:36 650 MG Amiodarone HCl 200 mg DAILY PO 06/08/25 10:00 06/08/25 08:34 200 MG Apixaban 5 mg BID PO 06/08/25 10:00 06/08/25 08:34 5 MG Metoprolol Tartrate 12.5 mg BID PO 06/08/25 10:00 Montelukast Sodium 10 mg DAILY PO 06/08/25 10:00 06/08/25 08:35 10 MG Sildenafil Citrate 20 mg BID PO 06/08/25 10:00 06/08/25 08:34 20 MG Laboratory Results Laboratory Tests 06/08/25 03:15 Chemistry Test 06/08/25 03:15 Calcium Level 8.9 mg/dL (8.7-10.4) Coagulation Test 06/08/25 12:44 D-Dimer, Quantitative 0.32 mg/L FEU (0.0-0.49) Lipid panel Test 06/07/25 20:33 Cholesterol Level 162 mg/dL (< 200) HDL Cholesterol 41 mg/dL (40-59) Triglycerides Level 100 mg/dL (< 150) Urinalysis Test 06/08/25 04:30 Urine Color Light-yellow (Yellow) Urine Clarity Clear (Clear) Urine pH 5.5 (5.0-9.0) Urine Specific [place] 1.009 (1.001-1.035) Urine Protein Negative (Negative) Urine Ketones Negative (Negative) Urine Blood Negative /uL (Negative) Urine Nitrite Negative (Negative) Urine Bilirubin Negative (Negative) Urine Urobilinogen Normal mg/dL (Negative) Urine Leukocyte Esterase Negative /uL (Negative) Urine RBC 1 /hpf (0 - 4) Urine Microscopic WBC 2 /HPF (0-5) Urine Squamous Epithelial Cells Few /hpf (<5) Urine Renal Epithelial Cells Few /hpf (None Seen) Urine Bacteria Few /hpf (None Seen) H Urine Yeast (Budding) Occasional /hpf (None Urine Glucose Normal mg/dL (Normal) Microbiology Microbiology Date/Time Source Procedure Growth Status 06/08/25 03:45 Nose MRSA Screen - Final Complete Assessment/Plan Assessment/Plan Chest pain Status post syncope Paroxysmal AFib Hypertension Pulmonary hypertension Chronic kidney disease stage IIIA Dyslipidemia Plan: Continue current plan of care. Echocardiogram pending. Repeat x-ray. Further plan per orders Plan discussed with: Patient Date of Service: Jun 08, 2025 Billing Provider: ALBINA WALTON MD Common Visit Codes: [id number] INP/OBS CARE(HIGH) ALBINA WALTON MD Jun 08, 2025 17:28
--- NOTE | 2025-06-08 19:38 | DVHSR ---
APPROVED REPORT EXAM: Two-dimensional and M-mode echocardiogram with Doppler and color Doppler. Blood Pressure: 98/63 mmHg INDICATION Eval LVEF R/O hypokinesis RISK FACTORS Height: 5'8", Weight: 191 DIMENSIONS LVDd3.8 (3.8-5.7cm)LA (2D)3.9 (1.9-4.0cm)Aortic Root3.1 (2.0-3.7cm) LVDs2.4 (2.5-4.0cm)LA (MM) (1.9-4.0cm)Aortic Cusp Exc1.0 (1.5-2.0cm) EF (%) 55.0 (55-70%)Rt. Atrium5.0 (1.9-4.0cm)Asc. Aorta cm IVSd1.3 (0.7-1.1cm)RV (D) (1.8-2.4cm) PWd1.4 (0.7-1.1cm) Mitral Valve MitralMitral Stenosis E wave1.02m/sMV Mean GR.mmHg E/A ratio0.02D MVAcm2 Aortic Valve Aortic ValveAortic Stenosis V10.83m/Uche Mean GR.6mmHg V21.59m/Uche Peak GR.10mmHg LVOT Diameter2.1 (1.8-2.4cm)Doppler AVA1.81cm2 Pulmonic Valve V20.71m/s Tricuspid Valve TR Velocity3.54m/s [id number] Other Information Technically limited study due to body habitus. Conclusion Left ventricle: Mild concentric left ventricular hypertrophy was seen. LVEF was around 60%. There was no gross wall motion abnormality. Left atrium was mildly dilated. Right ventricle was moderately dilated with reduced systolic functio n. Right atrium was moderately dilated. Aortic valve was not well visualized. Aortic sclerosis with no stenosis was seen. There was no aort ic insufficiency. Mitral valve revealed mitral annual calcification of posterior leaflet. Minimal mitral valve prolaps e was seen. Mild mitral regurgitation was seen. Moderate tricuspid regurgitation was seen. Mild pu lmonary valve insufficiency was seen. Right ventricular systolic pressure was assessed elevated at 60 mm Hg. There was no pericardial effu zandra.
[2025-06-09] VITALS (7 sets, daily range): BP systolic 94–116; BP diastolic 55–77; PULSE 74–95; RESP 16–18; TEMP 97.4–98.4; O2SAT 91–100
--- NOTE | 2025-06-09 08:45 | DVHPN2 ---
Progress Note - Dictate Date Seen: Jun 09, 2025 Medical Necessity Reason Pt with a Central, PICC or Fol: No vital signs Vital Sign Date Time Temp Pulse Resp B/P (MAP) Pulse Ox O2 Delivery O2 Flow Rate FiO2 06/09/25 05:00 97.6 76 16 103/64 (77) 91 97.6 06/08/25 20:30 Nasal Cannula* 3 32 Total Intake and Output 06/08/25 06/08/25 06/09/25 15:00 23:00 07:00 Intake Total 800 ml 1010 ml 1300 ml Output Total 300 ml Balance 800 ml 1010 ml 1000 ml medications Current Medications Medications Dose Ordered Sig/Robi Route Start Time Stop Time Status Last Admin Dose Admin Acetaminophen 650 mg Q6HP PRN PO 06/07/25 23:30 06/08/25 22:42 650 MG Amiodarone HCl 200 mg DAILY PO 06/08/25 10:00 06/08/25 08:34 200 MG Apixaban 5 mg BID PO 06/08/25 10:00 06/08/25 21:01 5 MG Metoprolol Tartrate 12.5 mg BID PO 06/08/25 10:00 06/08/25 21:00 12.5 MG Montelukast Sodium 10 mg DAILY PO 06/08/25 10:00 06/08/25 08:35 10 MG Sildenafil Citrate 20 mg BID PO 06/08/25 10:00 06/08/25 21:01 20 MG laboratory and microbiology Laboratory Tests 06/08/25 03:15 Test 06/08/25 03:15 Range/Units Serum Glucose 89 74-106 mg/dL Assessment/Plan The patient is an 85-year-old female who initially presented to the emergency department on 06/07/2025 with syncope and recurrent chest pain. She reported a recent hospitalization at [facility] for acute chest pain and unstable angina. After discharge, she experienced worsening chest pain and a syncopal episode with loss of consciousness, witnessed by her daughter. Initial electrocardiogram demonstrated sinus rhythm with a ventricular rate of 98 bpm, AL interval prolonged at 216 ms, and no acute ST changes. Laboratory results were notable for hemoglobin 12.1, D-dimer 0.32, potassium 4.3, creatinine 1.1 (GFR 50), serial high-sensitivity troponin 7 - 8 - 7, BNP 103. Toxicology screen was negative. Influenza and COVID testing were negative. Chest X-ray revealed mild cardiomegaly with mild prominence of the central pulmonary vasculature. Past medical history includes hypertension, hyperlipidemia, atrial fibrillation, pulmonary hypertension, and COPD. Echocardiogram (06/2024): Mild concentric left ventricular hypertrophy with LVEF 6065%, no regional wall motion abnormalities, normal right ventricular size and systolic function. Left atrium mildly dilated, right atrium mildly enlarged. Aortic valve poorly visualized; bicuspid aortic valve cannot be ruled out. Mild aortic valve sclerosis without stenosis or regurgitation. Mild mitral annular calcification with mild mitral regurgitation. Moderate tricuspid regurgitation. Moderate pulmonary hypertension (RVSP 56 mmHg). Pulmonic valve and IVC not well visualized. No pericardial effusion. Echocardiogram (06/06/2025 [place]): Right ventricle mildly dilated with normal wall thickness and normal systolic function. Left ventricle with normal wall motion and diastolic dysfunction; EF 70%. Left atrium mildly dilated; right atrium mildly dilated. [id number] tricuspid regurgitation with possible tricuspid stenosis. Severe pulmonary hypertension with estimated RVSP 77 mmHg. No pericardial effusion reported. Echocardiogram (06/08/2025): Mild concentric left ventricular hypertrophy with LVEF ~60%, no gross wall motion abnormality. Left atrium mildly dilated; right ventricle mildly dilated with reduced systolic function; right atrium moderately dilated. Aortic valve poorly visualized with aortic sclerosis and no stenosis or insufficiency. Mitral valve with posterior leaflet annular calcification and minimal prolapse; mild mitral regurgitation. Moderate tricuspid regurgitation. Mild pulmonic insufficiency. Pulmonary hypertension with RVSP 60 mmHg. No pericardial effusion. Tele: A-flutter with variable block Trop (high sensitive): 8 - 7 - 8 BNP: 103.76 Admitting Diagnosis: Heart failure with preserved ejection fraction Pulmonary hypertension Atrial fibrillation Chest pain COPD A-Flutter with variable blocks Plan Recognizing presentation ACS at this point is not considered As ACS is not considered, no indication warranted for ischemic workup at present time Continuation of full-dose intermediate manager anticoagulation for CVA prophylaxis atrial fibrillation is advised Amiodarone: 200 mg PO BID Proceed with close observation for overt signs of fluid overload Proceed with strict intakes, outputs, and daily weights Proceed with close rate and rhythm surveillance Proceed with close hemodynamic surveillance Proceed with optimized blood pressure control Transfuse to sustain HGB levels above 7.0 Sustain Magnesium level greater than 2.0 Sustain Potassium level greater than 4.0 Follow up renal function and electrolytes Management in Telemetry Will proceed to follow from a cardiac perspective Further recommendations per clinical progression half-way monitor can be arranged as outpatient All available labs, EKGs, and images were personally reviewed Plan of care discussed with and agreed upon by patient/family/Primary RN. Prognosis: Guarded Thank you for allowing me to participate in the care of this patient. Further recommendations will depend on clinical progression, hospitalist, and other consultants. Will continue to follow with Primary. If you have any questions, please do not hesitate to contact me. A total of 75 minutes was spent reviewing the patient record, examining the patient, making a diagnostic and therapeutic plan, discussing this plan with medical personnel, following up on diagnostic studies and following the patient for clinical stability excluding any and all procedures. At least 50% of this time was spent in direct, [id number] contact. Plan discussed with: Patient, Other (nurse) LEXUS DELATORRE MD Jun 09, 2025 08:44
[2025-06-09 10:29] LABS: Hepatitis B Surface Antigen Negative (Negative); Hepatitis C Antibody Negative (Negative)
--- NOTE | 2025-06-09 11:34 | DVHPN2 ---
Subjective The patient seen and examined at bedside. still have chest pain today. Reviewed: Care Plan, H&P, Labs, Medications, Previous Orders, Radiology Changes from previous H/P or p: No Changes Objective Vitals Vital Signs Date Time Temp Pulse Resp B/P (MAP) Pulse Ox O2 Delivery O2 Flow Rate FiO2 06/09/25 09:18 97 97/62 06/09/25 09:17 97.4 18 93 97.4 06/09/25 08:00 Room Air* 0 21 Intake/Output Intake and Output 06/09/25 07:00 Intake Total 3110 ml Output Total 300 ml Balance 2810 ml Intake Oral 3110 ml Output Urine Total 300 ml # Voids 1 # Bowel Movements 1 General Appearance: Alert, Oriented X3, Cooperative, No acute distress HEENT: Atraumatic, PERRLA, EOMI, Mucous membr. moist/pink Neck: Supple Lungs: Clear to auscultation Cardiovascular: Regular rate, Normal S1, Normal S2, No murmurs, Gallops, Rubs Abdomen: Normal bowel sounds, Soft, No tenderness Neuro: Cranial nerves 3-12 NL Psych/Mental Status: Mental status NL Medications Current Medications Medications Dose Ordered Sig/Robi Route Start Time Stop Time Status Last Admin Dose Admin Acetaminophen 650 mg Q6HP PRN PO 06/07/25 23:30 06/08/25 22:42 650 MG Apixaban 5 mg BID PO 06/08/25 10:00 06/09/25 09:17 5 MG Metoprolol Tartrate 12.5 mg BID PO 06/08/25 10:00 06/08/25 21:00 12.5 MG Montelukast Sodium 10 mg DAILY PO 06/08/25 10:00 06/09/25 09:18 10 MG Sildenafil Citrate 20 mg BID PO 06/08/25 10:00 06/09/25 09:18 20 MG Amiodarone HCl 200 mg BID PO 06/09/25 22:00 UNV Laboratory Results Laboratory Tests 06/08/25 03:15 Coagulation Test 06/08/25 12:44 D-Dimer, Quantitative 0.32 mg/L FEU (0.0-0.49) Urinalysis Test 06/08/25 04:30 Urine Color Light-yellow (Yellow) Urine Clarity Clear (Clear) Urine pH 5.5 (5.0-9.0) Urine Specific [place] 1.009 (1.001-1.035) Urine Protein Negative (Negative) Urine Ketones Negative (Negative) Urine Blood Negative /uL (Negative) Urine Nitrite Negative (Negative) Urine Bilirubin Negative (Negative) Urine Urobilinogen Normal mg/dL (Negative) Urine Leukocyte Esterase Negative /uL (Negative) Urine RBC 1 /hpf (0 - 4) Urine Microscopic WBC 2 /HPF (0-5) Urine Squamous Epithelial Cells Few /hpf (<5) Urine Renal Epithelial Cells Few /hpf (None Seen) Urine Bacteria Few /hpf (None Seen) H Urine Yeast (Budding) Occasional /hpf (None Urine Glucose Normal mg/dL (Normal) Microbiology Microbiology Date/Time Source Procedure Growth Status 06/08/25 03:45 Nose MRSA Screen - Final Complete Labs and/or images reviewed: Labs reviewed by me Assessment/Plan Assessment/Plan Chest pain Status post syncope Paroxysmal AFib Hypertension Pulmonary hypertension Chronic kidney disease stage IIIA Dyslipidemia Continue current management. Continue with Eliquis Continue amiodarone. Continue with viagra for pulmonary HTN. Continue HTN meds Will monitor kidney function Plan discussed with: Patient Date of Service: Jun 09, 2025 Billing Provider: DESHAUN LAY MD Common Visit Codes: [id number] INP/OBS CARE(HIGH) DESHAUN LAY MD Jun 09, 2025 11:34
[2025-06-09] MEDS: AMIODARONE HCL 200 MG TAB PO SCH (21:23)
[2025-06-10 01:00] VITALS: BP 118/80; PULSE 90; RESP 18; TEMP 98.7; O2SAT 98
[2025-06-10 05:00] VITALS: BP 136/92; PULSE 79; RESP 17; TEMP 97.8; O2SAT 100
[2025-06-10 06:03] LABS: Hematocrit 38.0 % (36.0-46.0); Hemoglobin 11.9 g/dL (12.2-16.2); Mean Corpuscular Hemoglobin 29.1 pg (28.0-32.0); Mean Corpuscular Volume 92.4 fL (80.0-100.0)
[2025-06-10 06:11] LABS: Chloride 106 mmol/L (98-107); Potassium 4.6 mmol/L (3.5-5.1); Sodium 139 mmol/L (136-145)
[2025-06-10 06:12] LABS: Anion Gap 9 (5-15); Carbon Dioxide 24 mmol/L (20-31)
[2025-06-10 06:13] LABS: Calcium 8.6 mg/dL (8.7-10.4)
[2025-06-10 06:17] LABS: Glucose 91 mg/dL (74-106)
[2025-06-10 06:18] LABS: BUN/Creatinine Ratio 9.3 (10.0-20.0); Blood Urea Nitrogen 10 mg/dL (9-23)
[2025-06-10 06:55] LABS: Total Cells Counted 100.0 (100)
--- NOTE | 2025-06-10 07:57 | DVHPN2 ---
Progress Note - Dictate Date Seen: Jun 10, 2025 Medical Necessity Reason Pt with a Central, PICC or Fol: No vital signs Vital Sign Date Time Temp Pulse Resp B/P (MAP) Pulse Ox O2 Delivery O2 Flow Rate FiO2 06/10/25 05:00 97.8 79 17 136/92 (107) 100 97.8 06/09/25 20:00 Nasal Cannula* 2 28 Total Intake and Output 06/09/25 06/09/25 06/10/25 15:00 23:00 07:00 Intake Total 500 ml 350 ml Balance 500 ml 350 ml medications Current Medications Medications Dose Ordered Sig/Robi Route Start Time Stop Time Status Last Admin Dose Admin Acetaminophen 650 mg Q6HP PRN PO 06/07/25 23:30 06/09/25 21:24 650 MG Apixaban 5 mg BID PO 06/08/25 10:00 06/09/25 21:24 5 MG Metoprolol Tartrate 12.5 mg BID PO 06/08/25 10:00 06/09/25 21:23 12.5 MG Montelukast Sodium 10 mg DAILY PO 06/08/25 10:00 06/09/25 09:18 10 MG Sildenafil Citrate 20 mg BID PO 06/08/25 10:00 06/09/25 21:23 20 MG Amiodarone HCl 200 mg BID PO 06/09/25 22:00 06/09/25 21:23 200 MG laboratory and microbiology Laboratory Tests 06/10/25 05:23 Test 06/10/25 05:23 Range/Units Serum Glucose 91 74-106 mg/dL Assessment/Plan The patient is an 85-year-old female who initially presented to the emergency department on 06/07/2025 with syncope and recurrent chest pain. She reported a recent hospitalization at [facility] for acute chest pain and unstable angina. After discharge, she experienced worsening chest pain and a syncopal episode with loss of consciousness, witnessed by her daughter. Initial electrocardiogram demonstrated sinus rhythm with a ventricular rate of 98 bpm, [place] interval prolonged at 216 ms, and no acute ST changes. Laboratory results were notable for hemoglobin 12.1, D-dimer 0.32, potassium 4.3, creatinine 1.1 (GFR 50), serial high-sensitivity troponin 7 - 8 - 7, BNP 103. Toxicology screen was negative. Influenza and COVID testing were negative. Chest X-ray revealed mild cardiomegaly with mild prominence of the central pulmonary vasculature. Past medical history includes hypertension, hyperlipidemia, atrial fibrillation, pulmonary hypertension, and COPD. Echocardiogram (06/2024): Mild concentric left ventricular hypertrophy with LVEF 6065%, no regional wall motion abnormalities, normal right ventricular size and systolic function. Left atrium mildly dilated, right atrium mildly enlarged. Aortic valve poorly visualized; bicuspid aortic valve cannot be ruled out. Mild aortic valve sclerosis without stenosis or regurgitation. Mild mitral annular calcification with mild mitral regurgitation. Moderate tricuspid regurgitation. Moderate pulmonary hypertension (RVSP 56 mmHg). Pulmonic valve and IVC not well visualized. No pericardial effusion. Echocardiogram (06/06/2025 [place]): Right ventricle mildly dilated with normal wall thickness and normal systolic function. Left ventricle with normal wall motion and diastolic dysfunction; EF 70%. Left atrium mildly dilated; right atrium mildly dilated. [id number] tricuspid regurgitation with possible tricuspid stenosis. Severe pulmonary hypertension with estimated RVSP 77 mmHg. No pericardial effusion reported. Echocardiogram (06/08/2025): Mild concentric left ventricular hypertrophy with LVEF ~60%, no gross wall motion abnormality. Left atrium mildly dilated; right ventricle mildly dilated with reduced systolic function; right atrium moderately dilated. Aortic valve poorly visualized with aortic sclerosis and no stenosis or insufficiency. Mitral valve with posterior leaflet annular calcification and minimal prolapse; mild mitral regurgitation. Moderate tricuspid regurgitation. Mild pulmonic insufficiency. Pulmonary hypertension with RVSP 60 mmHg. No pericardial effusion. 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 anticoagulation for CVA prophylaxis atrial fibrillation is advised (on Eliquis) Amiodarone: 200 mg PO BID Cardiac [place]: stable Proceed with close observation for overt signs of fluid overload Proceed with strict intakes, outputs, and daily weights Proceed with close rate and rhythm surveillance Proceed with close hemodynamic surveillance Proceed with optimized blood pressure control Transfuse to sustain HGB levels above 7.0 Sustain Magnesium level greater than 2.0 Sustain Potassium level greater than 4.0 Follow up renal function and electrolytes Management in Telemetry Will proceed to follow from a cardiac perspective Further recommendations per clinical progression keno terminal operator monitor can be arranged as outpatient All available labs, EKGs, and images were personally reviewed Plan of care discussed with and agreed upon by patient/family/Primary RN. Prognosis: Guarded Thank you for allowing me to participate in the care of this patient. Further recommendations will depend on clinical progression, hospitalist, and other consultants. Will continue to follow with Primary. If you have any questions, please do not hesitate to contact me. A total of 75 minutes was spent reviewing the patient record, examining the patient, making a diagnostic and therapeutic plan, discussing this plan with medical personnel, following up on diagnostic studies and following the patient for clinical stability excluding any and all procedures. At least 50% of this time was spent in direct, [id number] contact. Plan discussed with: Patient, Other (nurse) LEXUS DELATORRE MD Jun 10, 2025 07:57
[2025-06-10 08:00] VITALS: PULSE 97
[2025-06-10 13:19] VITALS: BP 107/78; PULSE 92; RESP 19; TEMP 97; O2SAT 92
== END 2025-06-10 15:36 | disposition home or self-care (01) | DRG 308 ==
LOC: ER 16:39 → EDBD 16:39 → OVERFLOW 23:28 → TELE-WESTW 06-08 03:28
PROVIDERS: ADMIT Internal Medicine; ATTEND Internal Medicine
DX: I48.0 Paroxysmal atrial fibrillation (principal); J96.01 Acute respiratory failure with hypoxia; I13.0 Hypertensive heart and chronic kidney disease with heart failure and stage 1 through stage 4 chronic kidney disease, or unspecified chronic kidney disease; I50.30 Unspecified diastolic (congestive) heart failure; E78.5 Hyperlipidemia, unspecified; I27.20 Pulmonary hypertension, unspecified; Z20.822 Contact with and (suspected) exposure to COVID-19; N18.31 Chronic kidney disease, stage 3a; J44.9 Chronic obstructive pulmonary disease, unspecified; I07.1 Rheumatic tricuspid insufficiency; I35.8 Other nonrheumatic aortic valve disorders; Z79.899 Other long term (current) drug therapy; Z82.49 Family history of ischemic heart disease and other diseases of the circulatory system; Z90.710 Acquired absence of both cervix and uterus; Z98.51 Tubal ligation status; Z79.01 Long term (current) use of anticoagulants
CPT/HCPCS: 36415; 71045; 80048; 80053; 80061; 80307; 81001; 83036; 83880; 84484; 85007; 85025; 85027; 85379; 86803; 87081; 87340; 87426; 87804; 93005; 93306; 96360; 99291; G0378